=== PATIENT | female | born 1930 | race Caucasian/White ===

== ENCOUNTER 2019-04-09 18:12 | Inpatient (IN) | payer BC ==
--- NOTE | 2019-04-09 19:10 | PDOC ---
History of Present Illness - General Chief Complaint: Shortness of Breath Stated Complaint: SOB History Source: Patient, Family (Son) Exam Limitations: No Limitations - History of Present Illness Initial Comments: Pt is an 88 yo, Pashto-speaking F, with PMH of CHF, COPD, AFib (on eliquis), recent pleural effusions (s/p drainage), L lung CA (s/p LLL lobectomy), IDDM, who is presenting via EMS from [facility] with wheezing and SOB. Pt has been admitted at [place] a few times over the past few months, for pneumonia, b/l LE cellulitis, and "fluid in the lungs" which required drainage on the right side x2. Pt was on steroids 3 weeks ago, but since that time has been doing well and was ambulating at [facility]. Pt began to have dry cough yesterday, and pt had worsening wheezing and respiratory distress after breathing treatments at [facility] this evening. Pt denies any fevers/chills, headache, vision changes, syncope, chest pain, palpitations, nausea/vomiting, abdominal pain, blood in the urine or stool, urinary symptoms, diarrhea/constipation, or leg swelling. Allergies: NKDA PCP: Dr. Ambar Calvo Cards: Dr. Sher ([place]) Social: Pt denies any cigarette, alcohol, or drug use. Pt denies any recent travel or sick contacts. Surgical: LLL lobectomy, hysterectomy, cholecystectomy Family: no relevant history. 04/09/19 20:11 04/09/19 20:36 PT IS DNR/DNI, DISCUSSED WITH SON AND CONFIRMED WITH PAPERWORK TODAY. Son is HCP. 04/09/19 20:39 Past History - Travel Traveled outside of the country in the last 30 days: No Close contact w/someone who was outside of country & ill: No - Past Medical History Allergies/Adverse Reactions: Allergies Allergy/AdvReac Type Severity Reaction Status Date / Time No Known Drug Allergies Allergy Verified 04/09/19 18:24 Home Medications: Ambulatory Orders Aspirin Coated [Ecotrin -] 81 mg PO WEEKLY 01/17/14 Calcium Carbonate [Calcium] 600 mg PO BID 01/17/14 Glimepiride 2 mg PO HS 01/17/14 Irbesartan 300 mg PO HS 01/17/14 Metoprolol Succinate [Toprol XL -] 50 mg PO DAILY 01/17/14 Simvastatin [Zocor -] 20 mg PO DAILY 01/17/14 metFORMIN HCL [Metformin ER Osmotic] 500 mg PO DAILY 01/17/14 Anemia: No Asthma: No Cancer: Yes (LEFT LUNG) Cardiac Disorders: No CVA: No COPD: No CHF: No Dementia: No Diabetes: Yes GI Disorders: No Disorders: Yes (INCONTINENCE) HTN: Yes Hypercholesterolemia: Yes Liver Disease: No Seizures: No Thyroid Disease: No - Surgical History Abdominal Surgery: No Appendectomy: Yes Cardiac Surgery: No Cholecystectomy: No Lung Surgery: Yes (L LOBECTOMY) Neurologic Surgery: No - Immunization History Immunization Up to Date: Yes - Psycho Social/Smoking Cessation Hx Smoking History: Never smoked Have you smoked in the past 12 months: No Information on smoking cessation initiated: No Hx Alcohol Use: No Drug/Substance Use Hx: No Substance Use Type: None Hx Substance Use Treatment: No Respiratory Specific PMHX - Complaint Specific PMHX Hx Airway Support: No Hx Intubation: No Hx Asthma: Yes (COPD) Hx Smoking Exposure: No Hx Vaping: No Hx Allergic Rhinitis: No Hx Exposure to Respiratory Irritants: No Hx Bronchitis: No Hx Pneumonia: Yes Hx Pulmonary Embolus: No Hx TB (Tuberculosis): No Review of Systems - Review of Systems Able to Perform ROS?: Yes Is the patient limited Bulgarian proficient: No Constitutional: Yes: Weight Stable. No: Chills, Diaphoresis, Fever, Loss of Appetite, Malaise, Weakness HEENTM: No: Recent change in vision, Nose Congestion, Throat Pain, Throat Swelling, Difficulty Swallowing Respiratory: Yes: Cough, Shortness of Breath, SOB with Exertion, SOB at Rest, Wheezing. No: Orthopnea, Productive cough, Hemoptysis Cardiac (ROS): Yes: Edema. No: Chest Pain, Irregular Heart Rate, Lightheadedness, Palpitations, Syncope, Chest Tightness ABD/GI: No: Constipated, Diarrhea, Nausea, Poor Appetite, Poor Fluid Intake, Rectal Bleeding, Vomiting, Abdominal cramping : No: Burning, Dysuria, Frequency, Flank Pain, Hematuria, Pain, Urgency Musculoskeletal: No: Joint Pain, Joint Swelling, Muscle Pain, Muscle Weakness Integumentary: No: Rash Neurological: No: Headache, Numbness, Weakness, Unsteady Gait, Dizziness Psychiatric: No: Sleep Pattern Change, Change in Appetite Endocrine: No: Increased Urine, Change in Weight Hematologic/Lymphatic: No: Anemia, Blood Clots, Easy Bleeding, Easy Bruising All Other Systems: Reviewed and Negative *Physical Exam - Vital Signs Last Vital Signs Temp Pulse Resp BP Pulse Ox 98.8 F 101 H 22 H 188/70 H 100 04/09/19 18:48 04/09/19 18:48 04/09/19 18:48 04/09/19 18:24 04/09/19 18:48 - Physical Exam Tachycardic, BP 130s/80s on my exam, pt afebrile. Pt in respiratory distress on venti mask, obese body habitus. Pt alert, but somewhat lethargic. Responds to questions appropriately when asked in Pashto by the son. test clerk generally intact, muscular strength and sensation intact. No midline spinal tenderness, step-offs, or crepitus. Head normocephalic, atraumatic. Eyes PERRLA, EOMI. Oropharynx without erythema or exudates, no LAD b/l. No nasal congestion. Hearing intact. +systolic murmur, +JVD, significant b/l edema of all extremities, pitting to low thigh Severely diminished breath sounds, crackles b/l, +abdominal retractions. No abdominal or CVA tenderness to palpation, no rebound, no guarding. Abdomen soft, non-distended, and with normoactive bowel sounds. Skin without jaundice or rash. 04/09/19 20:29 04/09/19 20:42 ED Treatment Course - LABORATORY CBC & Chemistry Diagram: 04/09/19 19:25 04/09/19 19:25 Medical Decision Making - Medical Decision Making Pt was seen at bedside, also will be seen by attending Dr. Doe. Pt presenting with b/l edema, SOB, +JVD and wheezing from VT, after being provided multiple nebulizer treatments. Presentation more consistent with CHF exacerbation vs pleural effusions vs ACS vs infection (pneumonia) Provided 1 tablet SL NG, starting NG drip @40 mcg, Bipap for respiratory distress and edema. Will continue to reassess pt and monitor for symptomatic improvement. ECG: Accelerated junctional rhythm with PVCs, LAF (Hr 107, QRS 102, QTc 440). No TWIs or significant ST segment changes. Previous EKG from 2013, but is unreadable quality in the chart. 12/13/19 20:47 Pt improved significantly after BIPAP and NG, tapering NG drip down, O2 100% CBC with elevated WBC -- covering for HAP considering recent hospital stay and fluid removal/instrumentation CMP with elevated K and BUN, pt does not report any recent rectal bleeding, pleural effusions likely more from CHF or recurrent malignancy, possible pneumonia; pt was on spironolactone and K supplementation, no new peaked T's Providing 40 mg IV push lasix and [place] catheter for fluid removal Paged hospitalist team for inpatient admission for respiratory assistance, management of effusions. PT IS DNR/DNI 04/09/19 20:50 Pt admitted to hospitalist team (Dr. Carter) 04/09/19 21:21 Discharge - Discharge Information Problems reviewed: Yes Clinical Impression/Diagnosis: Pleural effusion, Hyperkalemia, Respiratory distress Condition: Stable - Admission Yes - Follow up/Referral Referrals: Miguelito Edwards MD [Primary Care Provider] - - Patient Discharge Instructions - Post Discharge Activity
[2019-04-09] MEDS ORDERED: NITROGLYCERIN 25MG/D5W 250ML 25 MG/250 ML ML IVPB SCH (19:30)
[2019-04-09] MEDS ORDERED: NITROGLYCERIN 25MG/D5W 250ML 25 MG/250 ML ML IVPB ONE (19:30)
[2019-04-09 19:44] LABS: BASO % 0.1 % (0-2.0); EOS % 0.4 % (0-4.5); HEMATOCRIT 35.1 % (32.4-45.2); HEMOGLOBIN 10.8 GM/dL (10.7-15.3); LYMPH % 5.3 % (8-40); MCH 30.5 pg (25.7-33.7); MCHC 30.6 g/dl (32.0-36.0); MEAN CELL VOLUME 99.5 fl (80-96); MEAN PLT VOLUME 9.3 fl (7.5-11.1); MONO % 7.2 % (3.8-10.2); PLATELET COUNT 173 K/MM3 (134-434); RBC 3.53 M/mm3 (3.60-5.2); RDW 21.3 % (11.6-15.6); WHITE BLOOD COUNT 14.1 K/mm3 (4.0-10.0)
--- NOTE | 2019-04-09 19:45 | PDOC ---
Attending Attestation - Resident Resident Name: Robyn Azevedo - ED Attending Attestation I have performed the following: I have examined & evaluated the patient, The case was reviewed & discussed with the resident, I agree w/resident's findings & plan - HPI HPI: 04/09/19 21:59 Pt is at [facility],and she has sudden onset SOB today; bilat leg pitting edema; she has known afib and CHF and she was recently placed on bumex and spironolactone , as per her son. - Physicial Exam PE: 04/09/19 21:59 Afebrile 2+ pitting edema of her legs bilaterally; cellulitis is improved; pt recently was treated with abx afor cellulitis of the legs. lungs decreased breaths at the bases heart irregularly irreg. She has bigeminy on her EKG. - Medical Decision Making 04/09/19 21:57 UA normal Flu negative Pt has pleural effusions bilaterally on CXR She is improved with BiPAP Pt was initially given SL NTG and started on a nitro drip which has been since tapered and removed. 04/09/19 21:58 K+ elevated; and creatinine is normal, so patient was treated with lasix 40mg IVP 04/10/19 00:57 Pt admitted to [facility] CHF; pleural effusion
[2019-04-09 19:56] LABS: INR 1.55 (0.83-1.09); PROTHROMBIN TIME (PATIENT) 18.4 SEC (9.7-13.0)
[2019-04-09] MEDS ORDERED: BUMETANIDE INJECTION 1 MG/4 ML VIAL IVPUSH ONE (20:06)
[2019-04-09 20:07] LABS: ARTERIAL BLD GAS O2 SATURATION 99.1 % (95-98); ARTERIAL BLOOD GAS BASE EXCESS 3.9 meq/l (-2-2); ARTERIAL BLOOD GAS PCO2 58.9 mmHg (35-45); ARTERIAL BLOOD GAS PO2 191 mmHg (80-100); ARTERIAL BLOOD GAS pH 7.33 (7.35-7.45); CARBOXYHEMOGLOBIN 1.2 % (0-2)
[2019-04-09] MEDS ORDERED: PIPERACILLIN/TAZOB 3.375 GM 3.375 GM in DEXTROSE 5%-WATER - 50 ML IVPB ONE (20:07)
[2019-04-09] MEDS ORDERED: VANCOMYCIN 1,000 MG in DEXTROSE 5%-WATER - 250 ML IVPB ONE (20:07)
[2019-04-09] MEDS ORDERED: AZITHROMYCIN IVPB 500 MG in DEXTROSE 5%-WATER - 250 ML IVPB ONE (20:08)
[2019-04-09 20:14] LABS: ALBUMIN 3.2 g/dl (3.4-5.0); ALK PHOS 301 U/L (45-117); BILIRUBIN,TOTAL 0.4 mg/dL (0.2-1); BLOOD UREA NITROGEN 57.4 mg/dL (7-18); CALCIUM 8.6 mg/dL (8.5-10.1); CHLORIDE 101 mmol/L (98-107); CO2 32 mmol/L (21-32); CREATININE 0.9 mg/dL (0.55-1.3); GLUCOSE,RANDOM 192 mg/dL (74-106); SGPT/ALT 35 U/L (13-61); SODIUM 138 mmol/L (136-145); TOT PROT 6.4 g/dl (6.4-8.2)
[2019-04-09 20:15] LABS: ANION GAP 5 MMOL/L (8-16); MAGNESIUM 2.9 mg/dL (1.8-2.4); POTASSIUM 5.9 mmol/L (3.5-5.1); SGOT/AST 29 U/L (15-37)
[2019-04-09] MEDS ORDERED: FUROSEMIDE 40 MG/4 ML INJECTABLE VIAL IVPUSH ONE (20:24)
[2019-04-09] MEDS ORDERED: AZITHROMYCIN IVPB 500 MG/250 ML BAG IVPB ONE (20:28)
[2019-04-09] MEDS ORDERED: FUROSEMIDE 40 MG/4 ML INJECTABLE VIAL ONE (20:29)
[2019-04-09] MEDS ORDERED: PIPERACILLIN/TAZOB 3.375 GM 3.375 GM/50 ML BAG IVPB ONE (20:29)
[2019-04-09] MEDS ORDERED: VANCOMYCIN 1 GRAM (PRE-DOCKED) 1,000 MG/250 ML BAG IVPB ONE ×2 (20:29→22:24)
[2019-04-09 20:54] LABS: ANISOCYTOSIS 2+; MACROCYTOSIS 2+
--- NOTE | 2019-04-09 21:06 | PN ---
Teaching Attending Note Name of Resident: Beny Thacker ATTENDING PHYSICIAN STATEMENT I saw and evaluated the patient. I reviewed the resident's note and discussed the case with the resident. I agree with the resident's findings and plan as documented. SUBJECTIVE: 88 yo [place]an-speaking Woman, with PMH of CHF, COPD, AFib (on eliquis), Recent pleural effusion bilateral drainage, L lung CA (s/p LLL lobectomy), IDDM, who is Who was sent in from [facility] with complaints of shortness of breath and wheezing. Noted to have extensive bilateral pleural effusions on chest x-ray, was given vancomycin and Zosyn empirically in the emergency room.After speaking with the son, Yogesh, patient was reported to have right sided thoracocentesis 5 weeks ago at [facility]. She was subsequently sent to [facility] for rehabilitation.As per son, work-up from pleural fluid was negative for any malignancy or infection at that time. OBJECTIVE: Last Vital Signs Temp Pulse Resp BP Pulse Ox 98.8 F 102 H 20 113/55 L 100 04/09/19 18:48 04/09/19 21:09 04/09/19 21:09 04/09/19 21:09 04/09/19 21:09 GENERAL: Well developed, well nourished. Awake and alert. No acute distress. HEENT: Normocephalic, atraumatic. PERRLA, EOMI. No conjunctival pallor. Sclera are non- icteric. Moist mucous membranes. Oropharynx is clear. NECK: Supple. Full ROM. No JVD. Carotid pulses 2+ and symmetric, without bruits. No thyromegaly. No lymphadenopathy. CARDIOVASCULAR: Regular rate and rhythm. No murmurs, rubs, or gallops. Distal pulses are 2+ and symmetric. PULMONARY: Visible respiratory distress, accessory respiratory muscle use, Soft. Non-tender. Non-distended. No rebound or guarding. No organomegaly. Normoactive bowel sounds. MUSCULOSKELETAL Normal range of motion at all joints. No bony deformities or tenderness. No CVA tenderness. EXTREMITIES: Bilateral pitting edema up to knees in lower extremities SKIN: Warm and dry. Normal capillary refill. No rashes. No jaundice. PSYCHIATRIC: Cooperative. Good eye contact. Appropriate mood and affect. Abnormal Lab Results 04/09/19 04/09/19 04/09/19 19:25 19:25 19:25 WBC 14.1 H RBC 3.53 L MCV 99.5 H MCHC 30.6 L RDW 21.3 H Absolute Neuts (auto) 12.2 H Neutrophils % 87.0 H Lymphocytes % 5.3 L PT with INR INR ABG pH ABG pCO2 at Pt Temp ABG pO2 at Pt Temp ABG HCO3 ABG O2 Sat (Measured) ABG Base Excess Potassium 5.9 H Anion Gap 5 L BUN 57.4 H Random Glucose 192 H Magnesium 2.9 H Alkaline Phosphatase 301 H B-Natriuretic Peptide 4738.0 H Albumin 3.2 L 04/09/19 04/09/19 19:25 19:30 WBC RBC MCV MCHC RDW Absolute Neuts (auto) Neutrophils % Lymphocytes % PT with INR 18.40 H INR 1.55 H ABG pH 7.33 L ABG pCO2 at Pt Temp 58.9 H ABG pO2 at Pt Temp 191 H ABG HCO3 30.0 H ABG O2 Sat (Measured) 99.1 H ABG Base Excess 3.9 H Potassium Anion Gap BUN Random Glucose Magnesium Alkaline Phosphatase B-Natriuretic Peptide Albumin Chest x-ray appreciated with reportlarge bilateral pleural effusions appreciated ASSESSMENT AND PLAN: 88-year-old woman with history of lung cancer status post left lower lobe lung resection with hypoxemic, hypercapnic respiratory failure Likely secondary to bilateral pleural effusions along with possibles COPD exacerbationnoted to have CO2 retention on ABG. Patient is noted to be DNR/DNI. Cannot rule out hospital-acquired pneumonia as patient has leukocytosis, respiratory distress, cough.Pleural effusions may be secondary to her CHF however should rule out parapneumonic effusion from possible pneumonia. Admit to telemetry Discuss goals of cares with family Obtain medical records from [facility] Infectious disease consult Vancomycin, cefepime, azithromycin for treatment of pneumonia Lactic acid Continue BiPAP Trend troponin We will need to repeat blood gas CT Of chest to evaluate full extent of pleural effusions bilaterally Pulmonary evaluation for possible therapeutic and diagnostic thoracocentesis bilaterally Monitor vital signs closely #Normocytic anemia Trend CBC Stool for fecal occult blood Iron studies, ferritin, TSH, vitamin B12, red blood smear #Fluid overloadmay be secondary to CHF, bilateral pedal edema, pleural effusions Furosemide 40 mg IV daily Spironolactone Transthoracic echo Fluid and salt restriction I's and O's Daily weights Lower extremity Doppler bilaterally to rule out DVT Cardiology consult #Hyperkalemia Insulin , Furosemide Repeat potassium #Diabetes mellitus with uncontrolled hyperglycemia NovoLog sliding scale Send A1c #Elevated alkaline phosphatase Right upper quadrant ultrasound to rule out cholestatic process #DVT prophylaxisheparin subcutaneously
[2019-04-09 21:41] LABS: URINE APPEARANCE CLEAR; URINE BILIRUBIN NEGATIVE (NEGATIVE); URINE COLOR YELLOW; URINE GLUCOSE (UA) NEGATIVE (NEGATIVE); URINE KETONE NEGATIVE (NEGATIVE); URINE LEUK ESTERASE NEGATIVE (NEGATIVE); URINE NITRITE NEGATIVE (NEGATIVE); URINE PROTEIN NEGATIVE (NEGATIVE); URINE UROBILINOGEN 0.2 mg/dL (0.2-1.0)
--- NOTE | 2019-04-09 22:31 | HP ---
CHIEF COMPLAINT: Shortness of breath PCP: Dr. Ambar Calvo HISTORY OF PRESENT ILLNESS: Patient is [place] speaking, and the son is bedside and serving as assembler erector 88F with PMH of COPD, CHF, AFib on Elliquis, DM II, Lung cancer s/p resection who presents with 1 day history of wheezing and shortness of breath from [facility]. Patient was at [facility] for short term rehab after a recent decline in health the past few months. During the previous 2 weeks, patient was stable while at [facility], only receiving nasal cannula oxygen at night, with no oxygen needs during the day. Yesterday staff noted that she was wheezing with a nonproductive cough, and today she required nasal cannula during the daytime. Patient received treatments while at the facility but they did not help her respiratory status. Patient was feeling more lethargic, and patient's son noted that she had increased swelling of her legs. Patient denies any chest pain, but does feel that she is having palpitations. Patient denies pleuritic pain, abdominal pain, dysuria, hematuria, nausea, vomiting, and diarrhea. ER course was notable for: (1)Chest X-Ray showed notable effusions b/l (2)Patient was given Zoysn 3.375 gram IV, Zithromax 500 mg IV, and Vancomycin 1 gram IV (3)Patient was placed on BiPAP for respiratory distress Recent Travel: none PAST MEDICAL HISTORY: CHF, COPD, Afib on Elliquis, lung cancer s/p LLL resection , DM II FAMILY MEDICAL HISTORY: Brother with dementia PAST SURGICAL HISTORY: Tanner placed in right femur in 2019. Hysterectomy, ? hand surgery. Social History: Smoking:Denies Alcohol:Denies Drugs: Denies Currently lives with son and daugther in law. Allergies No Known Drug Allergies Allergy (Verified 04/09/19 18:24) HOME MEDICATIONS: Home Medications Medication Instructions Recorded Apixaban [Eliquis] 2.5 mg PO BID 04/09/19 Atorvastatin Calcium 20 mg PO HS 04/09/19 Bumetanide 2 mg PO BID 04/09/19 Diltiazem [Cardizem -] 60 mg PO DAILY 04/09/19 Docusate Sodium [Colace] 300 mg PO DAILY 04/09/19 Insulin Glargine,Hum.rec.anlog 5 unit SQ HS 04/09/19 [Basaglar Kwikpen U-100] Ipratropium/Albuterol Sulfate 3 ml IH Q6H 04/09/19 [Iprat-Albut 0.5-3(2.5) mg/3 ml] L. Acidophilus/Pectin, Pease 1 each PO DAILY 04/09/19 [Acidophilus Capsule] Magnesium Oxide 400 mg PO BID 04/09/19 Magnesium Oxide 400 mg PO BID 04/09/19 Metoprolol Succinate 25 mg PO DAILY 04/09/19 Nut.tx.gluc.intoler,Lac-Fr,Soy 237 ml PO BID 04/09/19 [Glucerna] Polyethylene Glycol 3350 [Miralax 17 gm PO DAILY 04/09/19 (For Daily Use) -] Potassium Chloride 20 meq PO BID 04/09/19 Sitagliptin Phosphate [Januvia -] 50 mg PO DAILY 04/09/19 Spironolactone [Aldactone] 50 mg PO DAILY 04/09/19 acetaZOLAMIDE [Diamox -] 250 mg PO DAILY 04/09/19 REVIEW OF SYSTEMS CONSTITUTIONAL: Absent: fever, chills, diaphoresis, generalized weakness, malaise, loss of appetite, weight change HEENT: Absent: rhinorrhea, nasal congestion, throat pain, throat swelling, difficulty swallowing, mouth swelling, ear pain, eye pain, visual changes CARDIOVASCULAR: Absent: chest pain, syncope, palpitations, irregular heart rate, lightheadedness , peripheral edema RESPIRATORY: cough, shortness of breath, Absent: dyspnea with exertion, orthopnea, wheezing, stridor, hemoptysis GASTROINTESTINAL: Absent: abdominal pain, abdominal distension, nausea, vomiting, diarrhea, constipation, melena, hematochezia GENITOURINARY: Absent: dysuria, frequency, urgency, hesitancy, hematuria, flank pain, genital pain MUSCULOSKELETAL: Absent: myalgia, arthralgia, joint swelling, back pain, neck pain SKIN: Absent: rash, itching, pallor HEMATOLOGIC/IMMUNOLOGIC: Absent: easy bleeding, easy bruising, lymphadenopathy, frequent infections ENDOCRINE: Absent: unexplained weight gain, unexplained weight loss, heat intolerance, cold intolerance NEUROLOGIC: Absent: headache, focal weakness or paresthesias, dizziness, unsteady gait, seizure, mental status changes, bladder or bowel incontinence PSYCHIATRIC: Absent: anxiety, depression, suicidal or homicidal ideation, hallucinations. PHYSICAL EXAMINATION Vital Signs - 24 hr 12/13/19 12/13/19 12/13/19 18:15 18:24 18:48 Temperature 98.8 F 98 F 98.8 F Pulse Rate 112 H 57 L 101 H Pulse Rate [ Apical] Respiratory 26 H 16 22 H Rate Blood Pressure 118/87 188/70 H Blood Pressure [Right Arm] O2 Sat by Pulse 100 97 100 Oximetry (%) 04/09/19 04/09/19 04/09/19 19:30 19:45 19:49 Temperature Pulse Rate Pulse Rate [ 98 H 95 H Apical] Respiratory 26 H 24 H Rate Blood Pressure Blood Pressure 137/98 118/76 [Right Arm] O2 Sat by Pulse 100 100 Oximetry (%) 04/09/19 04/09/19 04/09/19 19:50 20:00 20:15 Temperature Pulse Rate 106 H Pulse Rate [ 86 103 H Apical] Respiratory 24 H 20 Rate Blood Pressure Blood Pressure 126/77 110/82 [Right Arm] O2 Sat by Pulse 100 100 100 Oximetry (%) 04/09/19 04/09/19 04/09/19 20:35 20:49 21:09 Temperature Pulse Rate Pulse Rate [ 100 H 102 H 102 H Apical] Respiratory 12 18 20 Rate Blood Pressure Blood Pressure 118/70 117/56 L 113/55 L [Right Arm] O2 Sat by Pulse 100 100 100 Oximetry (%) GENERAL: Awake, alert, and fully oriented, in no acute distress. HEAD: Normal with no signs of trauma. EYES: Pupils equal, round and reactive to light, extraocular movements intact, sclera anicteric, conjunctiva clear. EARS, NOSE, THROAT: Ears normal, nares patent, oropharynx clear without exudates. NECK: Normal range of motion, supple without lymphadenopathy, JVD present LUNGS: Breath sounds with crackles. Difficult to fully appreciate due to how loud the BiPAP machine was . HEART: Regular rate and rhythm, normal S1 and S2 without murmur, rub or gallop. ABDOMEN: Soft, nontender, not distended, normoactive bowel sounds, no guarding, no rebound, no masses. No hepatomegaly or splenomegaly. MUSCULOSKELETAL: Normal range of motion at all joints. No bony deformities or tenderness. No CVA tenderness. UPPER EXTREMITIES: 2+ pulses, warm, well-perfused. No cyanosis. No clubbing. No peripheral edema. LOWER EXTREMITIES: 2+ pulses, warm, well-perfused. No calf tenderness. 2+ pitting edema. Cellulitis present on right leg. PSYCHIATRIC: Cooperative. Good eye contact. Appropriate mood and affect. SKIN: Warm, dry, normal turgor, no rashes or lesions noted, normal capillary refill. Laboratory Results - last 24 hr 04/09/19 04/09/19 04/09/19 19:25 19:25 19:25 WBC 14.1 H RBC 3.53 L Hgb 10.8 Hct 35.1 MCV 99.5 H MCH 30.5 MCHC 30.6 L RDW 21.3 H Plt Count 173 MPV 9.3 Absolute Neuts (auto) 12.2 H Neutrophils % 87.0 H Lymphocytes % 5.3 L Monocytes % 7.2 Eosinophils % 0.4 Basophils % 0.1 Nucleated RBC % 0 Anisocytosis 2+ Microcytosis 2+ Macrocytosis 2+ PT with INR INR Anticoagulation Therapy Puncture Site ABG pH ABG pCO2 at Pt Temp ABG pO2 at Pt Temp ABG HCO3 ABG O2 Sat (Measured) ABG O2 Content ABG Base Excess Henri Test Carboxyhemoglobin Methemoglobin O2 Delivery Device Oxygen Flow Rate Vent Mode Vent Rate Mechanical Rate Pressure Support Vent Sodium 138 Potassium 5.9 H Chloride 101 Carbon Dioxide 32 Anion Gap 5 L BUN 57.4 H Creatinine 0.9 Est GFR (CKD-EPI)AfAm 65.70 Est GFR (CKD-EPI)NonAf 56.69 POC Glucometer Random Glucose 192 H Calcium 8.6 Magnesium 2.9 H Total Bilirubin 0.4 AST 29 ALT 35 Alkaline Phosphatase 301 H Creatine Kinase 55 Troponin I < 0.02 B-Natriuretic Peptide Total Protein 6.4 Albumin 3.2 L Urine Color Urine Appearance Urine pH Ur Specific [place] Urine Protein Urine Glucose (UA) Urine Ketones Urine Blood Urine Nitrite Urine Bilirubin Urine Urobilinogen Ur Leukocyte Esterase Influenza A (Rapid) Negative Influenza B (Rapid) Negative 04/09/19 04/09/19 04/09/19 19:25 19:25 19:30 WBC RBC Hgb Hct MCV MCH MCHC RDW Plt Count MPV Absolute Neuts (auto) Neutrophils % Lymphocytes % Monocytes % Eosinophils % Basophils % Nucleated RBC % Anisocytosis Microcytosis Macrocytosis PT with INR 18.40 H INR 1.55 H Anticoagulation Therapy No Result Required. Puncture Site Right radial ABG pH 7.33 L ABG pCO2 at Pt Temp 58.9 H ABG pO2 at Pt Temp 191 H ABG HCO3 30.0 H ABG O2 Sat (Measured) 99.1 H ABG O2 Content 11.3 ABG Base Excess 3.9 H Henri Test No Result Required. Carboxyhemoglobin 1.2 Methemoglobin < 1.0 O2 Delivery Device No Result Required. Oxygen Flow Rate Yes Vent Mode No Result Required. Vent Rate No Result Required. Mechanical Rate No Result Required. Pressure Support Vent No Result Required. Sodium Potassium Chloride Carbon Dioxide Anion Gap BUN Creatinine Est GFR (CKD-EPI)AfAm Est GFR (CKD-EPI)NonAf POC Glucometer Random Glucose Calcium Magnesium Total Bilirubin AST ALT Alkaline Phosphatase Creatine Kinase Troponin I B-Natriuretic Peptide 4738.0 H Total Protein Albumin Urine Color Urine Appearance Urine pH Ur Specific [place] Urine Protein Urine Glucose (UA) Urine Ketones Urine Blood Urine Nitrite Urine Bilirubin Urine Urobilinogen Ur Leukocyte Esterase Influenza A (Rapid) Influenza B (Rapid) 04/09/19 04/09/19 19:38 21:14 WBC RBC Hgb Hct MCV MCH MCHC RDW Plt Count MPV Absolute Neuts (auto) Neutrophils % Lymphocytes % Monocytes % Eosinophils % Basophils % Nucleated RBC % Anisocytosis Microcytosis Macrocytosis PT with INR INR Anticoagulation Therapy Puncture Site ABG pH ABG pCO2 at Pt Temp ABG pO2 at Pt Temp ABG HCO3 ABG O2 Sat (Measured) ABG O2 Content ABG Base Excess Henri Test Carboxyhemoglobin Methemoglobin O2 Delivery Device Oxygen Flow Rate Vent Mode Vent Rate Mechanical Rate Pressure Support Vent Sodium Potassium Chloride Carbon Dioxide Anion Gap BUN Creatinine Est GFR (CKD-EPI)AfAm Est GFR (CKD-EPI)NonAf POC Glucometer 195 Random Glucose Calcium Magnesium Total Bilirubin AST ALT Alkaline Phosphatase Creatine Kinase Troponin I B-Natriuretic Peptide Total Protein Albumin Urine Color Yellow Urine Appearance Clear Urine pH 5.0 Ur Specific [place] 1.010 Urine Protein Negative Urine Glucose (UA) Negative Urine Ketones Negative Urine Blood Negative Urine Nitrite Negative Urine Bilirubin Negative Urine Urobilinogen 0.2 Ur Leukocyte Esterase Negative Influenza A (Rapid) Influenza B (Rapid) ASSESSMENT/PLAN: 88 F with PMH of lung cancer s/p left lower lobe lung resection with hypoxemic, hyercapnic respiratory failure likely secondary to bilateral pleural effusion in the lungs 1) CHF exacerbation with pleural effusions -Admit to telemetry -Chest X-ray shows b/l effusions -CT of chest shows significant effusions on the right side. Had effusions drained 5 weeks ago, these may be recurrent. -Patient has leukocytosis, may have effusions may be due to pneumonia. Hospital Acquired pneumonia as patient had IV antibiotics at [facility] recently. -Lactic Acid of 2.1 -Daily I&O and weights. -Patient refused Chest CT with contrast to rule out PE- has Well's score of 4 -ID consulted, appreciate recs -Pulmonology consulted, appreciate recs -F/U repeat ABG -Continue BiPAP -F/U legionella -Vancomycin 1 gram daily -Cefepime 200 gram Q8H -Azithromycin 500 mg Daily 2) COPD -ABG shows that patient was retaining CO2 and respiratory acidosis. -On BiPAP 3)Normocytic Anemia -Trend CBC -Fecal occult blood -Iron Studies -B12 -TSH 4) Hyperkalemia -Sliding scale insulin -Furosemide 40 mg IV swan -Monitor CMP -Holding Spironolactone 5)Cellulitis of the right leg. Rule out DVT with Doppler extremity. 6)Diabetes mellitus with uncontrolled hyperglycemia -Insulin Sliding scale -HbA1c 7)Elevated Alk Phos -F/U RUQ U/S DVT: Patient on Elliquis 2.5 mg PO BID Dispo: Admitted to telemetry Visit type - Emergency Visit Emergency Visit: Yes ED Registration Date: 04/09/19 Care time: The patient presented to the Emergency Department on the above date and was hospitalized for further evaluation of their emergent condition. - New Patient This patient is new to me today: Yes Date on this admission: 04/10/19 - Critical Care Critical Care patient: No ATTENDING PHYSICIAN STATEMENT I saw and evaluated the patient. I reviewed the resident's note and discussed the case with the resident. I agree with the resident's findings and plan as documented. SUBJECTIVE: OBJECTIVE: ASSESSMENT AND PLAN:
[2019-04-09] MEDS ORDERED: ACETAMINOPHEN 1000 MG/100 ML VIAL (NON FORMULARY) IVPB ONE (22:34)
[2019-04-09] MEDS ORDERED: ACETAMINOPHEN INJECTION 100 ML IVPB ONE (22:45)
[2019-04-10] MEDS: methylPREDNISolone NA SUCC 40 MG/1 ML VIAL IVPUSH SCH ×3 (02:08→17:02)
[2019-04-10] MEDS ORDERED: methylPREDNISolone NA SUCC 40 MG/1 ML VIAL ONE (02:09)
[2019-04-10 05:09] LABS: ARTERIAL BLD GAS O2 SATURATION 97.7 % (95-98); ARTERIAL BLOOD GAS PCO2 57.7 mmHg (35-45); ARTERIAL BLOOD GAS PO2 117 mmHg (80-100); ARTERIAL BLOOD GAS pH 7.33 (7.35-7.45)
[2019-04-10 05:10] LABS: ALLENS TEST POSITIVE; ARTERIAL BLOOD GAS BASE EXCESS 3.4 meq/l (-2-2)
[2019-04-10 07:17] LABS: BASO % 0.1 % (0-2.0); EOS % 0.1 % (0-4.5); HEMATOCRIT 35.8 % (32.4-45.2); HEMOGLOBIN 11.2 GM/dL (10.7-15.3); LYMPH % 3.4 % (8-40); MCH 30.6 pg (25.7-33.7); MCHC 31.1 g/dl (32.0-36.0); MEAN CELL VOLUME 98.1 fl (80-96); MEAN PLT VOLUME 8.7 fl (7.5-11.1); MONO % 2.7 % (3.8-10.2); NEUT % 93.7 % (42.8-82.8); PLATELET COUNT 143 K/MM3 (134-434); RBC 3.65 M/mm3 (3.60-5.2); WHITE BLOOD COUNT 11.5 K/mm3 (4.0-10.0)
[2019-04-10 07:40] LABS: ALBUMIN 3.3 g/dl (3.4-5.0); BILIRUBIN,TOTAL 0.6 mg/dL (0.2-1); BLOOD UREA NITROGEN 57.3 mg/dL (7-18); CALCIUM 8.9 mg/dL (8.5-10.1); TOT PROT 6.2 g/dl (6.4-8.2)
[2019-04-10] MEDS: INSULIN SLIDING SCALE (NOVOLOG) 1 VIAL SQ SCH ×3 (08:06→22:42)
[2019-04-10] MEDS: FUROSEMIDE 40 MG/4 ML INJECTABLE VIAL IVPUSH SCH (09:20)
[2019-04-10] MEDS: APIXABAN 2.5 MG TABLET PO SCH ×2 (09:20→22:42)
[2019-04-10] MEDS: AZITHROMYCIN IVPB 500 MG/250 ML BAG IVPB SCH (09:21)
[2019-04-10] MEDS ORDERED: CEFEPIME 2 GM in DEXTROSE 5%-WATER - 50 ML IVPB ONE (09:30)
[2019-04-10] MEDS ORDERED: VANCOMYCIN 1 GM in D5W (PRE-DOCKED) 1,000 MG/250 ML IVPB ONE (10:00)
[2019-04-10] MEDS ORDERED: dilTIAZem HCL 60 MG TABLET (FP) PO SCH (10:00)
--- NOTE | 2019-04-10 10:17 | EKG ---
Test Reason : Blood Pressure : / mmHG Vent. Rate : 107 BPM Atrial Rate : 054 BPM P-R Int : 000 ms QRS Dur : 102 ms QT Int : 330 ms P-R-T Axes : 000 -55 117 degrees QTc Int : 440 ms ATRIAL FIBRILLATION WITH RAPID VENTRICULAR RESPONSE LEFT ANTERIOR FASCICULAR BLOCK CANNOT RULE OUT INFERIOR INFARCT (CITED ON OR BEFORE 09-APR-2019) Confirmed by KEVIN MOORE MD ([id number]) on 04/10/2019 10:17:20 AM Referred By: Confirmed By:KEVIN MOORE MD
--- NOTE | 2019-04-10 10:18 | EKG ---
Test Reason : Blood Pressure : / mmHG Vent. Rate : 110 BPM Atrial Rate : 110 BPM P-R Int : 000 ms QRS Dur : 104 ms QT Int : 326 ms P-R-T Axes : 000 -55 113 degrees QTc Int : 441 ms ATRIAL FIBRILLATION WITH RAPID VENTRICULAR RESPONSE WITH PREMATURE VENTRICULAR OR ABERRANTLY CONDUCTED COMPLEXES CANNOT RULE OUT INFERIOR INFARCT (MASKED BY FASCICULAR BLOCK?) , AGE UNDETERMINED ANTEROLATERAL INFARCT , AGE UNDETERMINED ABNORMAL ECG Confirmed by OSCAR COREY, KEVIN ([id number]) on 04/10/2019 10:18:21 AM Referred By: Confirmed By:KEVIN MOORE MD
[2019-04-10] MEDS ORDERED: PT OWN MED DRAWER 7, Y5N ONE (10:50)
--- NOTE | 2019-04-10 10:57 | PN ---
Progress Note (short form) - Note Progress Note: PULMONARY CONSULTATION DICTATED 04/10/19 IMP ACUTE HYPOXEMIC/HYPERCAPNEIC RESPIRATORY FAILURE ACUTE ON CHRONIC CHF VALVULAR HD H/O LUNG CA S/P RESECTION 2010 R PLEURAL EFFUSION DM HTN H/O COPD AFIB ON ELIQUIS ELEVATED LACTATE LEVEL ANEMIA PLAN DIURETICS O2 INHALED BRONCHODILATORS NIPPV NEEDED F/U ABGS F/U CHEST X-RAYS ECHO DAILY WTS TREND LACTATE THORACENTESIS IF NO IMPROVEMENT IN PLEURAL EFFUSIONS WITH DIURESIS MONITOR LYTES,RENAL FUNCTION,H+H ABX PER ID DR CEDEÑO Problem List - Problems (1) Acute respiratory failure with hypercapnia Code(s): J96.02 - ACUTE RESPIRATORY FAILURE WITH HYPERCAPNIA (2) Acute respiratory failure with hypoxia and hypercapnia Code(s): J96.01 - ACUTE RESPIRATORY FAILURE WITH HYPOXIA; J96.02 - ACUTE RESPIRATORY FAILURE WITH HYPERCAPNIA (3) Pleural effusion Code(s): J90 - PLEURAL EFFUSION, NOT ELSEWHERE CLASSIFIED (4) VHD (valvular heart disease) Code(s): I38 - ENDOCARDITIS, VALVE UNSPECIFIED (5) Diabetes Code(s): E11.9 - TYPE 2 DIABETES MELLITUS WITHOUT COMPLICATIONS (6) Pleural effusion Code(s): J90 - PLEURAL EFFUSION, NOT ELSEWHERE CLASSIFIED (7) Afib Code(s): I48.91 - UNSPECIFIED ATRIAL FIBRILLATION (8) H/O: lung cancer Code(s): Z85.118 - PERSONAL HISTORY OF MALIGNANT NEOPLASM OF BRONCHUS AND LUNG (9) Lactic acid acidosis Code(s): E87.2 - ACIDOSIS (10) Acute diastolic CHF (congestive heart failure) Code(s): I50.31 - ACUTE DIASTOLIC (CONGESTIVE) HEART FAILURE (11) Acute CHF (congestive heart failure) Code(s): I50.9 - HEART FAILURE, UNSPECIFIED
[2019-04-10 11:40] LABS: ANISOCYTOSIS 2+; MACROCYTOSIS 1+
--- NOTE | 2019-04-10 12:06 | CONS ---
PULMONARY CONSULTATION DATE OF CONSULTATION: 04/10/2019 REFERRING PHYSICIAN: Jigar Feng MD HISTORY: This is an 88-year-old female with past medical history of questionable COPD secondary to 2nd-hand exposure, CHF, atrial fibrillation on Eliquis, type 2 diabetes mellitus, history of lung cancer status post partial resection of left lower lobe 2011 stable, had a CAT scan 1 month ago, which reveals no change, valvular heart disease. Admitted to [facility] secondary to shortness of breath and wheezing. Patient was recently hospitalized at [facility] secondary to CHF as well as hypoglycemia. She was discharged and transferred to [facility] for short-term rehabilitation. Apparently, for 2 weeks the patient was stable at [facility]. Only received nasal cannula at nighttime. No oxygen needed during the day. On the day of admission, the patient was noted to have increasing shortness of breath, cough nonproductive as well as wheezing as well as progressive hypoxia. Over at the halfway, she received inhaled bronchodilators without any significant improvement. She also was feeling more lethargic, and the patient notes that she had increasing right extremity edema at which time she was transferred to [facility] ER. In the ER, she had a CT scan of the chest, which revealed bilateral pleural effusions, right greater than left. She was also noted to be hypoxic and hypercapnic and placed on BiPAP and transferred to medical floor for further management. She was administered broad-spectrum antibiotics as well as Lasix. Of note is also the patient underwent a thoracentesis at [facility], and apparently the results were consistent with congestive heart failure. PAST MEDICAL HISTORY: Again includes atrial fibrillation on Eliquis, questionable for COPD, CHF, diabetes type 2, lung cancer status post resection, anemia. SOCIAL HISTORY: Born in [place]. Moved to the [place] years ago. No occupational exposures. Positive 2nd-hand smoke exposure. REVIEW OF SYSTEMS: Positive shortness of breath, positive cough nonproductive, positive orthopnea. No chest pain, no palpitations. Positive for lower extremity edema. MEDICATIONS: Include Solu-Medrol 40 every 8, Zithromax, cefepime, vancomycin, Eliquis, DuoNeb, Cardizem, Lipitor, Norvasc, Lasix. PHYSICAL EXAMINATION: General: Patient is an elderly female awake, alert in no acute distress. Vital Signs: She is afebrile. Blood pressure 134/64, respiratory rate is 22, O2 saturation is 100% on 2 L nasal cannula. HEENT: Normocephalic, atraumatic. Neck: Supple. Heart: Irregularly irregular S1, S2. Chest: Bibasilar crackles and diminished breath sounds at the right base. Abdomen: Soft. Bowel sounds are positive. Extremities: Positive for lower extremity edema. Ultrasound of the abdomen revealed limited exam, mild fatty infiltration of the liver. Note a complex mass-like density in the upper mid abdomen measuring 5.3 [address], [id number] right pleural effusion. Small left pleural effusion. Bibasilar consolidation and atelectasis. LABORATORIES: Chemistries; BUN 57, creatinine 1.0, lactate 2.3. BNP 4738. WBC 11.5, hemoglobin 11.2, hematocrit 35.8 with a platelet count of 143,000. There are polys, 3 lymphocytes, and 2 monocytes. Blood gas; pH 7.33, PCO2 of 57, PO2 of 117, bicarbonate of 30, saturation 97 on unknown quantity of oxygen. IMPRESSION: 1. History of acute hypoxemic, hypercapnic respiratory failure secondary to acute on chronic heart failure. 2. Valvular heart disease. 3. Bilateral pleural effusions right greater than left likely secondary to congestive heart failure. 4. History of lung cancer status post resection 2010. 5. Type 2 diabetes mellitus. 6. Hypertension. 7. History of chronic obstructive pulmonary disease. 8. Atrial fibrillation on Eliquis. 9. Elevated lactate level. 10. Anemia. 11. Rule out possible underlying infectious process. PLAN: Antibiotics as per ID. Continue diuretics. Supplemental O2. Inhaled bronchodilators. NIPPV as needed. Follow up ABGs. Follow up chest x-rays. Daily weight. Obtain echocardiogram. Trend lactate. Thoracentesis if no improvement in pleural effusion with diuresis. Monitor electrolytes, renal function, hemoglobin, hematocrit. Antibiotics as per Infectious Disease. BRIAN CEDEÑO M.D. [id number]
[2019-04-10] MEDS: ALBUTEROL SO4 2.5/IPRATROPIUM 0.5 INH SOL 3 ML VIAL.NEB. NEB PRN ×2 (12:34→21:20)
--- NOTE | 2019-04-10 14:40 | PN ---
Progress Note (short form) - Note Progress Note: family at bedside She has multiple admission sto [facility]-- in [place] for STR Awake and seated on chair Baseline awake, oriented, walks with walker Feels less sob today Vital Signs - 24 hr 04/09/19 04/09/19 04/09/19 18:15 18:24 18:48 Temperature 98.8 F 98 F 98.8 F Pulse Rate 112 H 57 L 101 H Pulse Rate [ Apical] Respiratory 26 H 16 22 H Rate Blood Pressure 118/87 188/70 H Blood Pressure [Right Arm] O2 Sat by Pulse 100 97 100 Oximetry (%) 04/09/19 04/09/19 04/09/19 19:30 19:45 19:49 Temperature Pulse Rate Pulse Rate [ 98 H 95 H Apical] Respiratory 26 H 24 H Rate Blood Pressure Blood Pressure 137/98 118/76 [Right Arm] O2 Sat by Pulse 100 100 Oximetry (%) 04/09/19 04/09/19 04/09/19 19:50 20:00 20:15 Temperature Pulse Rate 106 H Pulse Rate [ 86 103 H Apical] Respiratory 24 H 20 Rate Blood Pressure Blood Pressure 126/77 110/82 [Right Arm] O2 Sat by Pulse 100 100 100 Oximetry (%) 04/09/19 04/09/19 04/09/19 20:35 20:49 21:09 Temperature Pulse Rate Pulse Rate [ 100 H 102 H 102 H Apical] Respiratory 12 18 20 Rate Blood Pressure Blood Pressure 118/70 117/56 L 113/55 L [Right Arm] O2 Sat by Pulse 100 100 100 Oximetry (%) 04/10/19 04/10/19 04/10/19 00:00 00:34 01:57 Temperature 97.5 F L Pulse Rate Pulse Rate [ 83 Apical] Respiratory 20 Rate Blood Pressure Blood Pressure 116/58 L [Right Arm] O2 Sat by Pulse 95 99 100 Oximetry (%) 04/10/19 04/10/19 04/10/19 03:30 05:00 09:00 Temperature 97.5 F L 97.5 F L 98 F Pulse Rate 80 90 92 H Pulse Rate [ Apical] Respiratory 21 H 21 H 22 H Rate Blood Pressure 110/74 119/71 134/64 Blood Pressure [Right Arm] O2 Sat by Pulse 100 Oximetry (%) Current Medications Generic Name Dose Route Start Last Admin Trade Name Freq PRN Reason Stop Dose Admin Albuterol/Ipratropium 1 amp 04/09/19 22:53 Duoneb - NEB Q6H PRN SHORTNESS OF BREATH Apixaban 2.5 mg 04/10/19 10:00 04/10/19 09:20 Eliquis - PO 2.5 mg BID [facility] Administration Atorvastatin Calcium 20 mg 04/10/19 22:00 Lipitor - PO HS OMID Diltiazem HCl 60 mg 04/10/19 10:00 04/10/19 09:21 Cardizem - PO 60 mg DAILY [facility] Administration Furosemide 40 mg 04/10/19 10:00 04/10/19 09:20 Lasix Injection - IVPUSH 40 mg DAILY [facility] Administration Azithromycin 500 mg in 250 mls @ 250 mls/hr 04/10/19 10:00 04/10/19 09:21 Zithromax 500mg Ivpb (Pre-Docked) IVPB 250 mls/hr DAILY [facility] Administration Cefepime HCl 2 gm in 50 mls @ 100 mls/hr 04/10/19 21:30 Maxipime 2gm Ivpb (Premix) IVPB Q8H-IV [facility] Protocol Insulin Aspart 1 vial 04/10/19 07:00 04/10/19 11:31 Novolog Vial Sliding Scale - SQ 8 units ACHS [facility] Administration Protocol Methylprednisolone Sodium Succinate 40 mg 04/10/19 02:00 04/10/19 09:20 Solu-Medrol - IVPUSH 40 mg Q8H-IV [facility] Administration Vancomycin HCl 1,000 mg 04/10/19 21:30 Vancomycin (Pre-Docked) IVPB DAILY [facility] Protocol Laboratory Results - last 24 hr 04/09/19 04/09/19 04/09/19 19:25 19:25 19:25 WBC 14.1 H RBC 3.53 L Hgb 10.8 Hct 35.1 MCV 99.5 H MCH 30.5 MCHC 30.6 L RDW 21.3 H Plt Count 173 MPV 9.3 Absolute Neuts (auto) 12.2 H Total Counted Neutrophils % 87.0 H Neutrophils % (Manual) Band Neutrophils % Lymphocytes % 5.3 L Lymphocytes % (Manual) Monocytes % 7.2 Monocytes % (Manual) Eosinophils % 0.4 Eosinophils % (Manual) Basophils % 0.1 Nucleated RBC % 0 Hypochromia Anisocytosis 2+ Microcytosis 2+ Macrocytosis 2+ PT with INR INR Anticoagulation Therapy Puncture Site ABG pH ABG pCO2 at Pt Temp ABG pO2 at Pt Temp ABG HCO3 ABG O2 Sat (Measured) ABG O2 Content ABG Base Excess Henri Test Carboxyhemoglobin Methemoglobin O2 Delivery Device Oxygen Flow Rate Vent Mode Vent Rate Mechanical Rate Pressure Support Vent Sodium 138 Potassium 5.9 H Chloride 101 Carbon Dioxide 32 Anion Gap 5 L BUN 57.4 H Creatinine 0.9 Est GFR (CKD-EPI)AfAm 65.70 Est GFR (CKD-EPI)NonAf 56.69 POC Glucometer Random Glucose 192 H Lactic Acid Calcium 8.6 Magnesium 2.9 H Iron TIBC Iron Saturation Unsaturated IBC Ferritin Total Bilirubin 0.4 AST 29 ALT 35 Alkaline Phosphatase 301 H Creatine Kinase 55 Troponin I < 0.02 B-Natriuretic Peptide Total Protein 6.4 Albumin 3.2 L Urine Color Urine Appearance Urine pH Ur Specific Moro Urine Protein Urine Glucose (UA) Urine Ketones Urine Blood Urine Nitrite Urine Bilirubin Urine Urobilinogen Ur Leukocyte Esterase Influenza A (Rapid) Negative Influenza B (Rapid) Negative 04/09/19 04/09/19 04/09/19 19:25 19:25 19:30 WBC RBC Hgb Hct MCV MCH MCHC RDW Plt Count MPV Absolute Neuts (auto) Total Counted Neutrophils % Neutrophils % (Manual) Band Neutrophils % Lymphocytes % Lymphocytes % (Manual) Monocytes % Monocytes % (Manual) Eosinophils % Eosinophils % (Manual) Basophils % Nucleated RBC % Hypochromia Anisocytosis Microcytosis Macrocytosis PT with INR 18.40 H INR 1.55 H Anticoagulation Therapy No Result Required. Puncture Site Right radial ABG pH 7.33 L ABG pCO2 at Pt Temp 58.9 H ABG pO2 at Pt Temp 191 H ABG HCO3 30.0 H ABG O2 Sat (Measured) 99.1 H ABG O2 Content 11.3 ABG Base Excess 3.9 H Henri Test No Result Required. Carboxyhemoglobin 1.2 Methemoglobin < 1.0 O2 Delivery Device No Result Required. Oxygen Flow Rate Yes Vent Mode No Result Required. Vent Rate No Result Required. Mechanical Rate No Result Required. Pressure Support Vent No Result Required. Sodium Potassium Chloride Carbon Dioxide Anion Gap BUN Creatinine Est GFR (CKD-EPI)AfAm Est GFR (CKD-EPI)NonAf POC Glucometer Random Glucose Lactic Acid Calcium Magnesium Iron TIBC Iron Saturation Unsaturated IBC Ferritin Total Bilirubin AST ALT Alkaline Phosphatase Creatine Kinase Troponin I B-Natriuretic Peptide 4738.0 H Total Protein Albumin Urine Color Urine Appearance Urine pH Ur Specific Moro Urine Protein Urine Glucose (UA) Urine Ketones Urine Blood Urine Nitrite Urine Bilirubin Urine Urobilinogen Ur Leukocyte Esterase Influenza A (Rapid) Influenza B (Rapid) 04/09/19 04/09/19 04/10/19 19:38 21:14 01:53 WBC RBC Hgb Hct MCV MCH MCHC RDW Plt Count MPV Absolute Neuts (auto) Total Counted Neutrophils % Neutrophils % (Manual) Band Neutrophils % Lymphocytes % Lymphocytes % (Manual) Monocytes % Monocytes % (Manual) Eosinophils % Eosinophils % (Manual) Basophils % Nucleated RBC % Hypochromia Anisocytosis Microcytosis Macrocytosis PT with INR INR Anticoagulation Therapy Puncture Site ABG pH ABG pCO2 at Pt Temp ABG pO2 at Pt Temp ABG HCO3 ABG O2 Sat (Measured) ABG O2 Content ABG Base Excess Henri Test Carboxyhemoglobin Methemoglobin O2 Delivery Device Oxygen Flow Rate Vent Mode Vent Rate Mechanical Rate Pressure Support Vent Sodium Potassium Chloride Carbon Dioxide Anion Gap BUN Creatinine Est GFR (CKD-EPI)AfAm Est GFR (CKD-EPI)NonAf POC Glucometer 195 Random Glucose Lactic Acid 2.3 H* Calcium Magnesium Iron TIBC Iron Saturation Unsaturated IBC Ferritin Total Bilirubin AST ALT Alkaline Phosphatase Creatine Kinase Troponin I B-Natriuretic Peptide Total Protein Albumin Urine Color Yellow Urine Appearance Clear Urine pH 5.0 Ur Specific Moro 1.010 Urine Protein Negative Urine Glucose (UA) Negative Urine Ketones Negative Urine Blood Negative Urine Nitrite Negative Urine Bilirubin Negative Urine Urobilinogen 0.2 Ur Leukocyte Esterase Negative Influenza A (Rapid) Influenza B (Rapid) 04/10/19 04/10/19 04/10/19 05:00 05:50 05:50 WBC 11.5 H RBC 3.65 Hgb 11.2 Hct 35.8 MCV 98.1 H MCH 30.6 MCHC 31.1 L RDW 21.0 H Plt Count 143 MPV 8.7 Absolute Neuts (auto) 10.8 H Total Counted 100 Neutrophils % 93.7 H Neutrophils % (Manual) 88.0 H Band Neutrophils % 3.0 Lymphocytes % 3.4 L D Lymphocytes % (Manual) 5.0 L Monocytes % 2.7 L Monocytes % (Manual) 3 L Eosinophils % 0.1 Eosinophils % (Manual) 1.0 Basophils % 0.1 Nucleated RBC % 0 Hypochromia 1+ Anisocytosis 2+ Microcytosis Macrocytosis 1+ PT with INR INR Anticoagulation Therapy No Result Required. Puncture Site Right radial ABG pH 7.33 L ABG pCO2 at Pt Temp 57.7 H ABG pO2 at Pt Temp 117 H ABG HCO3 30.1 H ABG O2 Sat (Measured) 97.7 ABG O2 Content 18.0 ABG Base Excess 3.4 H Henri Test Positive Carboxyhemoglobin Methemoglobin O2 Delivery Device No Result Required. Oxygen Flow Rate Yes Vent Mode No Result Required. Vent Rate No Result Required. Mechanical Rate No Result Required. Pressure Support Vent No Result Required. Sodium 137 Potassium 5.0 Chloride 98 Carbon Dioxide 33 H Anion Gap 6 L BUN 57.3 H Creatinine 1.0 Est GFR (CKD-EPI)AfAm 57.84 Est GFR (CKD-EPI)NonAf 49.91 POC Glucometer Random Glucose 203 H Lactic Acid Calcium 8.9 Magnesium 3.0 H Iron 27 L TIBC 363 Iron Saturation 7 L Unsaturated IBC 336 H Ferritin 114.7 Total Bilirubin 0.6 AST 22 ALT 33 Alkaline Phosphatase 289 H Creatine Kinase Troponin I B-Natriuretic Peptide Total Protein 6.2 L Albumin 3.3 L Urine Color Urine Appearance Urine pH Ur Specific Moro Urine Protein Urine Glucose (UA) Urine Ketones Urine Blood Urine Nitrite Urine Bilirubin Urine Urobilinogen Ur Leukocyte Esterase Influenza A (Rapid) Influenza B (Rapid) 04/10/19 04/10/19 06:06 11:26 WBC RBC Hgb Hct MCV MCH MCHC RDW Plt Count MPV Absolute Neuts (auto) Total Counted Neutrophils % Neutrophils % (Manual) Band Neutrophils % Lymphocytes % Lymphocytes % (Manual) Monocytes % Monocytes % (Manual) Eosinophils % Eosinophils % (Manual) Basophils % Nucleated RBC % Hypochromia Anisocytosis Microcytosis Macrocytosis PT with INR INR Anticoagulation Therapy Puncture Site ABG pH ABG pCO2 at Pt Temp ABG pO2 at Pt Temp ABG HCO3 ABG O2 Sat (Measured) ABG O2 Content ABG Base Excess Henri Test Carboxyhemoglobin Methemoglobin O2 Delivery Device Oxygen Flow Rate Vent Mode Vent Rate Mechanical Rate Pressure Support Vent Sodium Potassium Chloride Carbon Dioxide Anion Gap BUN Creatinine Est GFR (CKD-EPI)AfAm Est GFR (CKD-EPI)NonAf POC Glucometer 199 339 Random Glucose Lactic Acid Calcium Magnesium Iron TIBC Iron Saturation Unsaturated IBC Ferritin Total Bilirubin AST ALT Alkaline Phosphatase Creatine Kinase Troponin I B-Natriuretic Peptide Total Protein Albumin Urine Color Urine Appearance Urine pH Ur Specific Moro Urine Protein Urine Glucose (UA) Urine Ketones Urine Blood Urine Nitrite Urine Bilirubin Urine Urobilinogen Ur Leukocyte Esterase Influenza A (Rapid) Influenza B (Rapid) S1 S2 Irregular Lungs ronchi and crackles B/L Abd - soft, obese, NT edema++ erythema on right leg-- not warm or tender A/P CHF decompensation Afib COPD H/.O lung Ca Liver mass-->new finding per family Pneumonia ?cellulitis-- likley venous insuf -- iv antibiotics -- venous doppler ordered -- on Eliquis -- Cardiology eval -- Pulm eval noted -- IV lasix __ ct abd/.pelvis ordered -- GI eval for liver mass -- check AFP -- nebs, solumedrol Problem List - Problems (1) Liver mass Code(s): R16.0 - HEPATOMEGALY, NOT ELSEWHERE CLASSIFIED (2) Acute CHF (congestive heart failure) Code(s): I50.9 - HEART FAILURE, UNSPECIFIED (3) Acute diastolic CHF (congestive heart failure) Code(s): I50.31 - ACUTE DIASTOLIC (CONGESTIVE) HEART FAILURE (4) Acute on chronic diastolic CHF (congestive heart failure) Code(s): I50.33 - ACUTE ON CHRONIC DIASTOLIC (CONGESTIVE) HEART FAILURE (5) Acute respiratory failure with hypercapnia Code(s): J96.02 - ACUTE RESPIRATORY FAILURE WITH HYPERCAPNIA (6) Acute respiratory failure with hypoxia and hypercapnia Code(s): J96.01 - ACUTE RESPIRATORY FAILURE WITH HYPOXIA; J96.02 - ACUTE RESPIRATORY FAILURE WITH HYPERCAPNIA (7) Afib Code(s): I48.91 - UNSPECIFIED ATRIAL FIBRILLATION (8) Diabetes Code(s): E11.9 - TYPE 2 DIABETES MELLITUS WITHOUT COMPLICATIONS (9) H/O: lung cancer Code(s): Z85.118 - PERSONAL HISTORY OF MALIGNANT NEOPLASM OF BRONCHUS AND LUNG (10) Lactic acid acidosis Code(s): E87.2 - ACIDOSIS (11) Pleural effusion Code(s): J90 - PLEURAL EFFUSION, NOT ELSEWHERE CLASSIFIED
--- NOTE | 2019-04-10 16:01 | CON.CARD ---
Consult Consult Specialty:: cardiology Reason for Consultation:: AF; PVCs - History of Present Illness Chief Complaint: Pt A&Ox3; c/o dyspnea. History of Present Illness: Pt is an 88 yo woman (b. [place]), at [facility] [place], with PMHx AF, diastolic CHF, anemia, s/p lung CA, who had sudden onset SOB today; bilat leg pitting edema; she has had worsening renal dysfunction for at least the past 6 months,was on furosemide and metolazone and was recently placed on bumex and spironolactone , as per her son. - History Source History Provided By: Patient, Family Member, Medical Record Limitations to Obtaining History: No Limitations - Past Medical History Cardio/Vascular: Yes: AFIB, HTN, Hyperlipdemia Reproductive: Yes: Postmenopausal ...: No - Alcohol/Substance Use Hx Alcohol Use: No - Smoking History Smoking history: Never smoked Have you smoked in the past 12 months: No - Social History Place of : Other ([place]) Home Medications - Allergies Allergies/Adverse Reactions: Allergies Allergy/AdvReac Type Severity Reaction Status Date / Time No Known Drug Allergies Allergy Verified 04/09/19 18:24 - Home Medications Home Medications: Ambulatory Orders Apixaban [Eliquis] 2.5 mg PO BID 04/09/19 Atorvastatin Calcium 20 mg PO HS 04/09/19 Bumetanide 2 mg PO BID 04/09/19 Diltiazem [Cardizem -] 60 mg PO DAILY 04/09/19 Docusate Sodium [Colace] 300 mg PO DAILY 04/09/19 Insulin Glargine,Hum.rec.anlog [Basaglar Kwikpen U-100] 5 unit SQ HS 04/09/19 Ipratropium/Albuterol Sulfate [Iprat-Albut 0.5-3(2.5) mg/3 ml] 3 ml IH Q6H 04/09 L. Acidophilus/Pectin, [place] [Acidophilus Capsule] 1 each PO DAILY 04/09/19 Magnesium Oxide 400 mg PO BID 04/09/19 Magnesium Oxide 400 mg PO BID 04/09/19 Metoprolol Succinate 25 mg PO DAILY 04/09/19 Nut.tx.gluc.intoler,Lac-Fr,Soy [Glucerna] 237 ml PO BID 04/09/19 Polyethylene Glycol 3350 [Miralax (For Daily Use) -] 17 gm PO DAILY 04/09/19 Potassium Chloride 20 meq PO BID 04/09/19 Sitagliptin Phosphate [Januvia -] 50 mg PO DAILY 04/09/19 Spironolactone [Aldactone] 50 mg PO DAILY 04/09/19 acetaZOLAMIDE [Diamox -] 250 mg PO DAILY 04/09/19 Family Medical History Family History: Denies Review of Systems - Review of Systems Constitutional: reports: Weakness Eyes: reports: No Symptoms HENT: reports: No Symptoms Neck: reports: No Symptoms Cardiovascular: reports: Shortness of Breath Respiratory: reports: SOB Gastrointestinal: reports: No Symptoms Genitourinary: reports: No Symptoms Breasts: reports: No Symptoms Reported Musculoskeletal: reports: Muscle Weakness Integumentary: reports: No Symptoms Neurological: reports: Weakness Endocrine: reports: No Symptoms Hematology/Lymphatic: reports: No Symptoms Psychiatric: reports: Anxiety - Risk Factors Known Risk Factors: Yes: Age, Hypercholesterolemia, Hypertension, Physical Inactivity, Other (CHF; AF) Vital Signs: Vital Signs Temperature 97.3 F L 04/10/19 14:39 Pulse Rate 78 04/10/19 14:39 Respiratory Rate 22 H 04/10/19 14:39 Blood Pressure 112/52 L 04/10/19 14:39 O2 Sat by Pulse Oximetry (%) 98 04/10/19 09:00 Abnormal Lab Results 04/11/19 04/11/19 05:30 05:30 WBC 10.2 H RDW 20.7 H Absolute Neuts (auto) 9.7 H Neutrophils % 94.9 H Neutrophils % (Manual) 94.0 H Lymphocytes % 2.4 L D Lymphocytes % (Manual) 2.0 L D Monocytes % 2.7 L Sodium 134 L Chloride 94 L Carbon Dioxide 33 H Anion Gap 6 L BUN 64.8 H Random Glucose 203 H Magnesium 3.0 H Alkaline Phosphatase 260 H Albumin 3.3 L Constitutional: Yes: Anxious Eyes: Yes: WNL HENT: Yes: WNL Neck: Yes: WNL Respiratory: Yes: SOB Gastrointestinal: Yes: Soft Renal/: No: Anuria Cardiovascular: Yes: Pulse Irregular JVD: Yes Carotid Bruit: No PMI: Non-Displaced Heart Sounds: Yes: S1 (varies in intensity), S2 Murmur: Yes: Systolic Murmur, Grade 2 Musculoskeletal: Yes: Muscle Weakness Extremities: Yes: Cool Edema: No Peripheral Pulses WNL: Yes Integumentary: Yes: WNL Neurological: Yes: Alert, Oriented, Weakness Psychiatric: Yes: Alert, Oriented - Other Data Labs, Other Data: CBC, BMP 04/10/19 05:50 04/10/19 05:50 INR, PTT INR 1.55 (0.83-1.09) H 04/09/19 19:25 Troponin, BNP 04/09/19 04/09/19 19:25 19:25 Troponin I < 0.02 B-Natriuretic Peptide 4738.0 H Troponin, BNP 04/09/19 04/09/19 19:25 19:25 Troponin I < 0.02 B-Natriuretic Peptide 4738.0 H Abnormal Lab Results 04/11/19 04/11/19 05:30 05:30 WBC 10.2 H RDW 20.7 H Absolute Neuts (auto) 9.7 H Neutrophils % 94.9 H Neutrophils % (Manual) 94.0 H Lymphocytes % 2.4 L D Lymphocytes % (Manual) 2.0 L D Monocytes % 2.7 L Sodium 134 L Chloride 94 L Carbon Dioxide 33 H Anion Gap 6 L BUN 64.8 H Random Glucose 203 H Magnesium 3.0 H Alkaline Phosphatase 260 H Albumin 3.3 L Imaging - Results Chest X-ray: Image Reviewed EKG: Image Reviewed Problem List - Problems (1) Acute respiratory failure with hypoxia and hypercapnia Assessment/Plan: Pt remains in respiratory distress Large plueral effusion. F/u ECHO for LVEF, valve status. O2, steroids, bronchodilators per pumonologist. Code(s): J96.01 - ACUTE RESPIRATORY FAILURE WITH HYPOXIA; J96.02 - ACUTE RESPIRATORY FAILURE WITH HYPERCAPNIA (2) Afib Assessment/Plan: On metoprolol ER 25 mg PO daily (home list); will restart in am and stop diltiazem until LVEF known. ER notes son sayteresa has had recently been placed on Bumex and spironolactone. On furosemide IV. F/u BUn/Cr, electrolytes, daily weight, Is and Os. Code(s): I48.91 - UNSPECIFIED ATRIAL FIBRILLATION (3) Diabetes Code(s): E11.9 - TYPE 2 DIABETES MELLITUS WITHOUT COMPLICATIONS (4) H/O: lung cancer Assessment/Plan: f/u with oncology Code(s): Z85.118 - PERSONAL HISTORY OF MALIGNANT NEOPLASM OF BRONCHUS AND LUNG (5) Liver mass Assessment/Plan: r/o mets form lung CA Code(s): R16.0 - HEPATOMEGALY, NOT ELSEWHERE CLASSIFIED (6) Pleural effusion Code(s): J90 - PLEURAL EFFUSION, NOT ELSEWHERE CLASSIFIED (7) Respiratory distress Code(s): R06.03 - ACUTE RESPIRATORY DISTRESS (8) CHF (congestive heart failure) Assessment/Plan: +JVD CXR: large pleural effusion Marked bilateral LE pitting edema to knees. Plan: On furosemide; f/u BUn/Cr, electrlyes, daily wt, Is and Os. F/u ECHO for LVEF; pt was recently started on Aldactone and Bumex (?due to acute systolic CHF). Discussed pt with her son, who says she has been having leg sweling and dyspnea for the past year. She was hospitalized recently at [place], and improved with a combination of IV furosemide and metolazone; she was sent home at one point on Bumex and spironolactone. She was on both diltiazem CD 120 mg daily and metorprolol ER 50 mg daily for AF HR control. She had a stress test within the past year, and was given "permission" by her doctors to fly to [place] a few months ago. She has been told that her heart valves "leak", but a conference between [facility] and [facility] teams resulted in decision that she was not a candidate for surgical repair or replacement. Code(s): I50.9 - HEART FAILURE, UNSPECIFIED (9) Leukocytosis Code(s): D72.829 - ELEVATED WHITE BLOOD CELL COUNT, UNSPECIFIED
[2019-04-10] MEDS ORDERED: CEFEPIME HCL 1 GM VIAL (RESTRICTED TO ID) ONE (21:06)
[2019-04-10] MEDS ORDERED: DEXTROSE 5%-WATER 100 ML IVPB ONE (21:07)
[2019-04-10] MEDS ORDERED: CEFEPIME HCL/D5W 2 GM/50 ML BAG IVPB SCH (21:30)
[2019-04-10] MEDS ORDERED: VANCOMYCIN 1 GM in D5W (PRE-DOCKED) 1,000 MG/250 ML IVPB SCH (21:30)
[2019-04-10] MEDS: ATORVASTATIN CA 20 MG TABLET (FP) PO SCH (22:42)
[2019-04-10] MEDS: CEFEPIME 1 GM in DEXTROSE 5%-WATER 100 ML IVPB SCH (22:42)
[2019-04-11] MEDS: methylPREDNISolone NA SUCC 40 MG/1 ML VIAL IVPUSH SCH ×3 (01:25→22:50)
[2019-04-11] MEDS: INSULIN SLIDING SCALE (NOVOLOG) 1 VIAL SQ SCH ×5 (05:16→22:49)
[2019-04-11 06:41] LABS: HEMATOCRIT 35.6 % (32.4-45.2); HEMOGLOBIN 11.4 GM/dL (10.7-15.3); LYMPH % 2.4 % (8-40); MCH 30.7 pg (25.7-33.7); MEAN CELL VOLUME 95.8 fl (80-96); MEAN PLT VOLUME 8.8 fl (7.5-11.1); MONO % 2.7 % (3.8-10.2); NEUT % 94.9 % (42.8-82.8); PLATELET COUNT 161 K/MM3 (134-434); RBC 3.72 M/mm3 (3.60-5.2); RDW 20.7 % (11.6-15.6); WHITE BLOOD COUNT 10.2 K/mm3 (4.0-10.0)
[2019-04-11 07:04] LABS: ALBUMIN 3.3 g/dl (3.4-5.0); BILIRUBIN,TOTAL 0.6 mg/dL (0.2-1); BLOOD UREA NITROGEN 64.8 mg/dL (7-18); CALCIUM 8.8 mg/dL (8.5-10.1); POTASSIUM 4.8 mmol/L (3.5-5.1); TOT PROT 6.4 g/dl (6.4-8.2)
[2019-04-11] MEDS ORDERED: DEXTROSE 5%-WATER 100 ML IVPB ONE (08:38)
[2019-04-11] MEDS ORDERED: CEFEPIME HCL 1 GM VIAL (RESTRICTED TO ID) ONE (08:38)
--- NOTE | 2019-04-11 08:50 | CON.GI ---
Consult Consult Specialty:: GI Referred by:: Dr Jemima Keller Reason for Consultation:: Liver mass - History of Present Illness Chief Complaint: 88 y.o. F admitted from [place] with worsening CHF. Found to have abdominal mass on sonogram, not part of liver. Pt denies any abdominal pain. - History Source History Provided By: Patient, Medical Record Limitations to Obtaining History: Clinical Condition - Past Medical History Cardio/Vascular: Yes: CHF Pulmonary: Yes: Other (lung cancer) ...: No Heme/Onc: Yes: Cancer (lung cancer) - Alcohol/Substance Use Hx Alcohol Use: No - Smoking History Smoking history: Never smoked Have you smoked in the past 12 months: No Home Medications - Allergies Allergies/Adverse Reactions: Allergies Allergy/AdvReac Type Severity Reaction Status Date / Time No Known Drug Allergies Allergy Verified 04/09/19 18:24 - Home Medications Home Medications: Ambulatory Orders Apixaban [Eliquis] 2.5 mg PO BID 04/09/19 Atorvastatin Calcium 20 mg PO HS 04/09/19 Bumetanide 2 mg PO BID 04/09/19 Diltiazem [Cardizem -] 60 mg PO DAILY 04/09/19 Docusate Sodium [Colace] 300 mg PO DAILY 04/09/19 Insulin Glargine,Hum.rec.anlog [Basaglar Kwikpen U-100] 5 unit SQ HS 04/09/19 Ipratropium/Albuterol Sulfate [Iprat-Albut 0.5-3(2.5) mg/3 ml] 3 ml IH Q6H 04/09 L. Acidophilus/Pectin, [place] [Acidophilus Capsule] 1 each PO DAILY 04/09/19 Magnesium Oxide 400 mg PO BID 04/09/19 Magnesium Oxide 400 mg PO BID 04/09/19 Metoprolol Succinate 25 mg PO DAILY 04/09/19 Nut.tx.gluc.intoler,Lac-Fr,Soy [Glucerna] 237 ml PO BID 04/09/19 Polyethylene Glycol 3350 [Miralax (For Daily Use) -] 17 gm PO DAILY 04/09/19 Potassium Chloride 20 meq PO BID 04/09/19 Sitagliptin Phosphate [Januvia -] 50 mg PO DAILY 04/09/19 Spironolactone [Aldactone] 50 mg PO DAILY 04/09/19 acetaZOLAMIDE [Diamox -] 250 mg PO DAILY 04/09/19 Physical Exam-GI Vital Signs: Vital Signs Temperature 97.0 F L 04/11/19 05:00 Pulse Rate 102 H 04/11/19 05:00 Respiratory Rate 22 H 04/11/19 05:00 Blood Pressure 109/68 04/11/19 05:00 O2 Sat by Pulse Oximetry (%) 98 04/11/19 04:00 Gastrointestinal Inspection: Yes: Other (No mass or tenderness palpable.) Labs: CBC, BMP 04/11/19 05:30 04/11/19 05:30 INR, PTT INR 1.55 (0.83-1.09) H 04/09/19 19:25 Imaging - Results Cat Scan: Image Reviewed Ultrasound: Report Reviewed, Image Reviewed (CT scan, to my eye, shows a well demarcated mass in the mid abdomen, slightly to the left of midline. No liver mass.) Problem List - Problems (1) Abdominal mass, left upper quadrant Code(s): R19.02 - LEFT UPPER QUADRANT ABDOMINAL SWELLING, MASS AND LUMP Assessment/Plan LUQ mass. Unfortunately there is no oral contrast in the upper abdomen and I cannot tell if this mass is coming off the stomach or the small bowel or messentery. Will await radiologist's interpretation before deciding on workup. In patient's current condition an aggressive workup is not feasible.
[2019-04-11] MEDS: metoPROLOL SUCCINATE 25 MG TAB.SR.24H (FP) PO SCH (09:04)
[2019-04-11] MEDS: APIXABAN 2.5 MG TABLET PO SCH (09:04)
[2019-04-11] MEDS: CEFEPIME 1 GM in DEXTROSE 5%-WATER 100 ML IVPB SCH (09:06)
[2019-04-11 09:16] LABS: ANISOCYTOSIS 2+; MACROCYTOSIS 1+; PLATELET ESTIMATE DECREASED
[2019-04-11] MEDS: ALBUTEROL SO4 2.5/IPRATROPIUM 0.5 INH SOL 3 ML VIAL.NEB. NEB PRN ×3 (09:25→21:30)
[2019-04-11] MEDS: FUROSEMIDE 40 MG/4 ML INJECTABLE VIAL IVPUSH SCH (10:15)
[2019-04-11] MEDS: AZITHROMYCIN IVPB 500 MG/250 ML BAG IVPB SCH (10:15)
--- NOTE | 2019-04-11 10:29 | PN ---
Progress Note, Physician History of Present Illness: pulmonary drowsy,weak,+ congestion - Current Medication List Current Medications: Active Medications Albuterol/Ipratropium (Duoneb -) 1 amp NEB Q6H PRN PRN Reason: SHORTNESS OF BREATH Last Admin: 04/10/19 21:20 Dose: 1 amp Apixaban (Eliquis -) 2.5 mg PO BID [facility] Last Admin: 04/11/19 09:04 Dose: 2.5 mg Atorvastatin Calcium (Lipitor -) 20 mg PO HS [facility] Last Admin: 04/10/19 22:42 Dose: 20 mg Furosemide (Lasix Injection -) 40 mg IVPUSH DAILY [facility] Last Admin: 04/11/19 10:15 Dose: 40 mg Azithromycin (Zithromax 500mg Ivpb (Pre-Docked)) 500 mg in 250 mls @ 250 mls/ hr IVPB DAILY [facility] Last Admin: 04/11/19 10:15 Dose: 250 mls/hr Cefepime HCl 1 gm/ Dextrose 100 mls @ 200 mls/hr IVPB BID [facility] Last Admin: 04/11/19 09:06 Dose: 200 mls/hr Insulin Aspart (Novolog Vial Sliding Scale -) 1 vial SQ ACHS [facility]; Protocol Last Admin: 04/11/19 06:08 Dose: 2 units Methylprednisolone Sodium Succinate (Solu-Medrol -) 40 mg IVPUSH Q8H-IV [facility] Last Admin: 04/11/19 10:15 Dose: 40 mg Metoprolol Succinate (Toprol Xl -) 25 mg PO DAILY [facility] Last Admin: 04/11/19 09:04 Dose: 25 mg Vancomycin HCl (Vancomycin (Pre-Docked)) 1,000 mg IVPB DAILY [facility]; Protocol - Objective Vital Signs: Vital Signs Temperature 97.0 F L 04/11/19 05:00 Pulse Rate 102 H 04/11/19 05:00 Respiratory Rate 22 H 04/11/19 05:00 Blood Pressure 109/68 04/11/19 05:00 O2 Sat by Pulse Oximetry (%) 98 04/11/19 04:00 Constitutional: Yes: Well Nourished, Calm, Other (drowsy) Eyes: Yes: WNL HENT: Yes: WNL Neck: Yes: WNL Cardiovascular: Yes: Pulse Irregular, S1, S2 Respiratory: Yes: Rales, Rhonchi (bilateral rales/rhonchi) Gastrointestinal: Yes: Normal Bowel Sounds, Soft Extremities: Yes: WNL Edema: Yes Labs: CBC, BMP 04/11/19 05:30 04/11/19 05:30 INR, PTT INR 1.55 (0.83-1.09) H 04/09/19 19:25 Problem List - Problems (1) Acute respiratory failure with hypercapnia Code(s): J96.02 - ACUTE RESPIRATORY FAILURE WITH HYPERCAPNIA (2) Acute respiratory failure with hypoxia and hypercapnia Code(s): J96.01 - ACUTE RESPIRATORY FAILURE WITH HYPOXIA; J96.02 - ACUTE RESPIRATORY FAILURE WITH HYPERCAPNIA (3) Pleural effusion Code(s): J90 - PLEURAL EFFUSION, NOT ELSEWHERE CLASSIFIED (4) VHD (valvular heart disease) Code(s): I38 - ENDOCARDITIS, VALVE UNSPECIFIED (5) Diabetes Code(s): E11.9 - TYPE 2 DIABETES MELLITUS WITHOUT COMPLICATIONS (6) Pleural effusion Code(s): J90 - PLEURAL EFFUSION, NOT ELSEWHERE CLASSIFIED (7) Afib Code(s): I48.91 - UNSPECIFIED ATRIAL FIBRILLATION (8) H/O: lung cancer Code(s): Z85.118 - PERSONAL HISTORY OF MALIGNANT NEOPLASM OF BRONCHUS AND LUNG (9) Lactic acid acidosis Code(s): E87.2 - ACIDOSIS (10) Acute diastolic CHF (congestive heart failure) Code(s): I50.31 - ACUTE DIASTOLIC (CONGESTIVE) HEART FAILURE (11) Acute CHF (congestive heart failure) Code(s): I50.9 - HEART FAILURE, UNSPECIFIED Assessment/Plan IMP ACUTE HYPOXEMIC/HYPERCAPNEIC RESPIRATORY FAILURE ACUTE ON CHRONIC CHF VALVULAR HD H/O LUNG CA S/P RESECTION 2011 R PLEURAL EFFUSION DM HTN H/O COPD AFIB ON ELIQUIS ELEVATED LACTATE LEVEL ANEMIA PLAN DIURETICS O2 INHALED BRONCHODILATORS NIPPV NEEDED F/U ABGS F/U CHEST X-RAYS ECHO DAILY WTS TREND LACTATE THORACENTESIS IF NO IMPROVEMENT IN PLEURAL EFFUSIONS WITH DIURESIS MONITOR LYTES,RENAL FUNCTION,H+H ABX PER ID TAPER STEROIDS DR CEDEÑO Problem List - Problems (1) Acute respiratory failure with hypercapnia Code(s): J96.02 - ACUTE RESPIRATORY FAILURE WITH HYPERCAPNIA (2) Acute respiratory failure with hypoxia and hypercapnia Code(s): J96.01 - ACUTE RESPIRATORY FAILURE WITH HYPOXIA; J96.02 - ACUTE RESPIRATORY FAILURE WITH HYPERCAPNIA (3) Pleural effusion Code(s): J90 - PLEURAL EFFUSION, NOT ELSEWHERE CLASSIFIED (4) VHD (valvular heart disease) Code(s): I38 - ENDOCARDITIS, VALVE UNSPECIFIED (5) Diabetes Code(s): E11.9 - TYPE 2 DIABETES MELLITUS WITHOUT COMPLICATIONS (6) Pleural effusion Code(s): J90 - PLEURAL EFFUSION, NOT ELSEWHERE CLASSIFIED (7) Afib Code(s): I48.91 - UNSPECIFIED ATRIAL FIBRILLATION (8) H/O: lung cancer Code(s): Z85.118 - PERSONAL HISTORY OF MALIGNANT NEOPLASM OF BRONCHUS AND LUNG (9) Lactic acid acidosis Code(s): E87.2 - ACIDOSIS (10) Acute diastolic CHF (congestive heart failure) Code(s): I50.31 - ACUTE DIASTOLIC (CONGESTIVE) HEART FAILURE (11) Acute CHF (congestive heart failure) Code(s): I50.9 - HEART FAILURE, UNSPECIFIED
--- NOTE | 2019-04-11 11:20 | PN ---
Progress Note (short form) - Note Progress Note: ID consult dictated imp/reccd 88 yo female from [facility] admitted for SOB wbc [address] with bilateral effusions, consolidations cannot r/o infiltrate received vancomycin, cefepime/zithromax in ED asked to see in f/u suspect this is all chf cannot r/o underlying pneumonia treat rocephin/zithromax send urinary antigens f/u cultures chf- diuresis abdominal mass- w/u in progress Problem List - Problems (1) Acute CHF (congestive heart failure) Code(s): I50.9 - HEART FAILURE, UNSPECIFIED (2) Pneumonia Code(s): J18.9 - PNEUMONIA, UNSPECIFIED ORGANISM (3) Abdominal mass, left upper quadrant Code(s): R19.02 - LEFT UPPER QUADRANT ABDOMINAL SWELLING, MASS AND LUMP
[2019-04-11] MEDS ORDERED: methylPREDNISolone NA SUCC 40 MG/1 ML VIAL IVPUSH SCH (11:30)
[2019-04-11] MEDS ORDERED: INSULIN (NOVOLOG) ASPART 100 UNITS/ML 10ML VIAL ONE (11:33)
--- NOTE | 2019-04-11 15:39 | PN ---
Progress Note, Physician Chief Complaint: Pt A&Ox3; remains dyspneic. History of Present Illness: Pt is an 88 yo woman (radha Rivas), at rehab [facility], with PMHx AF, diastolic CHF, anemia, s/p lung CA, who had sudden onset SOB today; bilat leg pitting edema; she has known and she was recently placed on bumex and spironolactone , as per her son. - Current Medication List Current Medications: Active Medications Albuterol/Ipratropium (Duoneb -) 1 amp NEB Q6H PRN PRN Reason: SHORTNESS OF BREATH Last Admin: 04/11/19 09:25 Dose: 1 amp Atorvastatin Calcium (Lipitor -) 20 mg PO HS [facility] Last Admin: 04/10/19 22:42 Dose: 20 mg Furosemide (Lasix Injection -) 40 mg IVPUSH DAILY [facility] Last Admin: 04/11/19 10:15 Dose: 40 mg Azithromycin (Zithromax 500mg Ivpb (Pre-Docked)) 500 mg in 250 mls @ 250 mls/ hr IVPB DAILY [facility] Last Admin: 04/11/19 10:15 Dose: 250 mls/hr Ceftriaxone Sodium 1 gm/ (Dextrose) 50 mls @ 200 mls/hr IVPB DAILY [facility]; Protocol Insulin Aspart (Novolog Vial Sliding Scale -) 1 vial SQ ACHS [facility]; Protocol Last Admin: 04/11/19 11:34 Dose: 6 units Methylprednisolone Sodium Succinate (Solu-Medrol -) 40 mg IVPUSH BID [facility] Metoprolol Succinate (Toprol Xl -) 25 mg PO DAILY [facility] Last Admin: 04/11/19 09:04 Dose: 25 mg - Objective Vital Signs: Vital Signs Temperature 98.0 F 04/11/19 14:00 Pulse Rate 103 H 04/11/19 14:00 Respiratory Rate 24 H 04/11/19 09:00 Blood Pressure 125/53 L 04/11/19 14:00 O2 Sat by Pulse Oximetry (%) 100 04/11/19 09:00 Constitutional: Yes: Anxious Eyes: Yes: WNL HENT: Yes: WNL Neck: Yes: Supple Cardiovascular: Yes: S1 (varies in intensity), S2 Respiratory: Yes: Cough, Diminished, On Venti-Mask, Rales, SOB Gastrointestinal: Yes: Soft ...Rectal Exam: Yes: Deferred Genitourinary: No: Anuria Breast(s): Yes: WNL Musculoskeletal: Yes: Muscle Weakness Extremities: Yes: Cool Edema: Yes Edema: LLE: 2+, RLE: 2+ Peripheral Pulses WNL: No Peripheral Pulses: Left Doralis Pedis: 1+, Right Dorsalis Pedis: 1+ Integumentary: Yes: Erythema Neurological: Yes: Alert, Oriented, Weakness Psychiatric: Yes: Alert, Oriented, Other (anxiety) Labs: CBC, BMP 04/11/19 05:30 04/11/19 05:30 INR, PTT INR 1.55 (0.83-1.09) H 04/09/19 19:25 Abnormal Lab Results 04/11/19 04/11/19 05:30 05:30 WBC 10.2 H RDW 20.7 H Absolute Neuts (auto) 9.7 H Neutrophils % 94.9 H Neutrophils % (Manual) 94.0 H Lymphocytes % 2.4 L D Lymphocytes % (Manual) 2.0 L D Monocytes % 2.7 L Sodium 134 L Chloride 94 L Carbon Dioxide 33 H Anion Gap 6 L BUN 64.8 H Random Glucose 203 H Magnesium 3.0 H Alkaline Phosphatase 260 H Albumin 3.3 L - ....Imaging Chest X-ray: Image Reviewed Other: Image Reviewed (telemetry: AF , periods of RVR) Problem List - Problems (1) Acute respiratory failure with hypoxia and hypercapnia Assessment/Plan: Pt remains in respiratory distress, with persisent (and large right) pleural effusions. Hold apixaban; start IV heparin. For renal input into diuresis; on IV furosemde, and has been on additional agents over the past year. May require thoracentesis. Code(s): J96.01 - ACUTE RESPIRATORY FAILURE WITH HYPOXIA; J96.02 - ACUTE RESPIRATORY FAILURE WITH HYPERCAPNIA (2) Afib Assessment/Plan: On metoprolol ER 25 mg PO daily. Apixaban held, and IV heparin started in anticipation of possible thoracentesis. ER notes son saying has had recently been placed on Bumex and spironolactone. On furosemide IV; f/u with roller picker. F/u BUn/Cr, electrolytes, daily weight, Is and Os. Code(s): I48.91 - UNSPECIFIED ATRIAL FIBRILLATION (3) Diabetes Code(s): E11.9 - TYPE 2 DIABETES MELLITUS WITHOUT COMPLICATIONS (4) H/O: lung cancer Code(s): Z85.118 - PERSONAL HISTORY OF MALIGNANT NEOPLASM OF BRONCHUS AND LUNG (5) Liver mass Assessment/Plan: r/o mets form lung CA Code(s): R16.0 - HEPATOMEGALY, NOT ELSEWHERE CLASSIFIED (6) Pleural effusion Code(s): J90 - PLEURAL EFFUSION, NOT ELSEWHERE CLASSIFIED (7) Respiratory distress Code(s): R06.03 - ACUTE RESPIRATORY DISTRESS (8) CHF (congestive heart failure) Assessment/Plan: +JVD CXR: large pleural effusion Marked bilateral LE pitting edema to knees. Plan: On furosemide; f/u BUn/Cr, electrlyes, daily wt, Is and Os. F/u ECHO for LVEF; pt was recently started on Aldactone and Bumex (?due to acute systolic CHF). Discussed pt with her son, who says she has been having leg sweling and dyspnea for the past year. She was hospitalized recently at [facility], and improved with a combination of IV furosemide and metolazone; she was sent home at one point on Bumex and spironolactone. She was on both diltiazem CD 120 mg daily and metorprolol ER 50 mg daily for AF HR control. She had a stress test within the past year, and was given "permission" by her doctors to fly to [place] a few months ago. She has been told that her heart valves "leak", but a conference between [facility] and [facility] teams resulted in decision that she was not a candidate for surgical repair or replacement. Code(s): I50.9 - HEART FAILURE, UNSPECIFIED (9) Leukocytosis Code(s): D72.829 - ELEVATED WHITE BLOOD CELL COUNT, UNSPECIFIED
--- NOTE | 2019-04-11 16:33 | PN ---
Progress Note (short form) - Note Progress Note: lying in bed needing more O2 INR, PTT INR 1.55 (0.83-1.09) H 04/09/19 19:25 Vital Signs - 24 hr 04/10/19 04/10/19 04/10/19 17:02 21:00 21:24 Temperature 97.3 F L Pulse Rate 88 103 H Respiratory 20 20 Rate Blood Pressure 117/73 119/55 L O2 Sat by Pulse 100 98 Oximetry (%) 04/11/19 04/11/19 04/11/19 01:00 04:00 05:00 Temperature 98 F 97.0 F L Pulse Rate 76 102 H Respiratory 20 22 H Rate Blood Pressure 131/65 109/68 O2 Sat by Pulse 98 Oximetry (%) 04/11/19 04/11/19 09:00 14:00 Temperature 98 F 98.0 F Pulse Rate 109 H 103 H Respiratory 22 H Rate Blood Pressure 125/66 125/53 L O2 Sat by Pulse 100 Oximetry (%) Current Medications Generic Name Dose Route Start Last Admin Trade Name Freq PRN Reason Stop Dose Admin Albuterol/Ipratropium 1 amp 04/09/19 22:53 04/11/19 15:00 Duoneb - NEB 1 amp Q6H PRN Administration SHORTNESS OF BREATH Atorvastatin Calcium 20 mg 04/10/19 22:00 04/10/19 22:42 Lipitor - PO 20 mg HS [facility] Administration Furosemide 40 mg 04/10/19 10:00 04/11/19 10:15 Lasix Injection - IVPUSH 40 mg DAILY [facility] Administration Azithromycin 500 mg in 250 mls @ 250 mls/hr 04/10/19 10:00 04/11/19 10:15 Zithromax 500mg Ivpb (Pre-Docked) IVPB 250 mls/hr DAILY [facility] Administration Ceftriaxone Sodium 1 gm/ 50 mls @ 200 mls/hr 04/12/19 10:00 Dextrose IVPB DAILY [facility] Protocol Insulin Aspart 1 vial 04/10/19 07:00 04/11/19 11:34 Novolog Vial Sliding Scale - SQ 6 units ACHS [facility] Administration Protocol Methylprednisolone Sodium Succinate 40 mg 04/11/19 11:36 Solu-Medrol - IVPUSH BID [facility] Metoprolol Succinate 25 mg 04/11/19 10:00 04/11/19 09:04 Toprol Xl - PO 25 mg DAILY [facility] Administration Laboratory Results - last 24 hr 04/10/19 04/10/19 04/11/19 20:12 22:39 05:30 WBC 10.2 H RBC 3.72 Hgb 11.4 Hct 35.6 MCV 95.8 MCH 30.7 MCHC 32.0 RDW 20.7 H Plt Count 161 MPV 8.8 Absolute Neuts (auto) 9.7 H Neutrophils % 94.9 H Neutrophils % (Manual) 94.0 H Band Neutrophils % 0.0 Lymphocytes % 2.4 L D Lymphocytes % (Manual) 2.0 L D Monocytes % 2.7 L Monocytes % (Manual) 4 Eosinophils % 0.0 D Eosinophils % (Manual) 0.0 D Basophils % 0.0 Basophils % (Manual) 0.0 Myelocytes % (Man) 0 Promyelocytes % (Man) 0 Blast Cells % (Manual) 0 Nucleated RBC % 0 Metamyelocytes 0 Platelet Estimate Decreased Anisocytosis 2+ Macrocytosis 1+ Sodium Potassium Chloride Carbon Dioxide Anion Gap BUN Creatinine Est GFR (CKD-EPI)AfAm Est GFR (CKD-EPI)NonAf POC Glucometer 280 Random Glucose Calcium Magnesium Total Bilirubin AST ALT Alkaline Phosphatase Total Protein Albumin Triglycerides 49 Cholesterol 94 Total LDL Cholesterol 31 HDL Cholesterol 59 TSH 0.49 04/11/19 04/11/19 04/11/19 05:30 06:03 11:24 WBC RBC Hgb Hct MCV MCH MCHC RDW Plt Count MPV Absolute Neuts (auto) Neutrophils % Neutrophils % (Manual) Band Neutrophils % Lymphocytes % Lymphocytes % (Manual) Monocytes % Monocytes % (Manual) Eosinophils % Eosinophils % (Manual) Basophils % Basophils % (Manual) Myelocytes % (Man) Promyelocytes % (Man) Blast Cells % (Manual) Nucleated RBC % Metamyelocytes Platelet Estimate Anisocytosis Macrocytosis Sodium 134 L Potassium 4.8 Chloride 94 L Carbon Dioxide 33 H Anion Gap 6 L BUN 64.8 H Creatinine 1.0 Est GFR (CKD-EPI)AfAm 57.84 Est GFR (CKD-EPI)NonAf 49.91 POC Glucometer 209 274 Random Glucose 203 H Calcium 8.8 Magnesium 3.0 H Total Bilirubin 0.6 AST 21 ALT 33 Alkaline Phosphatase 260 H Total Protein 6.4 Albumin 3.3 L Triglycerides Cholesterol Total LDL Cholesterol HDL Cholesterol TSH JVD+ S1 S2 Irregular Lungs ronchi and crackles B/L Abd - soft, obese, NT edema++ erythema on right leg-- not warm or tender A/P CHF decompensation Afib COPD H/.O lung Ca Liver mass-->new finding per family Pneumonia ?cellulitis-- likely venous insuf -- iv antibiotics -- venous doppler negative for DVT -- on Eliquis -- Cardiology eval- spoke with Cardiology-- will need renal input with regards to diuretics- she had multiple admissions to [place] for this -- had been given Bumex, xaroxilyn before -- she may need thoracentesis if not getting better-- need to hold off Eliquis- place on heparin drip -- Pulm eval noted- repeat CXR -- IV lasix __ ct abd/.pelvis-- spoke with GI-- unsure if mass if from liver or bowel- awaiting official read -- nebs, solumedrol Problem List - Problems (1) Liver mass Code(s): R16.0 - HEPATOMEGALY, NOT ELSEWHERE CLASSIFIED (2) Acute CHF (congestive heart failure) Code(s): I50.9 - HEART FAILURE, UNSPECIFIED (3) Acute diastolic CHF (congestive heart failure) Code(s): I50.31 - ACUTE DIASTOLIC (CONGESTIVE) HEART FAILURE (4) Acute on chronic diastolic CHF (congestive heart failure) Code(s): I50.33 - ACUTE ON CHRONIC DIASTOLIC (CONGESTIVE) HEART FAILURE (5) Acute respiratory failure with hypercapnia Code(s): J96.02 - ACUTE RESPIRATORY FAILURE WITH HYPERCAPNIA (6) Acute respiratory failure with hypoxia and hypercapnia Code(s): J96.01 - ACUTE RESPIRATORY FAILURE WITH HYPOXIA; J96.02 - ACUTE RESPIRATORY FAILURE WITH HYPERCAPNIA (7) Afib Code(s): I48.91 - UNSPECIFIED ATRIAL FIBRILLATION (8) Diabetes Code(s): E11.9 - TYPE 2 DIABETES MELLITUS WITHOUT COMPLICATIONS (9) H/O: lung cancer Code(s): Z85.118 - PERSONAL HISTORY OF MALIGNANT NEOPLASM OF BRONCHUS AND LUNG (10) Lactic acid acidosis Code(s): E87.2 - ACIDOSIS (11) Pleural effusion Code(s): J90 - PLEURAL EFFUSION, NOT ELSEWHERE CLASSIFIED
[2019-04-11] MEDS ORDERED: FUROSEMIDE 40 MG/4 ML INJECTABLE VIAL ONE (17:10)
[2019-04-11] MEDS ORDERED: FUROSEMIDE 100 MG/10 ML INJECTABLE VIAL IVPB ONE (17:16)
[2019-04-11] MEDS ORDERED: METOLAZONE 2.5 MG TABLET (FP) PO ONE (17:16)
--- NOTE | 2019-04-11 17:16 | CONSULT ---
Consult Consult Specialty:: Nephrology Reason for Consultation:: volume overload - History of Present Illness Chief Complaint: shortness of breath History of Present Illness: Pt is an 88 year old female with pmhx of copd, chf, a-fib, dm, and lung cancer who presents with shortness of breath. She has had increased lower ext edema and effusions that have not responded to various po diuretics. She complains of shortness of breath. She denies chest pain. She has a [place] and is making urine. She appears fatigued and was not able to provide all history. Chart was reviewed and case was discussed with cardiology. - History Source History Provided By: Medical Record - Past Medical History Cardio/Vascular: Yes: CHF Pulmonary: Yes: Other (lung cancer) Renal/: Yes: Renal Inusuff ...: No - Alcohol/Substance Use Hx Alcohol Use: No - Smoking History Smoking history: Never smoked Have you smoked in the past 12 months: No Home Medications - Allergies Allergies/Adverse Reactions: Allergies Allergy/AdvReac Type Severity Reaction Status Date / Time No Known Drug Allergies Allergy Verified 04/09/19 18:24 - Home Medications Home Medications: Ambulatory Orders Apixaban [Eliquis] 2.5 mg PO BID 04/09/19 Atorvastatin Calcium 20 mg PO HS 04/09/19 Bumetanide 2 mg PO BID 04/09/19 Diltiazem [Cardizem -] 60 mg PO DAILY 04/09/19 Docusate Sodium [Colace] 300 mg PO DAILY 04/09/19 Insulin Glargine,Hum.rec.anlog [Basaglar Kwikpen U-100] 5 unit SQ HS 04/09/19 Ipratropium/Albuterol Sulfate [Iprat-Albut 0.5-3(2.5) mg/3 ml] 3 ml IH Q6H 04/09 L. Acidophilus/Pectin, [place] [Acidophilus Capsule] 1 each PO DAILY 04/09/19 Magnesium Oxide 400 mg PO BID 04/09/19 Magnesium Oxide 400 mg PO BID 04/09/19 Metoprolol Succinate 25 mg PO DAILY 04/09/19 Nut.tx.gluc.intoler,Lac-Fr,Soy [Glucerna] 237 ml PO BID 04/09/19 Polyethylene Glycol 3350 [Miralax (For Daily Use) -] 17 gm PO DAILY 04/09/19 Potassium Chloride 20 meq PO BID 04/09/19 Sitagliptin Phosphate [Januvia -] 50 mg PO DAILY 04/09/19 Spironolactone [Aldactone] 50 mg PO DAILY 04/09/19 acetaZOLAMIDE [Diamox -] 250 mg PO DAILY 04/09/19 Family Medical History Family History: Denies Review of Systems - Review of Systems Constitutional: reports: Malaise Eyes: reports: No Symptoms HENT: reports: No Symptoms Neck: reports: No Symptoms Cardiovascular: reports: Edema Respiratory: reports: Cough, SOB, SOB on Exertion Genitourinary: reports: No Symptoms Musculoskeletal: reports: Muscle Weakness Neurological: reports: No Symptoms Endocrine: reports: No Symptoms Hematology/Lymphatic: reports: No Symptoms Psychiatric: reports: No Symptoms Physical Exam Vital Signs: Vital Signs Temperature 98.0 F 04/11/19 14:00 Pulse Rate 103 H 04/11/19 14:00 Respiratory Rate 24 H 04/11/19 09:00 Blood Pressure 125/53 L 04/11/19 14:00 O2 Sat by Pulse Oximetry (%) 100 04/11/19 09:00 Constitutional: Yes: Calm Eyes: Yes: Conjunctiva Clear HENT: Yes: Atraumatic Neck: Yes: Supple Cardiovascular: Yes: S1, S2 Respiratory: Yes: On Nasal O2, Rhonchi Gastrointestinal: Yes: Soft Renal/: Yes: [place] Present Musculoskeletal: Yes: Muscle Weakness Edema: Yes Edema: LUE: Trace, RUE: Trace, LLE: 3+, RLE: 3+ Neurological: Yes: Oriented Labs: CBC, BMP 04/11/19 05:30 04/11/19 05:30 Laboratory Tests 04/09/19 04/09/19 04/10/19 19:25 21:14 05:50 Sodium BUN Creatinine 0.9 1.0 Urine Protein Negative Urine Blood Negative 04/11/19 05:30 Sodium 134 L BUN 64.8 H Creatinine 1.0 Urine Protein Urine Blood Imaging - Results Chest X-ray: Report Reviewed Problem List - Problems (1) Azotemia Code(s): R79.89 - OTHER SPECIFIED ABNORMAL FINDINGS OF BLOOD CHEMISTRY (2) Afib Code(s): I48.91 - UNSPECIFIED ATRIAL FIBRILLATION (3) CHF (congestive heart failure) Code(s): I50.9 - HEART FAILURE, UNSPECIFIED (4) Pleural effusion Code(s): J90 - PLEURAL EFFUSION, NOT ELSEWHERE CLASSIFIED Assessment/Plan Current Medications Generic Name Dose Route Start Last Admin Trade Name Freq PRN Reason Stop Dose Admin Albuterol/Ipratropium 1 amp 04/09/19 22:53 04/11/19 15:00 Duoneb - NEB 1 amp Q6H PRN Administration SHORTNESS OF BREATH Atorvastatin Calcium 20 mg 04/10/19 22:00 04/10/19 22:42 Lipitor - PO 20 mg HS [facility] Administration Furosemide 40 mg 04/10/19 10:00 04/11/19 10:15 Lasix Injection - IVPUSH 40 mg DAILY [facility] Administration Azithromycin 500 mg in 250 mls @ 250 mls/hr 04/10/19 10:00 04/11/19 10:15 Zithromax 500mg Ivpb (Pre-Docked) IVPB 250 mls/hr DAILY [facility] Administration Ceftriaxone Sodium 1 gm/ 50 mls @ 200 mls/hr 04/12/19 10:00 Dextrose IVPB DAILY [facility] Protocol Insulin Aspart 1 vial 04/10/19 07:00 04/11/19 11:34 Novolog Vial Sliding Scale - SQ 6 units ACHS [facility] Administration Protocol Insulin Detemir 8 units 04/11/19 22:00 Levemir Vial SQ HS [facility] Methylprednisolone Sodium Succinate 40 mg 04/11/19 11:36 Solu-Medrol - IVPUSH BID [facility] Metoprolol Succinate 25 mg 04/11/19 10:00 04/11/19 09:04 Toprol Xl - PO 25 mg DAILY [facility] Administration Impression 1. azotemia 2. fluid overload 3. chf 4. hx lung cancer 5. DM 6. a-fib 7. anemia Plan - will give 80 of lasix and a dose of metolazone - monitor urine output - steroids can contribute to elevated bun - ua neg for protein - follow echo - repeat am cxr - keep net negative
[2019-04-11] MEDS ORDERED: HEPARIN NA (PORCINE) 5,000 UNITS/ML 1ML VIAL IVPUSH PRN ×2 (18:26)
--- NOTE | 2019-04-11 21:15 | CONS ---
DATE OF CONSULTATION: DATE OF DICTATION: 04/11/2019 History was obtained mainly from the chart as the patient is a very poor historian. She was sent to the emergency room last night from [facility]. She apparently has been at [facility] several times over the last few months. She has had fluid in her lungs. She has had a pleural effusion drained twice on the right side. She has yesterday developed worsening dry cough with wheezing and respiratory distress and brought to the ER. There was no fevers or chills. There is no headache or visual changes. She was otherwise well. She has a history of CHF, COPD, atrial fibrillation, and she has a history of left lung cancer, status post left lower lobe lobectomy. Per the cardiology consult, she apparently has had a stress test in the past year and has been told that her heart valves leak and there was a decision made that she was not a candidate for surgical repair or replacement. Echo has been ordered and pending. She is awake and alert but she is a very poor historian at this time. She has no chest pain. She has no abdominal pain. Her past medical history is notable for a history of CHF, COPD, atrial fibrillation, lung cancer, type 2 diabetes. Surgical history is for left lower lobe infection. Family history is notable for a brother with dementia. SURGICAL HISTORY: She has had a right femur fracture in 2019 and a hysterectomy along with a left lower lobe lung resection. SOCIAL HISTORY: No history of cigarette, alcohol, or substance use. She is currently residing at [facility]. She has no known drug allergies. Her medications as an outpatient include apixaban, atorvastatin, Bumex, diltiazem, Colace, insulin, magnesium oxide, metoprolol, Glucerna, MiraLax, potassium, Januvia, Aldactone, and Diamox. REVIEW OF SYSTEMS: Currently she has no pain. She is awake but she is very weak. PHYSICAL EXAMINATION: Vital Signs: She has had no fever since admission. Current temperature is 97. Pulse 102. Blood pressure 109/68. Respiratory rate 22. She is saturating 98% on 2 L and she has a wet cough. General: She is a frail elderly woman in no acute distress. HEENT: Normocephalic. Her eyes are anicteric. She has dry oral mucosa. Lungs: Her lungs have bilateral rhonchi with diminished breath sounds at the bases. Heart: Irregularly irregular. Abdomen: Soft, nontender. Extremities: 2+ pitting edema. White count on admission was 14, today is 10.2, hemoglobin 11.4, platelets 161. BUN 64, creatinine 1, alkaline phosphatase 260, and urinalysis is negative. Influenza screen was negative. Blood cultures are negative after 24 hours and urine culture is negative. Results of imaging show that she has on chest CT moderate to large right effusion, small left pleural effusion with bibasilar consolidation and atelectasis. Cannot rule out underlying infiltrate. She has segmental atelectasis versus scarring, with surgical sutures in the left upper lobe, and there is a question of an intraabdominal mass. CAT scan of the abdomen and pelvis has been done and results are pending. She has had an ultrasound of the abdomen as well that shows a complex mass-like density in the mid abdomen that is measuring 5.3 x 5 cm. Chest x-ray repeated this morning shows unchanged effusion on the right and left hilar infiltrate. In summary, this is an 88-year-old woman admitted with shortness of breath, underlying heart disease, as well as lung disease, history of lung cancer with lobectomy. I suspect, given the amount of edema she has, lack of fever, this is more likely to be heart failure, cannot rule out underlying pneumonia with the elevated white count. Treat her with Rocephin and Zithromax at this time. I would send urinary antigens and follow up her cultures. She is being diuresed by heart failure. Of note, she now has an abdominal mass, for which workup is in progress and CAT scan is pending. Further recommendations to follow. She has been started on steroids as well, which are being tapered. Management per Cardiology. Further recommendations to follow. DYANA SOOD M.D. HENNA/[id number] AWILDA
[2019-04-11] MEDS ORDERED: HEPARIN SOD,PORK IN 0.45% NACL 25,000 UNIT/500 ML INFUS.BAG IVPB SCH (22:00)
[2019-04-11] MEDS: ATORVASTATIN CA 20 MG TABLET (FP) PO SCH (22:49)
[2019-04-11] MEDS: INSULIN (LEVEMIR) 100 UNITS/ML UNITS SQ SCH (22:49)
[2019-04-12] MEDS: INSULIN SLIDING SCALE (NOVOLOG) 1 VIAL SQ SCH ×6 (06:38→22:50)
[2019-04-12 06:53] LABS: BASO % 0.1 % (0-2.0); HEMATOCRIT 33.5 % (32.4-45.2); LYMPH % 2.3 % (8-40); MCHC 32.8 g/dl (32.0-36.0); MEAN CELL VOLUME 94.5 fl (80-96); MEAN PLT VOLUME 8.6 fl (7.5-11.1); MONO % 4.8 % (3.8-10.2); NEUT % 92.8 % (42.8-82.8); PLATELET COUNT 166 K/MM3 (134-434); RBC 3.54 M/mm3 (3.60-5.2); RDW 20.1 % (11.6-15.6); WHITE BLOOD COUNT 13.8 K/mm3 (4.0-10.0)
[2019-04-12 07:31] LABS: ALBUMIN 3.2 g/dl (3.4-5.0); BILIRUBIN,TOTAL 0.5 mg/dL (0.2-1); BLOOD UREA NITROGEN 74.8 mg/dL (7-18); CALCIUM 9.1 mg/dL (8.5-10.1); CREATININE 1.1 mg/dL (0.55-1.3); POTASSIUM 4.8 mmol/L (3.5-5.1); TOT PROT 6.5 g/dl (6.4-8.2)
[2019-04-12] MEDS: ALBUTEROL SO4 2.5/IPRATROPIUM 0.5 INH SOL 3 ML VIAL.NEB. NEB PRN ×3 (08:08→20:21)
[2019-04-12] MEDS ORDERED: cefTRIAXone SODIUM 1 GM VIAL ONE (08:45)
[2019-04-12] MEDS ORDERED: DEXTROSE 5%-WATER - 50 ML IVPB ONE (08:46)
[2019-04-12] MEDS: AZITHROMYCIN IVPB 500 MG/250 ML BAG IVPB SCH (09:43)
[2019-04-12] MEDS: methylPREDNISolone NA SUCC 40 MG/1 ML VIAL IVPUSH SCH ×2 (09:43→22:47)
[2019-04-12] MEDS: CEFTRIAXONE 1 GM in DEXTROSE 5%-WATER - 50 ML IVPB SCH (09:43)
[2019-04-12] MEDS: metoPROLOL SUCCINATE 25 MG TAB.SR.24H (FP) PO SCH (09:44)
[2019-04-12] MEDS: FUROSEMIDE 40 MG/4 ML INJECTABLE VIAL IVPUSH SCH (09:44)
--- NOTE | 2019-04-12 11:26 | PN ---
Progress Note (short form) - Note Progress Note: Pt seen/ examined. chart reviewed drowsy/ arousable confused son at bedside-- discussed in detail Son requests not aggressive treatment-- Dont want thoracocentesis wants heparin switched to Eliquis Wants abx d/w Rn also-- will change Also says she has good breakfast and wants to change to minced diet-- d/w Rn also Vital Signs Temp 97.0 F L 04/12/19 10:00 Pulse 100 H 04/12/19 10:00 Resp 22 H 04/12/19 10:00 BP 115/87 04/12/19 10:00 Pulse Ox 98 04/12/19 10:00 Intake & Output 04/11/19 04/11/19 04/12/19 11:59 23:59 11:59 Intake Total 400 620 250 Output Total 500 Balance -100 620 250 Weight 156 lb 12.8 oz Intake: IVPB 350 150 Oral 50 620 100 Output: Urine 500 Roth 500 Other: Voiding Method Indwelling Catheter Indwelling Catheter Indwelling Catheter Bowel Movement Yes: large soft Yes # Bowel Movements 1 Weight Measurement Method Built in [facility] Active Medications Albuterol/Ipratropium (Duoneb -) 1 amp NEB Q6H PRN PRN Reason: SHORTNESS OF BREATH Last Admin: 04/12/19 08:08 Dose: 1 amp Apixaban (Eliquis -) 2.5 mg PO BID [facility] Atorvastatin Calcium (Lipitor -) 20 mg PO HS [facility] Last Admin: 04/11/19 22:49 Dose: 20 mg Furosemide (Lasix Injection -) 40 mg IVPUSH DAILY [facility] Last Admin: 04/12/19 09:44 Dose: 40 mg Azithromycin (Zithromax 500mg Ivpb (Pre-Docked)) 500 mg in 250 mls @ 250 mls/ hr IVPB DAILY [facility] Last Admin: 04/12/19 09:43 Dose: 250 mls/hr Ceftriaxone Sodium 1 gm/ (Dextrose) 50 mls @ 200 mls/hr IVPB DAILY [facility]; Protocol Last Admin: 04/12/19 09:43 Dose: 200 mls/hr Insulin Aspart (Novolog Vial Sliding Scale -) 1 vial SQ ACHS [facility]; Protocol Last Admin: 04/12/19 09:09 Dose: 4 units Insulin Detemir (Levemir Vial) 8 units SQ HS [facility] Last Admin: 04/11/19 22:49 Dose: 8 units Methylprednisolone Sodium Succinate (Solu-Medrol -) 40 mg IVPUSH BID [facility] Last Admin: 04/12/19 09:43 Dose: 40 mg Metoprolol Succinate (Toprol Xl -) 25 mg PO DAILY [facility] Last Admin: 04/12/19 09:44 Dose: 25 mg CBC, BMP 04/12/19 05:50 04/12/19 05:50 Abnormal Lab Results 04/12/19 04/12/19 04/12/19 05:50 05:50 05:50 WBC 13.8 H RBC 3.54 L RDW 20.1 H Absolute Neuts (auto) 12.8 H Neutrophils % 92.8 H Lymphocytes % 2.3 L PTT (Actin FS) 105.6 H Sodium 135 L Chloride 96 L BUN 74.8 H Random Glucose 131 H Alkaline Phosphatase 287 H Albumin 3.2 L cxr -- noted Physical Exam. S1 S2 Irregular Lungs -Diminished at bases Abd - soft, edema++ erythema on right leg-- not warm or tender Drowsy/ arousable non focal A/P CHF decompensation Afib COPD H/.O lung Ca Liver mass-->new finding per family Pneumonia Pleural Effusion Plan -- iv antibiotics -- venous doppler negative for DVT -- on Eliquis-- switch back -- -- IV lasix - condition gaurded - will follow - check ammonia level -pt is dnr/di Problem List - Problems (1) Liver mass Code(s): R16.0 - HEPATOMEGALY, NOT ELSEWHERE CLASSIFIED (2) Acute CHF (congestive heart failure) Code(s): I50.9 - HEART FAILURE, UNSPECIFIED (3) Acute diastolic CHF (congestive heart failure) Code(s): I50.31 - ACUTE DIASTOLIC (CONGESTIVE) HEART FAILURE (4) Acute on chronic diastolic CHF (congestive heart failure) Code(s): I50.33 - ACUTE ON CHRONIC DIASTOLIC (CONGESTIVE) HEART FAILURE (5) Acute respiratory failure with hypercapnia Code(s): J96.02 - ACUTE RESPIRATORY FAILURE WITH HYPERCAPNIA (6) Acute respiratory failure with hypoxia and hypercapnia Code(s): J96.01 - ACUTE RESPIRATORY FAILURE WITH HYPOXIA; J96.02 - ACUTE RESPIRATORY FAILURE WITH HYPERCAPNIA (7) Afib Code(s): I48.91 - UNSPECIFIED ATRIAL FIBRILLATION (8) Diabetes Code(s): E11.9 - TYPE 2 DIABETES MELLITUS WITHOUT COMPLICATIONS (9) H/O: lung cancer Code(s): Z85.118 - PERSONAL HISTORY OF MALIGNANT NEOPLASM OF BRONCHUS AND LUNG (10) Lactic acid acidosis Code(s): E87.2 - ACIDOSIS (11) Pleural effusion Code(s): J90 - PLEURAL EFFUSION, NOT ELSEWHERE CLASSIFIED
[2019-04-12 11:40] LABS: ANISOCYTOSIS 1+; MACROCYTOSIS 1+; PLATELET ESTIMATE ADEQUATE
--- NOTE | 2019-04-12 12:17 | PN ---
Progress Note, Physician Chief Complaint: Events noted Poorly responsive History of Present Illness: Patient was seen and examined. Chart was reviewed Spoke with family (son and daughter in law) by bedside regarding current clinical status. Family understands poor prognosis and does not want any heroic measures. Refuses thoracentesis that was recommended previously. They are reluctant about blood draws also. Given additional diuretics by Renal service and appear to have had some response. - Current Medication List Current Medications: Active Medications Albuterol/Ipratropium (Duoneb -) 1 amp NEB Q6H PRN PRN Reason: SHORTNESS OF BREATH Last Admin: 04/12/19 11:23 Dose: 1 amp Apixaban (Eliquis -) 2.5 mg PO BID [facility] Atorvastatin Calcium (Lipitor -) 20 mg PO HS [facility] Last Admin: 04/11/19 22:49 Dose: 20 mg Furosemide (Lasix Injection -) 40 mg IVPUSH DAILY [facility] Last Admin: 04/12/19 09:44 Dose: 40 mg Azithromycin (Zithromax 500mg Ivpb (Pre-Docked)) 500 mg in 250 mls @ 250 mls/ hr IVPB DAILY [facility] Last Admin: 04/12/19 09:43 Dose: 250 mls/hr Ceftriaxone Sodium 1 gm/ (Dextrose) 50 mls @ 200 mls/hr IVPB DAILY [facility]; Protocol Last Admin: 04/12/19 09:43 Dose: 200 mls/hr Insulin Aspart (Novolog Vial Sliding Scale -) 1 vial SQ ACHS [facility]; Protocol Last Admin: 04/12/19 11:35 Dose: 2 units Insulin Detemir (Levemir Vial) 8 units SQ HS [facility] Last Admin: 04/11/19 22:49 Dose: 8 units Methylprednisolone Sodium Succinate (Solu-Medrol -) 40 mg IVPUSH BID [facility] Last Admin: 04/12/19 09:43 Dose: 40 mg Metoprolol Succinate (Toprol Xl -) 25 mg PO DAILY [facility] Last Admin: 04/12/19 09:44 Dose: 25 mg - Objective Vital Signs: Vital Signs Temperature 97.0 F L 04/12/19 10:00 Pulse Rate 100 H 04/12/19 10:00 Respiratory Rate 22 H 04/12/19 10:00 Blood Pressure 115/87 04/12/19 10:00 O2 Sat by Pulse Oximetry (%) 99 04/12/19 11:22 Neck: Yes: Supple Cardiovascular: Yes: Regular Rate and Rhythm, S1, S2 Respiratory: Yes: Diminished Gastrointestinal: Yes: Soft. No: Tenderness Edema: Yes Edema: LLE: 1+, RLE: 1+ Labs: CBC, BMP 04/12/19 05:50 04/12/19 05:50 Problem List - Problems (1) Abdominal mass, left upper quadrant Code(s): R19.02 - LEFT UPPER QUADRANT ABDOMINAL SWELLING, MASS AND LUMP (2) Acute CHF (congestive heart failure) Code(s): I50.9 - HEART FAILURE, UNSPECIFIED (3) Acute diastolic CHF (congestive heart failure) Code(s): I50.31 - ACUTE DIASTOLIC (CONGESTIVE) HEART FAILURE (4) Acute respiratory failure with hypercapnia Code(s): J96.02 - ACUTE RESPIRATORY FAILURE WITH HYPERCAPNIA (5) Afib Code(s): I48.91 - UNSPECIFIED ATRIAL FIBRILLATION (6) Azotemia Code(s): R79.89 - OTHER SPECIFIED ABNORMAL FINDINGS OF BLOOD CHEMISTRY (7) CHF (congestive heart failure) Code(s): I50.9 - HEART FAILURE, UNSPECIFIED (8) Diabetes Code(s): E11.9 - TYPE 2 DIABETES MELLITUS WITHOUT COMPLICATIONS (9) H/O: lung cancer Code(s): Z85.118 - PERSONAL HISTORY OF MALIGNANT NEOPLASM OF BRONCHUS AND LUNG (10) Pleural effusion Code(s): J90 - PLEURAL EFFUSION, NOT ELSEWHERE CLASSIFIED (11) Respiratory distress Code(s): R06.03 - ACUTE RESPIRATORY DISTRESS Assessment/Plan 1. Acute respiratory failure with hypoxia and hypercapnia 2. AF 3. Diabetes Mellitus 4. Lung CA now with abdominal mass ? metastasis 5. Large pleural effusion PLAN: 1. Continue Eliquis 2.5 mg BID for now 2. Continue Metoprolol ER 25 mg QD as tolerated 3. Continue Atorvastatin 20 mg QHS as for now 4. IV diuretics +/- Metolazone as needed and monitor I/Os, renal function and electrolytes 5. Antibiotics 6. Continue supportive care Patient is DNR/DNI. Family refuses thoracentesis and wishes conservative measures and palliative care Prognosis: poor Prashanth Quick Md
[2019-04-12] MEDS ORDERED: FUROSEMIDE 40 MG/4 ML INJECTABLE VIAL IVPUSH ONE (12:24)
[2019-04-12] MEDS ORDERED: METOLAZONE 5 MG TABLET PO ONE (12:24)
--- NOTE | 2019-04-12 12:24 | PN ---
Progress Note, Physician History of Present Illness: Pt seen and examined at bedside. she feels that her breathing is a little better. - Current Medication List Current Medications: Active Medications Albuterol/Ipratropium (Duoneb -) 1 amp NEB Q6H PRN PRN Reason: SHORTNESS OF BREATH Last Admin: 04/12/19 11:23 Dose: 1 amp Apixaban (Eliquis -) 2.5 mg PO BID [facility] Atorvastatin Calcium (Lipitor -) 20 mg PO HS [facility] Last Admin: 04/11/19 22:49 Dose: 20 mg Furosemide (Lasix Injection -) 40 mg IVPUSH DAILY [facility] Last Admin: 04/12/19 09:44 Dose: 40 mg Azithromycin (Zithromax 500mg Ivpb (Pre-Docked)) 500 mg in 250 mls @ 250 mls/ hr IVPB DAILY [facility] Last Admin: 04/12/19 09:43 Dose: 250 mls/hr Ceftriaxone Sodium 1 gm/ (Dextrose) 50 mls @ 200 mls/hr IVPB DAILY [facility]; Protocol Last Admin: 04/12/19 09:43 Dose: 200 mls/hr Insulin Aspart (Novolog Vial Sliding Scale -) 1 vial SQ ACHS [facility]; Protocol Last Admin: 04/12/19 11:35 Dose: 2 units Insulin Detemir (Levemir Vial) 8 units SQ HS [facility] Last Admin: 04/11/19 22:49 Dose: 8 units Methylprednisolone Sodium Succinate (Solu-Medrol -) 40 mg IVPUSH BID [facility] Last Admin: 04/12/19 09:43 Dose: 40 mg Metoprolol Succinate (Toprol Xl -) 25 mg PO DAILY [facility] Last Admin: 04/12/19 09:44 Dose: 25 mg - Objective Vital Signs: Vital Signs Temperature 97.0 F L 04/12/19 10:00 Pulse Rate 100 H 04/12/19 10:00 Respiratory Rate 22 H 04/12/19 10:00 Blood Pressure 115/87 04/12/19 10:00 O2 Sat by Pulse Oximetry (%) 99 04/12/19 11:22 Constitutional: Yes: Calm Eyes: Yes: Conjunctiva Clear HENT: Yes: Atraumatic Neck: Yes: Supple Cardiovascular: Yes: S1, S2 Respiratory: Yes: On Nasal O2, Rhonchi Gastrointestinal: Yes: Soft Genitourinary: Yes: WNL Musculoskeletal: Yes: WNL Edema: Yes Neurological: Yes: Confusion Psychiatric: Yes: Oriented Labs: CBC, BMP 04/12/19 05:50 04/12/19 05:50 INR, PTT INR 1.55 (0.83-1.09) H 04/09/19 19:25 Problem List - Problems (1) Azotemia Code(s): R79.89 - OTHER SPECIFIED ABNORMAL FINDINGS OF BLOOD CHEMISTRY (2) Afib Code(s): I48.91 - UNSPECIFIED ATRIAL FIBRILLATION (3) CHF (congestive heart failure) Code(s): I50.9 - HEART FAILURE, UNSPECIFIED (4) Pleural effusion Code(s): J90 - PLEURAL EFFUSION, NOT ELSEWHERE CLASSIFIED Assessment/Plan Current Medications Generic Name Dose Route Start Last Admin Trade Name Freq PRN Reason Stop Dose Admin Albuterol/Ipratropium 1 amp 04/09/19 22:53 04/12/19 11:23 Duoneb - NEB 1 amp Q6H PRN Administration SHORTNESS OF BREATH Apixaban 2.5 mg 04/12/19 22:00 Eliquis - PO BID [facility] Atorvastatin Calcium 20 mg 04/10/19 22:00 04/11/19 22:49 Lipitor - PO 20 mg HS [facility] Administration Furosemide 40 mg 04/10/19 10:00 04/12/19 09:44 Lasix Injection - IVPUSH 40 mg DAILY [facility] Administration Azithromycin 500 mg in 250 mls @ 250 mls/hr 04/10/19 10:00 04/12/19 09:43 Zithromax 500mg Ivpb (Pre-Docked) IVPB 250 mls/hr DAILY [facility] Administration Ceftriaxone Sodium 1 gm/ 50 mls @ 200 mls/hr 04/12/19 10:00 04/12/19 09:43 Dextrose IVPB 200 mls/hr DAILY [facility] Administration Protocol Insulin Aspart 1 vial 04/10/19 07:00 04/12/19 11:35 Novolog Vial Sliding Scale - SQ 2 units ACHS [facility] Administration Protocol Insulin Detemir 8 units 04/11/19 22:00 04/11/19 22:49 Levemir Vial SQ 8 units HS [facility] Administration Methylprednisolone Sodium Succinate 40 mg 04/11/19 11:36 04/12/19 09:43 Solu-Medrol - IVPUSH 40 mg BID [facility] Administration Metoprolol Succinate 25 mg 04/11/19 10:00 04/12/19 09:44 Toprol Xl - PO 25 mg DAILY [facility] Administration Impression 1. azotemia 2. fluid overload 3. chf 4. hx lung cancer 5. DM 6. a-fib 7. anemia Plan - volume status is improving - will give another dose of lasix and metolazone - steroids can contribute to elevated bun - ua neg for protein - follow echo - cardio follow up - keep net negative
--- NOTE | 2019-04-12 12:33 | PN ---
Progress Note (short form) - Note Progress Note: GI follow up CT report looks like gastric mass Discussed in detail with son and [id number] at the bedside Even if mass is malignant, they would not pursue surgery or chemotherapy given her irreversible other medical conditions They are requesting a palliative care consult for pt last days-weeks Please call us back if we can be of service
--- NOTE | 2019-04-12 12:47 | PN ---
Progress Note (short form) - Note Progress Note: doing poorly now diagnosis of abdominal mass son and daughter in law at bedside Vital Signs Period Temp Pulse Resp BP Sys/Mason Pulse Ox Last 24 Hr 97.0 F-98.0 F 97-114 20-22 115-138/53-87 98-100 cor-rrr lungs decreased bs at bases abd soft, nt ext +edema CBC, BMP 04/12/19 05:50 04/12/19 05:50 Microbiology 04/11/19 15:45 Urine For Antigen Detection Legionella Antigen - Final 04/11/19 15:45 Urine For Antigen Detection Streptococcus pneumoniae Antigen (M - Final 04/10/19 05:50 Blood - Peripheral Venous Blood Culture - Preliminary NO GROWTH OBTAINED AFTER 48 HOURS, INCUBATION TO CONTINUE FOR 3 DAYS. 04/10/19 05:50 Blood - Peripheral Venous Blood Culture - Preliminary NO GROWTH OBTAINED AFTER 48 HOURS, INCUBATION TO CONTINUE FOR 3 DAYS. 04/09/19 21:14 Urine - Urine Clean Catch Urine Culture - Final NO GROWTH OBTAINED Current Medications Albuterol/Ipratropium (Duoneb -) 1 amp NEB Q6H PRN PRN Reason: SHORTNESS OF BREATH Last Admin: 04/12/19 11:23 Dose: 1 amp Apixaban (Eliquis -) 2.5 mg PO BID [facility] Atorvastatin Calcium (Lipitor -) 20 mg PO HS [facility] Last Admin: 04/11/19 22:49 Dose: 20 mg Furosemide (Lasix Injection -) 80 mg IVPUSH DAILY [facility] Azithromycin (Zithromax 500mg Ivpb (Pre-Docked)) 500 mg in 250 mls @ 250 mls/ hr IVPB DAILY [facility] Last Admin: 04/12/19 09:43 Dose: 250 mls/hr Ceftriaxone Sodium 1 gm/ (Dextrose) 50 mls @ 200 mls/hr IVPB DAILY [facility]; Protocol Last Admin: 04/12/19 09:43 Dose: 200 mls/hr Insulin Aspart (Novolog Vial Sliding Scale -) 1 vial SQ ACHS [facility]; Protocol Last Admin: 04/12/19 11:35 Dose: 2 units Insulin Detemir (Levemir Vial) 8 units SQ HS [facility] Last Admin: 04/11/19 22:49 Dose: 8 units Methylprednisolone Sodium Succinate (Solu-Medrol -) 40 mg IVPUSH BID [facility] Last Admin: 04/12/19 09:43 Dose: 40 mg Metoprolol Succinate (Toprol Xl -) 25 mg PO DAILY [facility] Last Admin: 04/12/19 09:44 Dose: 25 mg a/p son is declining labs, requesting palliative care- wishes to continue antibioitics at this time suspect this is all chf cannot r/o underlying pneumonia d/c zithromax, legionella antigen is negative continue rocephin for now chf- diuresis abdominal mass-no further w/u planned d/w dr durham
--- NOTE | 2019-04-12 14:14 | PN ---
Progress Note (short form) - Note Progress Note: PULMONARY Lethargic, no fevers recorded. Vital Signs Period Temp Pulse Resp BP Sys/Mason Pulse Ox Last 24 Hr 97.0 F-97.8 F 97-114 20-22 115-138/70-87 98-100 Gen: NAD at rest Heart: RRR Lung: decreased breath sounds at the bases Abd: soft, nontender Ext: + edema CBC, BMP 04/12/19 05:50 04/12/19 05:50 Active Medications Albuterol/Ipratropium (Duoneb -) 1 amp NEB Q6H PRN PRN Reason: SHORTNESS OF BREATH Last Admin: 04/12/19 11:23 Dose: 1 amp Apixaban (Eliquis -) 2.5 mg PO BID [facility] Atorvastatin Calcium (Lipitor -) 20 mg PO HS [facility] Last Admin: 04/11/19 22:49 Dose: 20 mg Furosemide (Lasix Injection -) 80 mg IVPUSH DAILY [facility] Ceftriaxone Sodium 1 gm/ (Dextrose) 50 mls @ 200 mls/hr IVPB DAILY [facility]; Protocol Last Admin: 04/12/19 09:43 Dose: 200 mls/hr Insulin Aspart (Novolog Vial Sliding Scale -) 1 vial SQ ACHS [facility]; Protocol Last Admin: 04/12/19 11:35 Dose: 2 units Insulin Detemir (Levemir Vial) 8 units SQ HS [facility] Last Admin: 04/11/19 22:49 Dose: 8 units Methylprednisolone Sodium Succinate (Solu-Medrol -) 40 mg IVPUSH BID [facility] Last Admin: 04/12/19 09:43 Dose: 40 mg Metoprolol Succinate (Toprol Xl -) 25 mg PO DAILY [facility] Last Admin: 04/12/19 09:44 Dose: 25 mg A/P Acute Hypoxic and Hypercapneic Respiratory Failure Acute on Chronic CHF Right Pleural Effusion h/o Lung Ca COPD Atrial Fibrillation HTN DM Anemia - continue lasix - monitor urine output, creatinine - O2 to keep SpO2 >90% - aspiration precautions - family considering palliative measures
[2019-04-12] MEDS ORDERED: PT OWN MED DRAWER 7, Y5N ONE (15:00)
[2019-04-12] MEDS: ATORVASTATIN CA 20 MG TABLET (FP) PO SCH (22:47)
[2019-04-12] MEDS: APIXABAN 2.5 MG TABLET PO SCH (22:47)
[2019-04-12] MEDS: INSULIN (LEVEMIR) 100 UNITS/ML UNITS SQ SCH (22:49)
[2019-04-13 04:06] LABS: CARCINOEMBRYONIC ANTIGEN 14.4 ng/mL (0.0-4.7)
[2019-04-13 06:50] LABS: HEMATOCRIT 35.2 % (32.4-45.2); HEMOGLOBIN 11.3 GM/dL (10.7-15.3); MCH 31.1 pg (25.7-33.7); MCHC 32.2 g/dl (32.0-36.0); MEAN CELL VOLUME 96.6 fl (80-96); MEAN PLT VOLUME 8.8 fl (7.5-11.1); PLATELET COUNT 147 K/MM3 (134-434); RBC 3.65 M/mm3 (3.60-5.2); RDW 20.1 % (11.6-15.6); WHITE BLOOD COUNT 13.5 K/mm3 (4.0-10.0)
[2019-04-13] MEDS: INSULIN SLIDING SCALE (NOVOLOG) 1 VIAL SQ SCH ×4 (07:04→23:03)
--- NOTE | 2019-04-13 07:26 | PN ---
Progress Note (short form) - Note Progress Note: Chief Complaint: Events noted, notes reviewed, Patient appears to be in mild to moderate respiratory distress, nonverbal, DNR/DNI/hospice care initiated History of Present Illness: Seen and examined on telemetry. Events noted, notes reviewed, Patient appears to be in mild to moderate respiratory distress, nonverbal, DNR/DNI/hospice care initiated - Current Medication List Current Medications Albuterol/Ipratropium (Duoneb -) 1 amp NEB Q6H PRN PRN Reason: SHORTNESS OF BREATH Last Admin: 04/12/19 20:21 Dose: 1 amp Apixaban (Eliquis -) 2.5 mg PO BID [facility] Last Admin: 04/12/19 22:47 Dose: 2.5 mg Atorvastatin Calcium (Lipitor -) 20 mg PO HS [facility] Last Admin: 04/12/19 22:47 Dose: 20 mg Furosemide (Lasix Injection -) 80 mg IVPUSH DAILY [facility] Ceftriaxone Sodium 1 gm/ (Dextrose) 50 mls @ 200 mls/hr IVPB DAILY [facility]; Protocol Last Admin: 04/12/19 09:43 Dose: 200 mls/hr Insulin Aspart (Novolog Vial Sliding Scale -) 1 vial SQ ACHS [facility]; Protocol Last Admin: 04/13/19 07:04 Dose: 2 units Insulin Detemir (Levemir Vial) 8 units SQ HS [facility] Last Admin: 04/12/19 22:49 Dose: 8 units Methylprednisolone Sodium Succinate (Solu-Medrol -) 40 mg IVPUSH BID [facility] Last Admin: 04/12/19 22:47 Dose: 40 mg Metoprolol Succinate (Toprol Xl -) 25 mg PO DAILY [facility] Last Admin: 04/12/19 09:44 Dose: 25 mg Review of Systems Unable to obtain - Objective Vital Signs: Last Vital Signs Temp Pulse Resp BP Pulse Ox 97.0 F L 88 20 131/83 100 04/13/19 06:00 04/13/19 06:00 04/13/19 06:00 04/13/19 06:00 04/12/19 22:00 Intake & Output 04/10/19 04/11/19 04/12/19 04/13/19 23:59 23:59 23:59 23:59 Intake Total 210 1020 590 Output Total 684 833 6892 Balance -190 520 -610 Weight 154 lb 8 oz 156 lb 12.8 oz Neck: Supple Negative JVD No Bruit Respiratory: Scattered Rhonchi Bilaterally Cardiovascular: S1 S2 Irregularly Irregular Gastrointestinal: Soft Benign Normal Bowel Sounds Ext: Edema Labs: CBC, BMP 04/13/19 06:25 Hepatic Panel Total Bilirubin 0.5 mg/dL (0.2-1) 04/12/19 05:50 AST 34 U/L (15-37) 04/12/19 05:50 ALT 46 U/L (13-61) 04/12/19 05:50 Alkaline Phosphatase 287 U/L (45-117) H 04/12/19 05:50 Albumin 3.2 g/dl (3.4-5.0) L 04/12/19 05:50 INR, PTT INR 1.55 (0.83-1.09) H 04/09/19 19:25 ABG Results ABG pH 7.33 (7.35-7.45) L 04/10/19 05:00 ABG pCO2 at Pt Temp 57.7 mmHg (35-45) H 04/10/19 05:00 ABG pO2 at Pt Temp 117 mmHg (80-100) H 04/10/19 05:00 ABG HCO3 30.1 mmol/L (22-27) H 04/10/19 05:00 ABG O2 Sat (Measured) 97.7 % (95-98) 04/10/19 05:00 ABG O2 Content 18.0 % vol 04/10/19 05:00 ABG Base Excess 3.4 meq/l (-2-2) H 04/10/19 05:00 Assessment/Plan ASSESSMENT: 1. Acute respiratory failure with hypoxia and hypercapnia 2. Coronary artery disease angina pectoris 3. Diastolic left ventricular dysfunction with chronic class I-II [employer] classification left ventricular failure 4. Persistent atrial fibrillation currently on anticoagulation therapy, [id number] score of 5 5. Hypertension 6. Diabetes Mellitus 7. Lung CA with probable metastatic disease 8. Large pleural effusion, malignant effusion versus related to the above-noted congestive heart failure PLAN: 1. Continue anticoagulation with DOAC's/Eliquis 2. Continue Toprol-XL, hemodynamics permitting 3. Continue Lipitor 4. Continue Lasix intravenously with close monitoring of renal function 5. Overall poor prognosis considering the above-noted co-morbidities, patient initiated on hospice care Nile Ott M.D.
[2019-04-13 07:31] LABS: ALBUMIN 3.1 g/dl (3.4-5.0); BILIRUBIN,TOTAL 0.6 mg/dL (0.2-1); BLOOD UREA NITROGEN 84.4 mg/dL (7-18); CALCIUM 8.6 mg/dL (8.5-10.1); CREATININE 1.1 mg/dL (0.55-1.3); POTASSIUM 4.5 mmol/L (3.5-5.1); TOT PROT 6.4 g/dl (6.4-8.2)
[2019-04-13] MEDS ORDERED: DEXTROSE 5%-WATER - 50 ML IVPB ONE (08:59)
[2019-04-13] MEDS ORDERED: cefTRIAXone SODIUM 1 GM VIAL ONE (08:59)
[2019-04-13] MEDS: methylPREDNISolone NA SUCC 40 MG/1 ML VIAL IVPUSH SCH ×2 (10:10→22:53)
[2019-04-13] MEDS: CEFTRIAXONE 1 GM in DEXTROSE 5%-WATER - 50 ML IVPB SCH ×2 (10:10→10:11)
[2019-04-13] MEDS: APIXABAN 2.5 MG TABLET PO SCH ×2 (10:11→22:43)
[2019-04-13] MEDS: FUROSEMIDE 40 MG/4 ML INJECTABLE VIAL IVPUSH SCH (10:11)
[2019-04-13] MEDS: metoPROLOL SUCCINATE 25 MG TAB.SR.24H (FP) PO SCH (10:12)
--- NOTE | 2019-04-13 12:50 | PN ---
Progress Note (short form) - Note Progress Note: PULMONARY Waxing/waning mental status. Vital Signs Period Temp Pulse Resp BP Sys/Mason Pulse Ox Last 24 Hr 97.0 F-97.4 F 79-126 20-21 102-153/60-91 99-100 Gen: NAD at rest Heart: RRR Lung: scattered rhonchi Abd: soft, nontender Ext: + edema CBC, BMP 04/13/19 06:25 04/13/19 06:25 Active Medications Albuterol/Ipratropium (Duoneb -) 1 amp NEB Q6H PRN PRN Reason: SHORTNESS OF BREATH Last Admin: 04/12/19 20:21 Dose: 1 amp Apixaban (Eliquis -) 2.5 mg PO BID [facility] Last Admin: 04/13/19 10:11 Dose: 2.5 mg Atorvastatin Calcium (Lipitor -) 20 mg PO HS [facility] Last Admin: 04/12/19 22:47 Dose: 20 mg Furosemide (Lasix Injection -) 80 mg IVPUSH DAILY [facility] Last Admin: 04/13/19 10:11 Dose: 80 mg Ceftriaxone Sodium 1 gm/ (Dextrose) 50 mls @ 200 mls/hr IVPB DAILY [facility]; Protocol Last Admin: 04/13/19 10:11 Dose: 200 mls/hr Insulin Aspart (Novolog Vial Sliding Scale -) 1 vial SQ ACHS [facility]; Protocol Last Admin: 04/13/19 11:28 Dose: 2 units Insulin Detemir (Levemir Vial) 8 units SQ HS [facility] Last Admin: 04/12/19 22:49 Dose: 8 units Methylprednisolone Sodium Succinate (Solu-Medrol -) 40 mg IVPUSH BID [facility] Last Admin: 04/13/19 10:10 Dose: 40 mg Metoprolol Succinate (Toprol Xl -) 25 mg PO DAILY [facility] Last Admin: 04/13/19 10:12 Dose: 25 mg Morphine Sulfate (Morphine Sulfate) 0.5 mg IVPUSH Q4H PRN PRN Reason: PAIN LEVEL 6-10 A/P Acute Hypoxic and Hypercapneic Respiratory Failure Acute on Chronic CHF Right Pleural Effusion h/o Lung Ca COPD Atrial Fibrillation HTN DM Anemia - continue lasix - monitor urine output, creatinine - O2 to keep SpO2 >90% - aspiration precautions - for hospice placement
--- NOTE | 2019-04-13 13:06 | PN ---
Progress Note (short form) - Note Progress Note: labored breathing son at bedside not responsive Vital Signs - 24 hr 04/12/19 04/12/19 04/12/19 15:56 18:00 21:00 Temperature 97.3 F L 97.4 F L Pulse Rate 79 126 H Respiratory 20 20 20 Rate Blood Pressure 102/60 115/77 O2 Sat by Pulse 100 Oximetry (%) 04/12/19 04/13/19 04/13/19 22:00 06:00 08:35 Temperature 97.0 F L 97.0 F L 97.0 F L Pulse Rate 102 H 88 105 H Respiratory 20 20 21 H Rate Blood Pressure 153/77 131/83 O2 Sat by Pulse 99 Oximetry (%) 04/13/19 04/13/19 04/13/19 08:38 09:00 10:00 Temperature Pulse Rate Respiratory 21 H 21 H Rate Blood Pressure 120/91 120/91 O2 Sat by Pulse 100 100 Oximetry (%) Current Medications Generic Name Dose Route Start Last Admin Trade Name Freq PRN Reason Stop Dose Admin Albuterol/Ipratropium 1 amp 04/09/19 22:53 04/12/19 20:21 Duoneb - NEB 1 amp Q6H PRN Administration SHORTNESS OF BREATH Apixaban 2.5 mg 04/12/19 22:00 04/13/19 10:11 Eliquis - PO 2.5 mg BID [facility] Administration Atorvastatin Calcium 20 mg 04/10/19 22:00 04/12/19 22:47 Lipitor - PO 20 mg HS [facility] Administration Furosemide 80 mg 04/12/19 12:25 04/13/19 10:11 Lasix Injection - IVPUSH 80 mg DAILY [facility] Administration Ceftriaxone Sodium 1 gm/ 50 mls @ 200 mls/hr 04/12/19 10:00 04/13/19 10:11 Dextrose IVPB 200 mls/hr DAILY [facility] Administration Protocol Insulin Aspart 1 vial 04/10/19 07:00 04/13/19 11:28 Novolog Vial Sliding Scale - SQ 2 units ACHS [facility] Administration Protocol Insulin Detemir 8 units 04/11/19 22:00 04/12/19 22:49 Levemir Vial SQ 8 units HS [facility] Administration Methylprednisolone Sodium Succinate 40 mg 04/11/19 11:36 04/13/19 10:10 Solu-Medrol - IVPUSH 40 mg BID [facility] Administration Metoprolol Succinate 25 mg 04/11/19 10:00 04/13/19 10:12 Toprol Xl - PO 25 mg DAILY [facility] Administration Morphine Sulfate 0.5 mg 04/13/19 11:42 Morphine Sulfate IVPUSH Q4H PRN PAIN LEVEL 6-10 Laboratory Results - last 24 hr 04/10/19 04/12/19 04/12/19 17:10 16:56 22:49 WBC RBC Hgb Hct MCV MCH MCHC RDW Plt Count MPV PTT (Actin FS) Sodium Potassium Chloride Carbon Dioxide Anion Gap BUN Creatinine Est GFR (CKD-EPI)AfAm Est GFR (CKD-EPI)NonAf POC Glucometer 213 210 Random Glucose Calcium Total Bilirubin AST ALT Alkaline Phosphatase Total Protein Albumin Tumor Marker AFP 1.2 Carcinoembryonic Ag 14.4 H 04/13/19 04/13/19 04/13/19 05:59 06:25 06:25 WBC 13.5 H RBC 3.65 Hgb 11.3 Hct 35.2 MCV 96.6 H MCH 31.1 MCHC 32.2 RDW 20.1 H Plt Count 147 MPV 8.8 PTT (Actin FS) 31.0 Sodium Potassium Chloride Carbon Dioxide Anion Gap BUN Creatinine Est GFR (CKD-EPI)AfAm Est GFR (CKD-EPI)NonAf POC Glucometer 169 Random Glucose Calcium Total Bilirubin AST ALT Alkaline Phosphatase Total Protein Albumin Tumor Marker AFP Carcinoembryonic Ag 04/13/19 04/13/19 06:25 11:26 WBC RBC Hgb Hct MCV MCH MCHC RDW Plt Count MPV PTT (Actin FS) Sodium 136 Potassium 4.5 Chloride 95 L Carbon Dioxide 30 Anion Gap 10 BUN 84.4 H Creatinine 1.1 Est GFR (CKD-EPI)AfAm 51.55 Est GFR (CKD-EPI)NonAf 44.48 POC Glucometer 191 Random Glucose 155 H Calcium 8.6 Total Bilirubin 0.6 AST 38 H ALT 53 Alkaline Phosphatase 296 H Total Protein 6.4 Albumin 3.1 L Tumor Marker AFP Carcinoembryonic Ag JVD+ S1 S2 Irregular Lungs ronchi and crackles B/L Abd - soft, obese, NT edema++ A/P CHF decompensation Afib COPD H/.O lung Ca Liver mass-->new finding per family Pneumonia ?cellulitis-- likely venous insuf -- on hospice -- son agreed for iv lasix and antibiotics only -- no aggressive work up for gastric tumor -- Morphine prn -- continue with meds -- agreed for labs Problem List - Problems (1) Liver mass Code(s): R16.0 - HEPATOMEGALY, NOT ELSEWHERE CLASSIFIED (2) Acute CHF (congestive heart failure) Code(s): I50.9 - HEART FAILURE, UNSPECIFIED (3) Acute diastolic CHF (congestive heart failure) Code(s): I50.31 - ACUTE DIASTOLIC (CONGESTIVE) HEART FAILURE (4) Acute respiratory failure with hypercapnia Code(s): J96.02 - ACUTE RESPIRATORY FAILURE WITH HYPERCAPNIA (5) Acute respiratory failure with hypoxia and hypercapnia Code(s): J96.01 - ACUTE RESPIRATORY FAILURE WITH HYPOXIA; J96.02 - ACUTE RESPIRATORY FAILURE WITH HYPERCAPNIA (6) Afib Code(s): I48.91 - UNSPECIFIED ATRIAL FIBRILLATION (7) Diabetes Code(s): E11.9 - TYPE 2 DIABETES MELLITUS WITHOUT COMPLICATIONS (8) H/O: lung cancer Code(s): Z85.118 - PERSONAL HISTORY OF MALIGNANT NEOPLASM OF BRONCHUS AND LUNG (9) Lactic acid acidosis Code(s): E87.2 - ACIDOSIS (10) Pleural effusion Code(s): J90 - PLEURAL EFFUSION, NOT ELSEWHERE CLASSIFIED
[2019-04-13] MEDS ORDERED: METOLAZONE 5 MG TABLET PO ONE (14:10)
--- NOTE | 2019-04-13 14:10 | PN ---
Progress Note, Physician History of Present Illness: Pt seen and examined at bedside. She is lethargic. - Current Medication List Current Medications: Active Medications Albuterol/Ipratropium (Duoneb -) 1 amp NEB Q6H PRN PRN Reason: SHORTNESS OF BREATH Last Admin: 04/12/19 20:21 Dose: 1 amp Apixaban (Eliquis -) 2.5 mg PO BID [facility] Last Admin: 04/13/19 10:11 Dose: 2.5 mg Atorvastatin Calcium (Lipitor -) 20 mg PO HS [facility] Last Admin: 04/12/19 22:47 Dose: 20 mg Furosemide (Lasix Injection -) 80 mg IVPUSH DAILY [facility] Last Admin: 04/13/19 10:11 Dose: 80 mg Ceftriaxone Sodium 1 gm/ (Dextrose) 50 mls @ 200 mls/hr IVPB DAILY [facility]; Protocol Last Admin: 04/13/19 10:11 Dose: 200 mls/hr Insulin Aspart (Novolog Vial Sliding Scale -) 1 vial SQ ACHS [facility]; Protocol Last Admin: 04/13/19 11:28 Dose: 2 units Insulin Detemir (Levemir Vial) 8 units SQ HS [facility] Last Admin: 04/12/19 22:49 Dose: 8 units Methylprednisolone Sodium Succinate (Solu-Medrol -) 40 mg IVPUSH BID [facility] Last Admin: 04/13/19 10:10 Dose: 40 mg Metoprolol Succinate (Toprol Xl -) 25 mg PO DAILY [facility] Last Admin: 04/13/19 10:12 Dose: 25 mg Morphine Sulfate (Morphine Sulfate) 0.5 mg IVPUSH Q4H PRN PRN Reason: PAIN LEVEL 6-10 - Objective Vital Signs: Vital Signs Temperature 97.0 F L 04/13/19 13:38 Pulse Rate 97 H 04/13/19 13:38 Respiratory Rate 21 H 04/13/19 13:38 Blood Pressure 126/58 L 04/13/19 13:38 O2 Sat by Pulse Oximetry (%) 100 04/13/19 10:00 Constitutional: Yes: Calm Eyes: Yes: Conjunctiva Clear HENT: Yes: Atraumatic Cardiovascular: Yes: S1, S2 Respiratory: Yes: On Nasal O2 Gastrointestinal: Yes: Normal Bowel Sounds, Soft Genitourinary: Yes: Roth Present Edema: Yes Edema: LLE: 2+, RLE: 2+ Neurological: Yes: Confusion, Lethargy Labs: CBC, BMP 04/13/19 06:25 04/13/19 06:25 INR, PTT INR 1.55 (0.83-1.09) H 04/09/19 19:25 - ....Imaging Chest X-ray: Report Reviewed Problem List - Problems (1) Azotemia Code(s): R79.89 - OTHER SPECIFIED ABNORMAL FINDINGS OF BLOOD CHEMISTRY (2) Afib Code(s): I48.91 - UNSPECIFIED ATRIAL FIBRILLATION (3) CHF (congestive heart failure) Code(s): I50.9 - HEART FAILURE, UNSPECIFIED (4) Pleural effusion Code(s): J90 - PLEURAL EFFUSION, NOT ELSEWHERE CLASSIFIED Assessment/Plan Current Medications Generic Name Dose Route Start Last Admin Trade Name Freq PRN Reason Stop Dose Admin Albuterol/Ipratropium 1 amp 04/09/19 22:53 04/12/19 20:21 Duoneb - NEB 1 amp Q6H PRN Administration SHORTNESS OF BREATH Apixaban 2.5 mg 04/12/19 22:00 04/13/19 10:11 Eliquis - PO 2.5 mg BID [facility] Administration Atorvastatin Calcium 20 mg 04/10/19 22:00 04/12/19 22:47 Lipitor - PO 20 mg HS [facility] Administration Furosemide 80 mg 04/12/19 12:25 04/13/19 10:11 Lasix Injection - IVPUSH 80 mg DAILY [facility] Administration Ceftriaxone Sodium 1 gm/ 50 mls @ 200 mls/hr 04/12/19 10:00 04/13/19 10:11 Dextrose IVPB 200 mls/hr DAILY [facility] Administration Protocol Insulin Aspart 1 vial 04/10/19 07:00 04/13/19 11:28 Novolog Vial Sliding Scale - SQ 2 units ACHS [facility] Administration Protocol Insulin Detemir 8 units 04/11/19 22:00 04/12/19 22:49 Levemir Vial SQ 8 units HS [facility] Administration Methylprednisolone Sodium Succinate 40 mg 04/11/19 11:36 04/13/19 10:10 Solu-Medrol - IVPUSH 40 mg BID [facility] Administration Metoprolol Succinate 25 mg 04/11/19 10:00 04/13/19 10:12 Toprol Xl - PO 25 mg DAILY [facility] Administration Morphine Sulfate 0.5 mg 04/13/19 11:42 Morphine Sulfate IVPUSH Q4H PRN PAIN LEVEL 6-10 Laboratory Tests 04/13/19 06:25 Magnesium Pending Impression 1. azotemia 2. fluid overload 3. chf 4. hx lung cancer 5. DM 6. a-fib 7. anemia Plan - will give an additional lasix dose - follow mag level - discussed with cardio - will give metolazone - steroids can contribute to elevated bun - ua neg for protein - follow echo - keep net negative
[2019-04-13] MEDS: FUROSEMIDE 40 MG/4 ML INJECTABLE VIAL IVPUSH ONE (16:04)
[2019-04-13] MEDS ORDERED: INSULIN (NOVOLOG) ASPART 100 UNITS/ML 10ML VIAL ONE (16:47)
[2019-04-13] MEDS: ATORVASTATIN CA 20 MG TABLET (FP) PO SCH (22:43)
[2019-04-13] MEDS: MORPHINE SULFATE 2 MG/ML VIAL IVPUSH PRN (22:53)
[2019-04-13] MEDS: INSULIN (LEVEMIR) 100 UNITS/ML UNITS SQ SCH (23:02)
[2019-04-13] MEDS: ALBUTEROL SO4 2.5/IPRATROPIUM 0.5 INH SOL 3 ML VIAL.NEB. NEB PRN (23:06)
[2019-04-14] MEDS: INSULIN SLIDING SCALE (NOVOLOG) 1 VIAL SQ SCH ×4 (06:28→21:41)
[2019-04-14 06:32] LABS: HEMATOCRIT 35.6 % (32.4-45.2); HEMOGLOBIN 11.4 GM/dL (10.7-15.3); MCH 30.4 pg (25.7-33.7); MCHC 31.9 g/dl (32.0-36.0); MEAN CELL VOLUME 95.1 fl (80-96); MEAN PLT VOLUME 8.8 fl (7.5-11.1); PLATELET COUNT 123 K/MM3 (134-434); RBC 3.74 M/mm3 (3.60-5.2); RDW 19.6 % (11.6-15.6); WHITE BLOOD COUNT 11.2 K/mm3 (4.0-10.0)
[2019-04-14] MEDS ORDERED: DEXTROSE 5%-WATER - 50 ML IVPB ONE (10:28)
[2019-04-14] MEDS ORDERED: cefTRIAXone SODIUM 1 GM VIAL ONE (10:28)
[2019-04-14] MEDS: APIXABAN 2.5 MG TABLET PO SCH ×2 (10:40→21:39)
[2019-04-14] MEDS: FUROSEMIDE 40 MG/4 ML INJECTABLE VIAL IVPUSH SCH (10:40)
[2019-04-14] MEDS: methylPREDNISolone NA SUCC 40 MG/1 ML VIAL IVPUSH SCH ×2 (10:40→21:42)
[2019-04-14] MEDS: CEFTRIAXONE 1 GM in DEXTROSE 5%-WATER - 50 ML IVPB SCH (10:40)
[2019-04-14] MEDS: metoPROLOL SUCCINATE 25 MG TAB.SR.24H (FP) PO SCH (10:40)
--- NOTE | 2019-04-14 10:50 | PN ---
Progress Note (short form) - Note Progress Note: comfortable alert Vital Signs Period Temp Pulse Resp BP Sys/Mason Pulse Ox Last 24 Hr 96.9 F-98.1 F 97-112 20-24 103-146/48-97 96-97 cor-rrr lungs decreased bs at bases abd soft,nt ext +edema CBC, BMP 04/14/19 06:10 04/13/19 06:25 a/p palliative care options being evaluated day #5 ceftriaxone suspect this is all chf cannot r/o underlying pneumonia can switch to po ceftin to finish 7 days chf- diuresis abdominal mass-no further w/u planned please call back if needed
--- NOTE | 2019-04-14 10:56 | PN ---
Progress Note, Physician History of Present Illness: Sensorium and dyspnea improved, LE edema persists. - Current Medication List Current Medications: Active Medications Albuterol/Ipratropium (Duoneb -) 1 amp NEB Q6H PRN PRN Reason: SHORTNESS OF BREATH Last Admin: 04/13/19 23:06 Dose: 1 amp Apixaban (Eliquis -) 2.5 mg PO BID [facility] Last Admin: 04/14/19 10:40 Dose: 2.5 mg Atorvastatin Calcium (Lipitor -) 20 mg PO HS [facility] Last Admin: 04/13/19 22:43 Dose: 20 mg Furosemide (Lasix Injection -) 80 mg IVPUSH DAILY [facility] Last Admin: 04/14/19 10:40 Dose: 80 mg Ceftriaxone Sodium 1 gm/ (Dextrose) 50 mls @ 200 mls/hr IVPB DAILY [facility]; Protocol Last Admin: 04/14/19 10:40 Dose: 200 mls/hr Insulin Aspart (Novolog Vial Sliding Scale -) 1 vial SQ ACHS [facility]; Protocol Last Admin: 04/14/19 06:28 Dose: Not Given Insulin Detemir (Levemir Vial) 8 units SQ HS [facility] Last Admin: 04/13/19 23:02 Dose: 8 units Methylprednisolone Sodium Succinate (Solu-Medrol -) 40 mg IVPUSH BID [facility] Last Admin: 04/14/19 10:40 Dose: 40 mg Metoprolol Succinate (Toprol Xl -) 25 mg PO DAILY [facility] Last Admin: 04/14/19 10:40 Dose: 25 mg Morphine Sulfate (Morphine Sulfate) 0.5 mg IVPUSH Q4H PRN PRN Reason: PAIN LEVEL 6-10 Last Admin: 04/13/19 22:53 Dose: 0.5 mg - Objective Vital Signs: Vital Signs Temperature 96.9 F L 04/14/19 02:00 Pulse Rate 112 H 04/14/19 02:00 Respiratory Rate 24 H 04/14/19 02:00 Blood Pressure 131/48 L 04/14/19 02:00 O2 Sat by Pulse Oximetry (%) 97 04/13/19 22:00 Constitutional: Yes: No Distress, Calm Neck: Yes: Supple Cardiovascular: Yes: Pulse Irregular, Murmur (2/6 SM) Respiratory: Yes: Regular, Diminished, On Nasal O2 Gastrointestinal: Yes: Normal Bowel Sounds, Soft Edema: Yes Edema: LLE: 2+, RLE: 2+ Labs: CBC, BMP 04/14/19 06:10 04/13/19 06:25 INR, PTT INR 1.55 (0.83-1.09) H 04/09/19 19:25 - ....Imaging EKG: Report Reviewed (Tele: JULIO ISBELL) Problem List - Problems (1) Abdominal mass, left upper quadrant Code(s): R19.02 - LEFT UPPER QUADRANT ABDOMINAL SWELLING, MASS AND LUMP (2) Acute diastolic CHF (congestive heart failure) Code(s): I50.31 - ACUTE DIASTOLIC (CONGESTIVE) HEART FAILURE (3) Acute respiratory failure with hypoxia and hypercapnia Code(s): J96.01 - ACUTE RESPIRATORY FAILURE WITH HYPOXIA; J96.02 - ACUTE RESPIRATORY FAILURE WITH HYPERCAPNIA (4) Afib Code(s): I48.91 - UNSPECIFIED ATRIAL FIBRILLATION Qualifiers: Atrial fibrillation type: longstanding persistent Qualified Code(s): I48.11 - Longstanding persistent atrial fibrillation (5) Azotemia Code(s): R79.89 - OTHER SPECIFIED ABNORMAL FINDINGS OF BLOOD CHEMISTRY (6) Diabetes Code(s): E11.9 - TYPE 2 DIABETES MELLITUS WITHOUT COMPLICATIONS Qualifiers: Diabetes mellitus type: type 2 (7) Pleural effusion Code(s): J90 - PLEURAL EFFUSION, NOT ELSEWHERE CLASSIFIED Assessment/Plan 02/23/2019 Echo: Normal LV size with preserved LVEF 55-60%, mild septal HK, mod dilated RV, mod LAE, severe GUILLERMO, severe MR, TR, AR similar to previous 09/2018 1. Acute Hypoxic and Hypercapneic Respiratory Failure 2. Acute on Chronic diastolic CHF with Right Pleural Effusion due to valvular cardiomyopathy 3. Coronary artery disease angina pectoris 4. Persistent atrial fibrillation currently on anticoagulation therapy, [id number] score of 5 5. Hypertension 6. Diabetes Mellitus 7. H/o Lung CA with newly diagnosed gastric mass 8. COPD 9. Anemia PLAN: 1. Continue anticoagulation with DOAC's/Eliquis 2.5 bid 2. Continue Toprol-XL 25 qd, hemodynamics permitting 3. Continue Lipitor 20 qhs 4. Continue diuresis intravenously with close monitoring of diuretic response, renal function and electrolytes 5. Family declines thoracentesis, requests inpatient hospice 6. O2 to keep SpO2 >90%, BD as needed, empiric abx course, IV steroid taper
--- NOTE | 2019-04-14 11:36 | PN ---
Progress Note, Physician History of Present Illness: Pt seen and examined at bedside. She is awake and appears more comfortable today. - Current Medication List Current Medications: Active Medications Albuterol/Ipratropium (Duoneb -) 1 amp NEB Q6H PRN PRN Reason: SHORTNESS OF BREATH Last Admin: 04/13/19 23:06 Dose: 1 amp Apixaban (Eliquis -) 2.5 mg PO BID [facility] Last Admin: 04/14/19 10:40 Dose: 2.5 mg Atorvastatin Calcium (Lipitor -) 20 mg PO HS [facility] Last Admin: 04/13/19 22:43 Dose: 20 mg Furosemide (Lasix Injection -) 80 mg IVPUSH DAILY [facility] Last Admin: 04/14/19 10:40 Dose: 80 mg Ceftriaxone Sodium 1 gm/ (Dextrose) 50 mls @ 200 mls/hr IVPB DAILY [facility]; Protocol Last Admin: 04/14/19 10:40 Dose: 200 mls/hr Insulin Aspart (Novolog Vial Sliding Scale -) 1 vial SQ ACHS [facility]; Protocol Last Admin: 04/14/19 06:28 Dose: Not Given Insulin Detemir (Levemir Vial) [address] [facility] Last Admin: 04/13/19 23:02 Dose: 8 units Methylprednisolone Sodium Succinate (Solu-Medrol -) 40 mg IVPUSH BID [facility] Last Admin: 04/14/19 10:40 Dose: 40 mg Metoprolol Succinate (Toprol Xl -) 25 mg PO DAILY [facility] Last Admin: 04/14/19 10:40 Dose: 25 mg Morphine Sulfate (Morphine Sulfate) 0.5 mg IVPUSH Q4H PRN PRN Reason: PAIN LEVEL 6-10 Last Admin: 04/13/19 22:53 Dose: 0.5 mg - Objective Vital Signs: Vital Signs Temperature 96.9 F L 04/14/19 02:00 Pulse Rate 112 H 04/14/19 02:00 Respiratory Rate 24 H 04/14/19 02:00 Blood Pressure 131/48 L 04/14/19 02:00 O2 Sat by Pulse Oximetry (%) 97 04/13/19 22:00 Constitutional: Yes: Calm Eyes: Yes: Conjunctiva Clear HENT: Yes: Atraumatic Neck: Yes: Supple Cardiovascular: Yes: S1, S2 Respiratory: Yes: On Nasal O2 Gastrointestinal: Yes: Normal Bowel Sounds, Soft Genitourinary: Yes: Roth Present Musculoskeletal: Yes: WNL Edema: Yes Integumentary: Yes: Venous Stasis Changes Neurological: Yes: Oriented Labs: CBC, BMP 04/14/19 06:10 04/13/19 06:25 INR, PTT INR 1.55 (0.83-1.09) H 04/09/19 19:25 Problem List - Problems (1) Azotemia Code(s): R79.89 - OTHER SPECIFIED ABNORMAL FINDINGS OF BLOOD CHEMISTRY (2) Afib Code(s): I48.91 - UNSPECIFIED ATRIAL FIBRILLATION Qualifiers: Atrial fibrillation type: longstanding persistent Qualified Code(s): I48.11 - Longstanding persistent atrial fibrillation (3) CHF (congestive heart failure) Code(s): I50.9 - HEART FAILURE, UNSPECIFIED (4) Pleural effusion Code(s): J90 - PLEURAL EFFUSION, NOT ELSEWHERE CLASSIFIED Assessment/Plan Current Medications Generic Name Dose Route Start Last Admin Trade Name Freq PRN Reason Stop Dose Admin Albuterol/Ipratropium 1 amp 04/09/19 22:53 04/13/19 23:06 Duoneb - NEB 1 amp Q6H PRN Administration SHORTNESS OF BREATH Apixaban 2.5 mg 04/12/19 22:00 04/14/19 10:40 Eliquis - PO 2.5 mg BID [facility] Administration Atorvastatin Calcium 20 mg 04/10/19 22:00 04/13/19 22:43 Lipitor - PO 20 mg HS [facility] Administration Furosemide 80 mg 04/12/19 12:25 04/14/19 10:40 Lasix Injection - IVPUSH 80 mg DAILY [facility] Administration Ceftriaxone Sodium 1 gm/ 50 mls @ 200 mls/hr 04/12/19 10:00 04/14/19 10:40 Dextrose IVPB 200 mls/hr DAILY [facility] Administration Protocol Insulin Aspart 1 vial 04/10/19 07:00 04/14/19 06:28 Novolog Vial Sliding Scale - SQ Not Given ACHS [facility] Protocol Insulin Detemir 8 units 04/11/19 22:00 04/13/19 23:02 Levemir Vial SQ 8 units HS [facility] Administration Methylprednisolone Sodium Succinate 40 mg 04/11/19 11:36 04/14/19 10:40 Solu-Medrol - IVPUSH 40 mg BID [facility] Administration Metoprolol Succinate 25 mg 04/11/19 10:00 04/14/19 10:40 Toprol Xl - PO 25 mg DAILY [facility] Administration Morphine Sulfate 0.5 mg 04/13/19 11:42 04/13/19 22:53 Morphine Sulfate IVPUSH 0.5 mg Q4H PRN Administration PAIN LEVEL 6-10 Impression 1. azotemia 2. fluid overload 3. chf 4. hx lung cancer 5. DM 6. a-fib 7. anemia Plan - cont lasix - check labs to evaluate lytes - volume status improving - cardio follow up - steroids can contribute to elevated bun - ua neg for protein - follow echo - keep net negative
--- NOTE | 2019-04-14 11:40 | PN ---
Progress Note (short form) - Note Progress Note: awake and alert now ! no distress responding Daughter in law at bedside Vital Signs - 24 hr 04/13/19 04/13/19 04/13/19 13:38 18:00 21:00 Temperature 97.0 F L 97.5 F L Pulse Rate 97 H 100 H Respiratory 21 H 20 Rate Blood Pressure 126/58 L 146/97 O2 Sat by Pulse 96 Oximetry (%) 04/13/19 04/14/19 22:00 02:00 Temperature 98.1 F 96.9 F L Pulse Rate 106 H 112 H Respiratory 20 24 H Rate Blood Pressure 103/63 131/48 L O2 Sat by Pulse 96 Oximetry (%) Current Medications Generic Name Dose Route Start Last Admin Trade Name Freq PRN Reason Stop Dose Admin Albuterol/Ipratropium 1 amp 04/09/19 22:53 04/13/19 23:06 Duoneb - NEB 1 amp Q6H PRN Administration SHORTNESS OF BREATH Apixaban 2.5 mg 04/12/19 22:00 04/14/19 10:40 Eliquis - PO 2.5 mg BID [facility] Administration Atorvastatin Calcium 20 mg 04/10/19 22:00 04/13/19 22:43 Lipitor - PO 20 mg HS [facility] Administration Furosemide 80 mg 04/12/19 12:25 04/14/19 10:40 Lasix Injection - IVPUSH 80 mg DAILY [facility] Administration Ceftriaxone Sodium 1 gm/ 50 mls @ 200 mls/hr 04/12/19 10:00 04/14/19 10:40 Dextrose IVPB 200 mls/hr DAILY [facility] Administration Protocol Insulin Aspart 1 vial 04/10/19 07:00 04/14/19 06:28 Novolog Vial Sliding Scale - SQ Not Given ACHS [facility] Protocol Insulin Detemir 8 units 04/11/19 22:00 04/13/19 23:02 Levemir Vial SQ 8 units HS [facility] Administration Methylprednisolone Sodium Succinate 40 mg 04/11/19 11:36 04/14/19 10:40 Solu-Medrol - IVPUSH 40 mg BID [facility] Administration Metoprolol Succinate 25 mg 04/11/19 10:00 04/14/19 10:40 Toprol Xl - PO 25 mg DAILY [facility] Administration Morphine Sulfate 0.5 mg 04/13/19 11:42 04/13/19 22:53 Morphine Sulfate IVPUSH 0.5 mg Q4H PRN Administration PAIN LEVEL 6-10 Laboratory Results - last 24 hr 04/13/19 04/13/19 04/13/19 06:25 16:43 22:52 WBC RBC Hgb Hct MCV MCH MCHC RDW Plt Count MPV PTT (Actin FS) Sodium 136 Potassium 4.5 Chloride 95 L Carbon Dioxide 30 Anion Gap 10 BUN 84.4 H Creatinine 1.1 Est GFR (CKD-EPI)AfAm 51.55 Est GFR (CKD-EPI)NonAf 44.48 POC Glucometer 227 161 Random Glucose 155 H Calcium 8.6 Magnesium 3.0 H Total Bilirubin 0.6 AST 38 H ALT 53 Alkaline Phosphatase 296 H Total Protein 6.4 Albumin 3.1 L 04/14/19 04/14/19 04/14/19 06:10 06:10 06:10 WBC 11.2 H RBC 3.74 Hgb 11.4 Hct 35.6 MCV 95.1 MCH 30.4 MCHC 31.9 L RDW 19.6 H Plt Count 123 L MPV 8.8 PTT (Actin FS) 31.8 Sodium Potassium Chloride Carbon Dioxide Anion Gap BUN Creatinine Est GFR (CKD-EPI)AfAm Est GFR (CKD-EPI)NonAf POC Glucometer 151 Random Glucose Calcium Magnesium Total Bilirubin AST ALT Alkaline Phosphatase Total Protein Albumin S1 S2 Irregular Lungs ronchi and crackles B/L Abd - soft, obese, NT edema++ A/P CHF decompensation Afib COPD H/.O lung Ca gastric mass-->new finding per family Pneumonia ?cellulitis-- likely venous insuf -- on hospice -- son agreed for iv lasix and antibiotics only -- no aggressive work up for gastric tumor -- Morphine prn -- continue with meds -- family wants inpatient hospice Problem List - Problems (1) Liver mass Code(s): R16.0 - HEPATOMEGALY, NOT ELSEWHERE CLASSIFIED (2) Acute CHF (congestive heart failure) Code(s): I50.9 - HEART FAILURE, UNSPECIFIED (3) Acute diastolic CHF (congestive heart failure) Code(s): I50.31 - ACUTE DIASTOLIC (CONGESTIVE) HEART FAILURE (4) Acute respiratory failure with hypercapnia Code(s): J96.02 - ACUTE RESPIRATORY FAILURE WITH HYPERCAPNIA (5) Acute respiratory failure with hypoxia and hypercapnia Code(s): J96.01 - ACUTE RESPIRATORY FAILURE WITH HYPOXIA; J96.02 - ACUTE RESPIRATORY FAILURE WITH HYPERCAPNIA (6) Afib Code(s): I48.91 - UNSPECIFIED ATRIAL FIBRILLATION Qualifiers: Qualified Code(s): I48.11 - Longstanding persistent atrial fibrillation (7) Diabetes Code(s): E11.9 - TYPE 2 DIABETES MELLITUS WITHOUT COMPLICATIONS (8) H/O: lung cancer Code(s): Z85.118 - PERSONAL HISTORY OF MALIGNANT NEOPLASM OF BRONCHUS AND LUNG (9) Lactic acid acidosis Code(s): E87.2 - ACIDOSIS (10) Pleural effusion Code(s): J90 - PLEURAL EFFUSION, NOT ELSEWHERE CLASSIFIED
--- NOTE | 2019-04-14 12:17 | PN ---
Progress Note, Physician History of Present Illness: pulmonary alert,comfortable,-resp distress - Current Medication List Current Medications: Active Medications Albuterol/Ipratropium (Duoneb -) 1 amp NEB Q6H PRN PRN Reason: SHORTNESS OF BREATH Last Admin: 04/13/19 23:06 Dose: 1 amp Apixaban (Eliquis -) 2.5 mg PO BID [facility] Last Admin: 04/14/19 10:40 Dose: 2.5 mg Atorvastatin Calcium (Lipitor -) 20 mg PO HS [facility] Last Admin: 04/13/19 22:43 Dose: 20 mg Furosemide (Lasix Injection -) 80 mg IVPUSH DAILY [facility] Last Admin: 04/14/19 10:40 Dose: 80 mg Ceftriaxone Sodium 1 gm/ (Dextrose) 50 mls @ 200 mls/hr IVPB DAILY [facility]; Protocol Last Admin: 04/14/19 10:40 Dose: 200 mls/hr Insulin Aspart (Novolog Vial Sliding Scale -) 1 vial SQ [facility]; Protocol Last Admin: 04/14/19 06:28 Dose: Not Given Insulin Detemir (Levemir Vial) 8 units SQ [facility] Last Admin: 04/13/19 23:02 Dose: 8 units Methylprednisolone Sodium Succinate (Solu-Medrol -) 40 mg IVPUSH BID [facility] Last Admin: 04/14/19 10:40 Dose: 40 mg Metoprolol Succinate (Toprol Xl -) 25 mg PO DAILY [facility] Last Admin: 04/14/19 10:40 Dose: 25 mg Morphine Sulfate (Morphine Sulfate) 0.5 mg IVPUSH Q4H PRN PRN Reason: PAIN LEVEL 6-10 Last Admin: 04/13/19 22:53 Dose: 0.5 mg - Objective Vital Signs: Vital Signs Temperature 96.9 F L 04/14/19 02:00 Pulse Rate 112 H 04/14/19 02:00 Respiratory Rate 24 H 04/14/19 02:00 Blood Pressure 131/48 L 04/14/19 02:00 O2 Sat by Pulse Oximetry (%) 97 04/13/19 22:00 Constitutional: Yes: Well Nourished, Calm Eyes: Yes: WNL HENT: Yes: WNL Neck: Yes: WNL Cardiovascular: Yes: Pulse Irregular, S1, S2 Respiratory: Yes: Diminished (few rhonchi) Gastrointestinal: Yes: Normal Bowel Sounds, Soft Extremities: Yes: WNL Edema: Yes Labs: CBC, BMP 04/14/19 06:10 04/13/19 06:25 INR, PTT INR 1.55 (0.83-1.09) H 04/09/19 19:25 Problem List - Problems (1) Acute respiratory failure with hypercapnia Code(s): J96.02 - ACUTE RESPIRATORY FAILURE WITH HYPERCAPNIA (2) Acute respiratory failure with hypoxia and hypercapnia Code(s): J96.01 - ACUTE RESPIRATORY FAILURE WITH HYPOXIA; J96.02 - ACUTE RESPIRATORY FAILURE WITH HYPERCAPNIA (3) Pleural effusion Code(s): J90 - PLEURAL EFFUSION, NOT ELSEWHERE CLASSIFIED (4) VHD (valvular heart disease) Code(s): I38 - ENDOCARDITIS, VALVE UNSPECIFIED (5) Diabetes Code(s): E11.9 - TYPE 2 DIABETES MELLITUS WITHOUT COMPLICATIONS Qualifiers: Diabetes mellitus type: type 2 (6) Pleural effusion Code(s): J90 - PLEURAL EFFUSION, NOT ELSEWHERE CLASSIFIED (7) Afib Code(s): I48.91 - UNSPECIFIED ATRIAL FIBRILLATION Qualifiers: Atrial fibrillation type: longstanding persistent Qualified Code(s): I48.11 - Longstanding persistent atrial fibrillation (8) H/O: lung cancer Code(s): Z85.118 - PERSONAL HISTORY OF MALIGNANT NEOPLASM OF BRONCHUS AND LUNG (9) Lactic acid acidosis Code(s): E87.2 - ACIDOSIS (10) Acute diastolic CHF (congestive heart failure) Code(s): I50.31 - ACUTE DIASTOLIC (CONGESTIVE) HEART FAILURE (11) Acute CHF (congestive heart failure) Code(s): I50.9 - HEART FAILURE, UNSPECIFIED Assessment/Plan IMP ACUTE HYPOXEMIC/HYPERCAPNEIC RESPIRATORY FAILURE ACUTE ON CHRONIC CHF VALVULAR HD H/O LUNG CA S/P RESECTION 2011 R PLEURAL EFFUSION DM HTN H/O COPD AFIB ON ELIQUIS ELEVATED LACTATE LEVEL ANEMIA PLAN DIURETICS O2 INHALED BRONCHODILATORS NIPPV NEEDED TAPER STEROIDS HOSPICE CARE DR CEDEÑO Problem List - Problems (1) Acute respiratory failure with hypercapnia Code(s): J96.02 - ACUTE RESPIRATORY FAILURE WITH HYPERCAPNIA (2) Acute respiratory failure with hypoxia and hypercapnia Code(s): J96.01 - ACUTE RESPIRATORY FAILURE WITH HYPOXIA; J96.02 - ACUTE RESPIRATORY FAILURE WITH HYPERCAPNIA (3) Pleural effusion Code(s): J90 - PLEURAL EFFUSION, NOT ELSEWHERE CLASSIFIED (4) VHD (valvular heart disease) Code(s): I38 - ENDOCARDITIS, VALVE UNSPECIFIED (5) Diabetes Code(s): E11.9 - TYPE 2 DIABETES MELLITUS WITHOUT COMPLICATIONS (6) Pleural effusion Code(s): J90 - PLEURAL EFFUSION, NOT ELSEWHERE CLASSIFIED (7) Afib Code(s): I48.91 - UNSPECIFIED ATRIAL FIBRILLATION (8) H/O: lung cancer Code(s): Z85.118 - PERSONAL HISTORY OF MALIGNANT NEOPLASM OF BRONCHUS AND LUNG (9) Lactic acid acidosis Code(s): E87.2 - ACIDOSIS (10) Acute diastolic CHF (congestive heart failure) Code(s): I50.31 - ACUTE DIASTOLIC (CONGESTIVE) HEART FAILURE (11) Acute CHF (congestive heart failure) Code(s): I50.9 - HEART FAILURE, UNSPECIFIED
--- NOTE | 2019-04-14 16:23 | ECHO ---
Name: MARTI DEVON Exam:Adult Echocardiogram Study Date: 04/14/2019 02:12 PM Age: 88 yrs Reason For Study: chf Height: 61 in Weight: 156 lb BSA: 1.7 m2 MMode/2D Measurements & Calculations RVDd: 3.5 cm Ao root diam: 2.2 cm IVSd: 0.84 cm LA dimension: 4.6 cm LVIDd: 4.1 cm ACS: 1.1 cm LVIDs: 2.9 cm LVPWd: 0.86 cm IVSs: 1.1 cm LVPWs: 1.3 cm EDV(Teich): 75.1 ml ESV(Teich): 33.0 ml LVOT diam: 1.9 cm Doppler Measurements & Calculations MV E max zuleima: 90.5 cm/sec Ao V2 max: 241.2 cm/sec Ao max P.8 mmHg Ao V2 mean: 185.4 cm/sec Ao mean P.2 mmHg Ao V2 VTI: 54.8 cm TRELL(I,D): 0.70 cm2 AI P1/2t: 470.0 msec TRELL(V,D): 0.96 cm2 AI max zuleima: 302.4 cm/sec LV V1 max P.6 mmHg AI max P.6 mmHg LV V1 mean P.3 mmHg AI dec slope: 188.5 cm/sec2 LV V1 max: 79.7 cm/sec LV V1 mean: 52.3 cm/sec LV V1 VTI: 13.1 cm MR max zuleima: 333.4 cm/sec SV(LVOT): 38.3 ml MR max P.7 mmHg TR max zuleima: 254.7 cm/sec PI end-d zuleima: 78.7 cm/sec TR max P.1 mmHg Procedure A two-dimensional transthoracic echocardiogram with color flow and Doppler was performed. The study w as technically difficult with many images being suboptimal in quality. Left Ventricle The left ventricular size, thickness and function are normal. The left ventricle is not well visualiz ed. The left ventricular ejection fraction is normal. Regional wall motion abnormalities cannot be excluded d ue to limited visualization. Right Ventricle The right ventricle is not well visualized. Atria The left atrium is moderately dilated. The right atrium is moderately dilated. Mitral Valve There is mild to moderate mitral valve thickening. The mitral valve is not well visualized. There is no mitral valve stenosis. There is moderate to severe mitral regurgitation. Tricuspid Valve There is mild tricuspid valve thickening. The tricuspid valve is not well visualized. There is no tri cuspid stenosis. There is severe tricuspid regurgitation. Right ventricular systolic pressure is elevated at 30- 40mmHg. Aortic Valve The aortic valve is not well visualized. There is moderate aortic valve thickening. There is moderate aortic sclerosis.;. Moderate valvular aortic stenosis. Moderate aortic regurgitation. Pulmonic Valve The pulmonic valve is not well visualized. Great Vessels The aortic root is normal size. Pericardium/Pleura There is no pericardial effusion. Interpretation Summary The left ventricular size, thickness and function are normal The left ventricular ejection fraction is normal. The right ventricle is not well visualized. The left atrium is moderately dilated. The right atrium is moderately dilated. Moderate aortic regurgitation. There is severe tricuspid regurgitation. Right ventricular systolic pressure is elevated at 30-40mmHg. The study was technically difficult with many images being suboptimal in quality. There is moderate to severe mitral regurgitation. The aortic valve is not well visualized. Moderate valvular aortic stenosis. There is mild to moderate mitral valve thickening. The mitral valve is not well visualized. The tricuspid valve is not well visualized. There is moderate aortic valve thickening. There is moderate aortic sclerosis.; Regional wall motion abnormalities cannot be excluded due to limited visualization. The left ventricle is not well visualized. MD Aldair Jean 04/14/2019 04:22 PM
[2019-04-14] MEDS: ATORVASTATIN CA 20 MG TABLET (FP) PO SCH (21:39)
[2019-04-14] MEDS: INSULIN (LEVEMIR) 100 UNITS/ML UNITS SQ SCH (21:40)
[2019-04-15] MEDS: MORPHINE SULFATE 2 MG/ML VIAL IVPUSH PRN (05:51)
[2019-04-15] MEDS: INSULIN SLIDING SCALE (NOVOLOG) 1 VIAL SQ SCH ×4 (06:06→23:00)
[2019-04-15 06:58] LABS: HEMATOCRIT 34.2 % (32.4-45.2); HEMOGLOBIN 11.2 GM/dL (10.7-15.3); MCH 30.9 pg (25.7-33.7); MCHC 32.8 g/dl (32.0-36.0); MEAN PLT VOLUME 8.9 fl (7.5-11.1); PLATELET COUNT 126 K/MM3 (134-434); RBC 3.64 M/mm3 (3.60-5.2); RDW 19.3 % (11.6-15.6); WHITE BLOOD COUNT 9.8 K/mm3 (4.0-10.0)
[2019-04-15 07:37] LABS: BILIRUBIN,TOTAL 0.5 mg/dL (0.2-1); BLOOD UREA NITROGEN 100.5 mg/dL (7-18); CALCIUM 8.6 mg/dL (8.5-10.1); MAGNESIUM 3.1 mg/dL (1.8-2.4); POTASSIUM 3.7 mmol/L (3.5-5.1); TOT PROT 6.1 g/dl (6.4-8.2)
[2019-04-15] MEDS ORDERED: cefTRIAXone SODIUM 1 GM VIAL ONE (09:51)
[2019-04-15] MEDS ORDERED: DEXTROSE 5%-WATER - 50 ML IVPB ONE (09:52)
[2019-04-15] MEDS: metoPROLOL SUCCINATE 25 MG TAB.SR.24H (FP) PO SCH (09:56)
[2019-04-15] MEDS: CEFTRIAXONE 1 GM in DEXTROSE 5%-WATER - 50 ML IVPB SCH (09:56)
[2019-04-15] MEDS: APIXABAN 2.5 MG TABLET PO SCH ×2 (09:56→22:31)
[2019-04-15] MEDS: methylPREDNISolone NA SUCC 40 MG/1 ML VIAL IVPUSH SCH ×2 (09:56→22:33)
[2019-04-15] MEDS: FUROSEMIDE 40 MG/4 ML INJECTABLE VIAL IVPUSH SCH (09:56)
--- NOTE | 2019-04-15 10:15 | PN ---
Progress Note, Physician History of Present Illness: Sensorium and dyspnea improved, LE edema persists. - Current Medication List Current Medications: Active Medications Apixaban (Eliquis -) 2.5 mg PO BID [facility] Last Admin: 04/15/19 09:56 Dose: 2.5 mg Atorvastatin Calcium (Lipitor -) 20 mg PO HS [facility] Last Admin: 04/14/19 21:39 Dose: 20 mg Furosemide (Lasix Injection -) 80 mg IVPUSH DAILY [facility] Last Admin: 04/15/19 09:56 Dose: 80 mg Ceftriaxone Sodium 1 gm/ (Dextrose) 50 mls @ 200 mls/hr IVPB DAILY [facility]; Protocol Last Admin: 04/15/19 09:56 Dose: 200 mls/hr Insulin Aspart (Novolog Vial Sliding Scale -) 1 vial SQ ACHS [facility]; Protocol Last Admin: 04/15/19 06:06 Dose: 5 units Insulin Detemir (Levemir Vial) 8 units SQ HS [facility] Last Admin: 04/14/19 21:40 Dose: 8 units Methylprednisolone Sodium Succinate (Solu-Medrol -) 20 mg IVPUSH BID [facility] Last Admin: 04/15/19 09:56 Dose: 20 mg Metoprolol Succinate (Toprol Xl -) 25 mg PO DAILY [facility] Last Admin: 04/15/19 09:56 Dose: 25 mg Morphine Sulfate (Morphine Sulfate) 0.5 mg IVPUSH Q4H PRN PRN Reason: PAIN LEVEL 6-10 Last Admin: 04/15/19 05:51 Dose: 0.5 mg - Objective Vital Signs: Vital Signs Temperature 98.1 F 04/15/19 06:00 Pulse Rate 67 04/15/19 06:00 Respiratory Rate 20 04/15/19 06:00 Blood Pressure 143/72 04/15/19 06:00 O2 Sat by Pulse Oximetry (%) 99 04/14/19 22:00 Constitutional: Yes: No Distress, Calm Neck: Yes: Supple Cardiovascular: Yes: Pulse Irregular, Murmur (2/6 SM) Respiratory: Yes: Regular, Diminished, On Nasal O2 Gastrointestinal: Yes: Normal Bowel Sounds, Soft Edema: Yes Edema: LLE: 1+, RLE: 1+ Labs: CBC, BMP 04/15/19 05:20 04/15/19 05:20 INR, PTT INR 1.55 (0.83-1.09) H 04/09/19 19:25 Problem List - Problems (1) Abdominal mass, left upper quadrant Code(s): R19.02 - LEFT UPPER QUADRANT ABDOMINAL SWELLING, MASS AND LUMP (2) Acute diastolic CHF (congestive heart failure) Code(s): I50.31 - ACUTE DIASTOLIC (CONGESTIVE) HEART FAILURE (3) Acute respiratory failure with hypoxia and hypercapnia Code(s): J96.01 - ACUTE RESPIRATORY FAILURE WITH HYPOXIA; J96.02 - ACUTE RESPIRATORY FAILURE WITH HYPERCAPNIA (4) Afib Code(s): I48.91 - UNSPECIFIED ATRIAL FIBRILLATION Qualifiers: Atrial fibrillation type: longstanding persistent Qualified Code(s): I48.11 - Longstanding persistent atrial fibrillation (5) Azotemia Code(s): R79.89 - OTHER SPECIFIED ABNORMAL FINDINGS OF BLOOD CHEMISTRY (6) Diabetes Code(s): E11.9 - TYPE 2 DIABETES MELLITUS WITHOUT COMPLICATIONS Qualifiers: Diabetes mellitus type: type 2 (7) Pleural effusion Code(s): J90 - PLEURAL EFFUSION, NOT ELSEWHERE CLASSIFIED Assessment/Plan 04/14/2019 Echo: Normal LV size and fxn, mod JAIME, mod-severe MR, severe TR, mod and AR 02/23/2019 Echo: Normal LV size with preserved LVEF 55-60%, mild septal HK, mod dilated RV, mod LAE, severe GUILLERMO, severe MR, TR, AR similar to previous 09/2018 1. Acute Hypoxic and Hypercapneic Respiratory Failure 2. Acute on Chronic diastolic CHF with Right Pleural Effusion due to valvular cardiomyopathy 3. Coronary artery disease angina pectoris 4. Persistent atrial fibrillation currently on anticoagulation therapy, [id number] score of 5 5. Hypertension 6. Diabetes Mellitus 7. H/o Lung CA s/p resection 2010 with newly diagnosed gastric mass 8. COPD 9. Anemia PLAN: 1. Continue anticoagulation with DOAC's/Eliquis 2.5 bid 2. Continue Toprol-XL 25 qd, hemodynamics permitting 3. Continue Lipitor 20 qhs 4. Decrease IV diuresis given worsening azotemia with close monitoring of diuretic response, renal function and electrolytes 5. Family declines thoracentesis, requests inpatient hospice 6. O2 to keep SpO2 >90%, BD as needed, empiric abx course, IV steroid taper
[2019-04-15] MEDS ORDERED: FUROSEMIDE 40 MG/4 ML INJECTABLE VIAL IVPUSH SCH (10:23)
--- NOTE | 2019-04-15 11:38 | PN ---
Progress Note (short form) - Note Progress Note: waxing and waning mental status son at bedside Vital Signs - 24 hr 04/14/19 04/14/19 04/14/19 14:00 18:00 21:00 Temperature 98.1 F Pulse Rate 91 H 96 H Respiratory 22 H Rate Blood Pressure 147/98 125/71 O2 Sat by Pulse 96 Oximetry (%) 04/14/19 04/15/19 04/15/19 22:00 02:00 06:00 Temperature 97.1 F L 97.3 F L 98.1 F Pulse Rate 108 H 95 H 67 Respiratory 20 18 20 Rate Blood Pressure 115/64 120/70 143/72 O2 Sat by Pulse 96 Oximetry (%) Current Medications Generic Name Dose Route Start Last Admin Trade Name Freq PRN Reason Stop Dose Admin Apixaban 2.5 mg 04/12/19 22:00 04/15/19 09:56 Eliquis - PO 2.5 mg BID [facility] Administration Atorvastatin Calcium 20 mg 04/10/19 22:00 04/14/19 21:39 Lipitor - PO 20 mg HS [facility] Administration Furosemide 40 mg 04/15/19 10:23 Lasix Injection - IVPUSH DAILY [facility] Ceftriaxone Sodium 1 gm/ 50 mls @ 200 mls/hr 04/12/19 10:00 04/15/19 09:56 Dextrose IVPB 200 mls/hr DAILY [facility] Administration Protocol Insulin Aspart 1 vial 04/10/19 07:00 04/15/19 06:06 Novolog Vial Sliding Scale - SQ 5 units ACHS [facility] Administration Protocol Insulin Detemir 8 units 04/11/19 22:00 04/14/19 21:40 Levemir Vial SQ 8 units HS [facility] Administration Methylprednisolone Sodium Succinate 20 mg 04/14/19 12:17 04/15/19 09:56 Solu-Medrol - IVPUSH 20 mg BID [facility] Administration Metoprolol Succinate 25 mg 04/11/19 10:00 04/15/19 09:56 Toprol Xl - PO 25 mg DAILY [facility] Administration Morphine Sulfate 0.5 mg 04/13/19 11:42 04/15/19 05:51 Morphine Sulfate IVPUSH 0.5 mg Q4H PRN Administration PAIN LEVEL 6-10 Laboratory Results - last 24 hr 04/14/19 04/14/19 04/14/19 11:56 16:44 21:36 WBC RBC Hgb Hct MCV MCH MCHC RDW Plt Count MPV PTT (Actin FS) Sodium Potassium Chloride Carbon Dioxide Anion Gap BUN Creatinine Est GFR (CKD-EPI)AfAm Est GFR (CKD-EPI)NonAf POC Glucometer 204 192 286 Random Glucose Calcium Magnesium Total Bilirubin AST ALT Alkaline Phosphatase Total Protein Albumin 04/15/19 04/15/19 04/15/19 05:20 05:20 05:20 WBC 9.8 RBC 3.64 Hgb 11.2 Hct 34.2 MCV 94.0 MCH 30.9 MCHC 32.8 RDW 19.3 H Plt Count 126 L MPV 8.9 PTT (Actin FS) 29.0 Sodium 137 Potassium 3.7 Chloride 92 L Carbon Dioxide 36 H Anion Gap 10 BUN 100.5 H Creatinine 1.0 Est GFR (CKD-EPI)AfAm 57.84 Est GFR (CKD-EPI)NonAf 49.91 POC Glucometer Random Glucose 231 H Calcium 8.6 Magnesium 3.1 H Total Bilirubin 0.5 AST 44 H ALT 73 H Alkaline Phosphatase 298 H Total Protein 6.1 L Albumin 3.0 L 04/15/19 05:47 WBC RBC Hgb Hct MCV MCH MCHC RDW Plt Count MPV PTT (Actin FS) Sodium Potassium Chloride Carbon Dioxide Anion Gap BUN Creatinine Est GFR (CKD-EPI)AfAm Est GFR (CKD-EPI)NonAf POC Glucometer 225 Random Glucose Calcium Magnesium Total Bilirubin AST ALT Alkaline Phosphatase Total Protein Albumin S1 S2 Irregular Lungs ronchi and crackles B/L Abd - soft, obese, NT edema++ A/P CHF decompensation Afib COPD H/.O lung Ca gastric mass-->new finding per family Pneumonia ?cellulitis-- likely venous insuf -- on hospice -- son agreed for iv lasix and antibiotics only -- son now wants to take her home-- home hospice -- no aggressive work up for gastric tumor -- Morphine prn -- continue with meds -- spoke with mental health social worker -- will dc iv antibiotics tomorrow-- last day --poor prognosis Problem List - Problems (1) Liver mass Code(s): R16.0 - HEPATOMEGALY, NOT ELSEWHERE CLASSIFIED (2) Acute CHF (congestive heart failure) Code(s): I50.9 - HEART FAILURE, UNSPECIFIED (3) Acute diastolic CHF (congestive heart failure) Code(s): I50.31 - ACUTE DIASTOLIC (CONGESTIVE) HEART FAILURE (4) Acute respiratory failure with hypercapnia Code(s): J96.02 - ACUTE RESPIRATORY FAILURE WITH HYPERCAPNIA (5) Acute respiratory failure with hypoxia and hypercapnia Code(s): J96.01 - ACUTE RESPIRATORY FAILURE WITH HYPOXIA; J96.02 - ACUTE RESPIRATORY FAILURE WITH HYPERCAPNIA (6) Afib Code(s): I48.91 - UNSPECIFIED ATRIAL FIBRILLATION Qualifiers: Atrial fibrillation type: longstanding persistent Qualified Code(s): I48.11 - Longstanding persistent atrial fibrillation (7) Diabetes Code(s): E11.9 - TYPE 2 DIABETES MELLITUS WITHOUT COMPLICATIONS Qualifiers: Diabetes mellitus type: type 2 (8) H/O: lung cancer Code(s): Z85.118 - PERSONAL HISTORY OF MALIGNANT NEOPLASM OF BRONCHUS AND LUNG (9) Lactic acid acidosis Code(s): E87.2 - ACIDOSIS (10) Pleural effusion Code(s): J90 - PLEURAL EFFUSION, NOT ELSEWHERE CLASSIFIED
--- NOTE | 2019-04-15 12:48 | PN ---
Progress Note (short form) - Note Progress Note: PULMONARY Arousable today but not answering questions. Vital Signs Period Temp Pulse Resp BP Sys/Mason Pulse Ox Last 24 Hr 97.1 F-98.1 F 67-108 18-22 115-147/64-98 96-99 Gen: NAD at rest Heart: RRR Lung: scattered rhonchi, wheezes Abd: soft, nontender Ext: + edema CBC, BMP 04/15/19 05:20 04/15/19 05:20 Active Medications Apixaban (Eliquis -) 2.5 mg PO BID [facility] Last Admin: 04/15/19 09:56 Dose: 2.5 mg Atorvastatin Calcium (Lipitor -) 20 mg PO HS [facility] Last Admin: 04/14/19 21:39 Dose: 20 mg Furosemide (Lasix Injection -) 40 mg IVPUSH DAILY [facility] Ceftriaxone Sodium 1 gm/ (Dextrose) 50 mls @ 200 mls/hr IVPB DAILY [facility]; Protocol Last Admin: 04/15/19 09:56 Dose: 200 mls/hr Insulin Aspart (Novolog Vial Sliding Scale -) 1 vial SQ ACHS [facility]; Protocol Last Admin: 04/15/19 06:06 Dose: 5 units Insulin Detemir (Levemir Vial) 8 units SQ HS [facility] Last Admin: 04/14/19 21:40 Dose: 8 units Methylprednisolone Sodium Succinate (Solu-Medrol -) 20 mg IVPUSH BID [facility] Last Admin: 04/15/19 09:56 Dose: 20 mg Metoprolol Succinate (Toprol Xl -) 25 mg PO DAILY [facility] Last Admin: 04/15/19 09:56 Dose: 25 mg Morphine Sulfate (Morphine Sulfate) 0.5 mg IVPUSH Q4H PRN PRN Reason: PAIN LEVEL 6-10 Last Admin: 04/15/19 05:51 Dose: 0.5 mg A/P Acute Hypoxic and Hypercapneic Respiratory Failure Acute on Chronic CHF Right Pleural Effusion h/o Lung Ca COPD Atrial Fibrillation HTN DM Anemia - continue lasix - monitor urine output, creatinine - inhaled bronchodilators - continue medrol - O2 to keep SpO2 >90% - aspiration precautions - for hospice placement
[2019-04-15] MEDS ORDERED: FUROSEMIDE 40 MG/4 ML INJECTABLE VIAL IVPUSH ONE (15:50)
--- NOTE | 2019-04-15 15:50 | PN ---
Progress Note, Physician History of Present Illness: Pt seen and examined at bedside. She appear lethargic today. - Current Medication List Current Medications: Active Medications Albuterol/Ipratropium (Duoneb -) 1 amp NEB RQID [facility] Apixaban (Eliquis -) 2.5 mg PO BID [facility] Last Admin: 04/15/19 09:56 Dose: 2.5 mg Atorvastatin Calcium (Lipitor -) 20 mg PO HS [facility] Last Admin: 04/14/19 21:39 Dose: 20 mg Furosemide (Lasix Injection -) 40 mg IVPUSH DAILY [facility] Ceftriaxone Sodium 1 gm/ (Dextrose) 50 mls @ 200 mls/hr IVPB DAILY [facility]; Protocol Last Admin: 04/15/19 09:56 Dose: 200 mls/hr Insulin Aspart (Novolog Vial Sliding Scale -) 1 vial SQ ACHS [facility]; Protocol Last Admin: 04/15/19 14:00 Dose: 4 units Insulin Detemir (Levemir Vial) 8 units SQ HS [facility] Last Admin: 04/14/19 21:40 Dose: 8 units Methylprednisolone Sodium Succinate (Solu-Medrol -) 20 mg IVPUSH BID [facility] Last Admin: 04/15/19 09:56 Dose: 20 mg Metoprolol Succinate (Toprol Xl -) 25 mg PO DAILY [facility] Last Admin: 04/15/19 09:56 Dose: 25 mg Morphine Sulfate (Morphine Sulfate) 0.5 mg IVPUSH Q4H PRN PRN Reason: PAIN LEVEL 6-10 Last Admin: 04/15/19 05:51 Dose: 0.5 mg - Objective Vital Signs: Vital Signs Temperature 97.2 F L 04/15/19 10:00 Pulse Rate 98 H 04/15/19 10:00 Respiratory Rate 18 04/15/19 10:00 Blood Pressure 136/72 04/15/19 10:00 O2 Sat by Pulse Oximetry (%) 97 04/15/19 10:00 Constitutional: Yes: Calm Eyes: Yes: Conjunctiva Clear Cardiovascular: Yes: S1, S2 Respiratory: Yes: Rhonchi Gastrointestinal: Yes: Soft Genitourinary: Yes: Incontinence Musculoskeletal: Yes: Muscle Weakness Edema: Yes Edema: LLE: 2+, RLE: 2+ Integumentary: Yes: Venous Stasis Changes Neurological: Yes: Lethargy Labs: CBC, BMP 04/15/19 05:20 04/15/19 05:20 INR, PTT INR 1.55 (0.83-1.09) H 04/09/19 19:25 Problem List - Problems (1) Azotemia Code(s): R79.89 - OTHER SPECIFIED ABNORMAL FINDINGS OF BLOOD CHEMISTRY (2) Afib Code(s): I48.91 - UNSPECIFIED ATRIAL FIBRILLATION Qualifiers: Atrial fibrillation type: longstanding persistent Qualified Code(s): I48.11 - Longstanding persistent atrial fibrillation (3) CHF (congestive heart failure) Code(s): I50.9 - HEART FAILURE, UNSPECIFIED (4) Pleural effusion Code(s): J90 - PLEURAL EFFUSION, NOT ELSEWHERE CLASSIFIED Assessment/Plan Current Medications Generic Name Dose Route Start Last Admin Trade Name Freq PRN Reason Stop Dose Admin Albuterol/Ipratropium 1 amp 04/15/19 16:00 Duoneb - NEB RQID [facility] Apixaban 2.5 mg 04/12/19 22:00 04/15/19 09:56 Eliquis - PO 2.5 mg BID [facility] Administration Atorvastatin Calcium 20 mg 04/10/19 22:00 04/14/19 21:39 Lipitor - PO 20 mg HS [facility] Administration Furosemide 40 mg 04/15/19 10:23 Lasix Injection - IVPUSH DAILY [facility] Ceftriaxone Sodium 1 gm/ 50 mls @ 200 mls/hr 04/12/19 10:00 04/15/19 09:56 Dextrose IVPB 200 mls/hr DAILY [facility] Administration Protocol Insulin Aspart 1 vial 04/10/19 07:00 04/15/19 14:00 Novolog Vial Sliding Scale - SQ 4 units ACHS [facility] Administration Protocol Insulin Detemir 8 units 04/11/19 22:00 04/14/19 21:40 Levemir Vial SQ 8 units HS [facility] Administration Methylprednisolone Sodium Succinate 20 mg 04/14/19 12:17 04/15/19 09:56 Solu-Medrol - IVPUSH 20 mg BID [facility] Administration Metoprolol Succinate 25 mg 04/11/19 10:00 04/15/19 09:56 Toprol Xl - PO 25 mg DAILY [facility] Administration Morphine Sulfate 0.5 mg 04/13/19 11:42 04/15/19 05:51 Morphine Sulfate IVPUSH 0.5 mg Q4H PRN Administration PAIN LEVEL 6-10 Impression 1. azotemia 2. fluid overload 3. chf 4. hx lung cancer 5. DM 6. a-fib 7. anemia Plan - cont lasix - monitor volume status - family discussing GOC - monitor lytes - volume status improving - cardio follow up - steroids can contribute to elevated bun - ua neg for protein - keep net negative
[2019-04-15] MEDS: ALBUTEROL SO4 2.5/IPRATROPIUM 0.5 INH SOL 3 ML VIAL.NEB. NEB SCH ×2 (16:00→20:51)
[2019-04-15] MEDS: ATORVASTATIN CA 20 MG TABLET (FP) PO SCH (22:32)
[2019-04-15] MEDS: INSULIN (LEVEMIR) 100 UNITS/ML UNITS SQ SCH (22:32)
[2019-04-16] MEDS: INSULIN SLIDING SCALE (NOVOLOG) 1 VIAL SQ SCH ×4 (06:21→21:12)
[2019-04-16 06:40] LABS: HEMATOCRIT 35.9 % (32.4-45.2); HEMOGLOBIN 11.5 GM/dL (10.7-15.3); MCH 30.3 pg (25.7-33.7); MCHC 32.1 g/dl (32.0-36.0); MEAN CELL VOLUME 94.5 fl (80-96); MEAN PLT VOLUME 8.5 fl (7.5-11.1); PLATELET COUNT 113 K/MM3 (134-434); RBC 3.79 M/mm3 (3.60-5.2); RDW 19.6 % (11.6-15.6)
[2019-04-16] MEDS: ALBUTEROL SO4 2.5/IPRATROPIUM 0.5 INH SOL 3 ML VIAL.NEB. NEB SCH ×4 (07:51→21:15)
[2019-04-16] MEDS ORDERED: cefTRIAXone SODIUM 1 GM VIAL ONE (08:59)
[2019-04-16] MEDS ORDERED: DEXTROSE 5%-WATER - 50 ML IVPB ONE (08:59)
--- NOTE | 2019-04-16 09:24 | PN ---
Progress Note, Physician History of Present Illness: More lethargic and anorexic today, LE edema persists. - Current Medication List Current Medications: Active Medications Albuterol/Ipratropium (Duoneb -) 1 amp NEB RQID [facility] Last Admin: 04/16/19 07:51 Dose: 1 amp Apixaban (Eliquis -) 2.5 mg PO BID [facility] Last Admin: 04/15/19 22:31 Dose: 2.5 mg Atorvastatin Calcium (Lipitor -) 20 mg PO HS [facility] Last Admin: 04/15/19 22:32 Dose: 20 mg Furosemide (Lasix Injection -) 40 mg IVPUSH DAILY [facility] Ceftriaxone Sodium 1 gm/ (Dextrose) 50 mls @ 200 mls/hr IVPB DAILY [facility]; Protocol Last Admin: 04/15/19 09:56 Dose: 200 mls/hr Insulin Aspart (Novolog Vial Sliding Scale -) 1 vial SQ ACHS [facility]; Protocol Last Admin: 04/16/19 06:21 Dose: Not Given Insulin Detemir (Levemir Vial) 8 units SQ HS [facility] Last Admin: 04/15/19 22:32 Dose: 8 units Methylprednisolone Sodium Succinate (Solu-Medrol -) 20 mg IVPUSH BID [facility] Last Admin: 04/15/19 22:33 Dose: 20 mg Metoprolol Succinate (Toprol Xl -) 25 mg PO DAILY [facility] Last Admin: 04/15/19 09:56 Dose: 25 mg Morphine Sulfate (Morphine Sulfate) 0.5 mg IVPUSH Q4H PRN PRN Reason: PAIN LEVEL 6-10 Last Admin: 04/15/19 05:51 Dose: 0.5 mg - Objective Vital Signs: Vital Signs Temperature 98.2 F 04/16/19 05:18 Pulse Rate 105 H 04/16/19 05:18 Respiratory Rate 18 04/16/19 05:18 Blood Pressure 138/87 04/16/19 05:18 O2 Sat by Pulse Oximetry (%) 98 04/15/19 22:00 Constitutional: Yes: No Distress, Calm Neck: Yes: Supple Cardiovascular: Yes: Pulse Irregular Respiratory: Yes: Regular, Diminished Gastrointestinal: Yes: Soft, Hypoactive Bowel Sounds Genitourinary: Yes: Roth Present Edema: Yes Edema: LLE: 1+, RLE: 1+ Labs: CBC, BMP 04/16/19 05:20 04/15/19 05:20 INR, PTT INR 1.55 (0.83-1.09) H 04/09/19 19:25 - ....Imaging EKG: Report Reviewed (Tele: Afib) Problem List - Problems (1) Abdominal mass, left upper quadrant Code(s): R19.02 - LEFT UPPER QUADRANT ABDOMINAL SWELLING, MASS AND LUMP (2) Acute diastolic CHF (congestive heart failure) Code(s): I50.31 - ACUTE DIASTOLIC (CONGESTIVE) HEART FAILURE (3) Acute respiratory failure with hypoxia and hypercapnia Code(s): J96.01 - ACUTE RESPIRATORY FAILURE WITH HYPOXIA; J96.02 - ACUTE RESPIRATORY FAILURE WITH HYPERCAPNIA (4) Afib Code(s): I48.91 - UNSPECIFIED ATRIAL FIBRILLATION Qualifiers: Atrial fibrillation type: longstanding persistent Qualified Code(s): I48.11 - Longstanding persistent atrial fibrillation (5) Azotemia Code(s): R79.89 - OTHER SPECIFIED ABNORMAL FINDINGS OF BLOOD CHEMISTRY (6) Diabetes Code(s): E11.9 - TYPE 2 DIABETES MELLITUS WITHOUT COMPLICATIONS Qualifiers: Diabetes mellitus type: type 2 (7) Pleural effusion Code(s): J90 - PLEURAL EFFUSION, NOT ELSEWHERE CLASSIFIED Assessment/Plan 04/14/2019 Echo: Normal LV size and fxn, mod JAIME, mod-severe MR, severe TR, mod and AR 02/23/2019 Echo: Normal LV size with preserved LVEF 55-60%, mild septal HK, mod dilated RV, mod LAE, severe GUILLERMO, severe MR, TR, AR similar to previous 09/2018 1. Acute Hypoxic and Hypercapneic Respiratory Failure 2. Acute on Chronic diastolic CHF with Right Pleural Effusion due to valvular cardiomyopathy 3. Coronary artery disease angina pectoris 4. Persistent atrial fibrillation currently on anticoagulation therapy, [id number] score of 5 5. Hypertension 6. Diabetes Mellitus 7. H/o Lung CA s/p resection 2010 with newly diagnosed gastric mass 8. COPD 9. Anemia PLAN: 1. Continue anticoagulation with DOAC's/Eliquis 2.5 bid 2. Continue Toprol-XL 25 qd, hemodynamics permitting 3. Continue Lipitor 20 qhs 4. IV diuresis with close monitoring of diuretic response, renal function and electrolytes 5. Family declines thoracentesis, requests inpatient hospice 6. O2 to keep SpO2 >90%, BD as needed, empiric abx course, IV steroid taper
[2019-04-16] MEDS: CEFTRIAXONE 1 GM in DEXTROSE 5%-WATER - 50 ML IVPB SCH (09:26)
[2019-04-16] MEDS: methylPREDNISolone NA SUCC 40 MG/1 ML VIAL IVPUSH SCH ×2 (09:26→21:04)
[2019-04-16] MEDS: metoPROLOL SUCCINATE 25 MG TAB.SR.24H (FP) PO SCH (09:27)
[2019-04-16] MEDS: APIXABAN 2.5 MG TABLET PO SCH ×2 (09:27→21:04)
--- NOTE | 2019-04-16 09:35 | PN ---
Progress Note (short form) - Note Progress Note: pt seen/ examined chart reviewed awake/ comfortable son at bedside' Vital Signs Temp 98.2 F 04/16/19 05:18 Pulse 105 H 04/16/19 05:18 Resp 18 04/16/19 05:18 BP 138/87 04/16/19 05:18 Pulse Ox 98 04/15/19 22:00 Intake & Output 04/15/19 04/15/19 04/16/19 11:59 23:59 11:59 Intake Total 120 230 50 Output Total 2100 350 Balance 120 -1870 -300 Intake: Oral 120 230 50 Output: Urine 2100 350 Roth 2100 350 Other: Voiding Method Indwelling Catheter Indwelling Catheter Bowel Movement No Active Medications Albuterol/Ipratropium (Duoneb -) 1 amp NEB RQID [facility] Last Admin: 04/16/19 07:51 Dose: 1 amp Apixaban (Eliquis -) 2.5 mg PO BID [facility] Last Admin: 04/16/19 09:27 Dose: 2.5 mg Atorvastatin Calcium (Lipitor -) 20 mg PO HS [facility] Last Admin: 04/15/19 22:32 Dose: 20 mg Furosemide (Lasix Injection -) 40 mg IVPUSH DAILY [facility] Last Admin: 04/16/19 09:26 Dose: 40 mg Ceftriaxone Sodium 1 gm/ (Dextrose) 50 mls @ 200 mls/hr IVPB DAILY [facility]; Protocol Last Admin: 04/16/19 09:26 Dose: 200 mls/hr Insulin Aspart (Novolog Vial Sliding Scale -) 1 vial SQ ACHS [facility]; Protocol Last Admin: 04/16/19 06:21 Dose: Not Given Insulin Detemir (Levemir Vial) 8 units SQ HS [facility] Last Admin: 04/15/19 22:32 Dose: 8 units Methylprednisolone Sodium Succinate (Solu-Medrol -) 20 mg IVPUSH BID [facility] Last Admin: 04/16/19 09:26 Dose: 20 mg Metoprolol Succinate (Toprol Xl -) 25 mg PO DAILY [facility] Last Admin: 04/16/19 09:27 Dose: 25 mg Morphine Sulfate (Morphine Sulfate) 0.5 mg IVPUSH Q4H PRN PRN Reason: PAIN LEVEL 6-10 Last Admin: 04/15/19 05:51 Dose: 0.5 mg CBC, BMP 04/16/19 05:20 04/15/19 05:20 Physical S1 S2 Irregular Lungs crackles B/L Abd - soft, obese, edema++ A/P CHF decompensation Afib COPD H/.O lung Ca gastric mass-->new finding per family Pneumonia ?cellulitis-- likely venous insuf -- on hospice -- son agreed for iv lasix and antibiotics only -- son now wants to take her home-- home hospice -- no aggressive work up for gastric tumor -- Morphine prn -- continue with meds Plan- Home hospice-Likely on Friday-- d/w field project manager also.
--- NOTE | 2019-04-16 13:10 | PN ---
Progress Note (short form) - Note Progress Note: Lethargic. Breathing is non-labored. No acute events overnight. Intake & Output 04/13/19 04/14/19 04/15/19 04/16/19 23:59 23:59 23:59 23:59 Intake Total 1055 360 350 170 Output Total 6967 511 8564 350 Balance -445 -490 -1750 -180 Last Vital Signs Temp Pulse Resp BP Pulse Ox 97.5 F L 108 H 18 116/80 100 04/16/19 10:00 04/16/19 10:00 04/16/19 10:00 04/16/19 10:00 04/16/19 10:00 Active Medications Albuterol/Ipratropium (Duoneb -) 1 amp NEB RQID [facility] Last Admin: 04/16/19 07:51 Dose: 1 amp Apixaban (Eliquis -) 2.5 mg PO BID [facility] Last Admin: 04/16/19 09:27 Dose: 2.5 mg Atorvastatin Calcium (Lipitor -) 20 mg PO HS [facility] Last Admin: 04/15/19 22:32 Dose: 20 mg Furosemide (Lasix Injection -) 40 mg IVPUSH DAILY [facility] Last Admin: 04/16/19 09:26 Dose: 40 mg Ceftriaxone Sodium 1 gm/ (Dextrose) 50 mls @ 200 mls/hr IVPB DAILY [facility]; Protocol Last Admin: 04/16/19 09:26 Dose: 200 mls/hr Insulin Aspart (Novolog Vial Sliding Scale -) 1 vial SQ ACHS [facility]; Protocol Last Admin: 04/16/19 12:04 Dose: 4 units Insulin Detemir (Levemir Vial) 8 units SQ HS [facility] Last Admin: 04/15/19 22:32 Dose: 8 units Methylprednisolone Sodium Succinate (Solu-Medrol -) 20 mg IVPUSH BID [facility] Last Admin: 04/16/19 09:26 Dose: 20 mg Metoprolol Succinate (Toprol Xl -) 25 mg PO DAILY [facility] Last Admin: 04/16/19 09:27 Dose: 25 mg Gen: Lethargic, NAD Heart: RRR Lung: scattered rhonchi, no wheezes Abd: soft, nontender Ext: + edema Laboratory Results - last 24 hr 04/15/19 04/15/19 04/16/19 16:32 21:58 05:20 WBC 11.0 H RBC 3.79 Hgb 11.5 Hct 35.9 MCV 94.5 MCH 30.3 MCHC 32.1 RDW 19.6 H Plt Count 113 L MPV 8.5 PTT (Actin FS) POC Glucometer 251 164 04/16/19 04/16/19 04/16/19 05:20 05:38 12:02 WBC RBC Hgb Hct MCV MCH MCHC RDW Plt Count MPV PTT (Actin FS) 25.9 POC Glucometer 140 230 A/P Acute Hypoxic and Hypercapneic Respiratory Failure Acute on Chronic CHF Right Pleural Effusion h/o Lung Ca COPD Atrial Fibrillation HTN DM Anemia - continue lasix - monitor urine output, creatinine - inhaled bronchodilators - continue medrol - O2 to keep SpO2 >90% - aspiration precautions - for hospice placement Dr Martinez
--- NOTE | 2019-04-16 15:47 | PN ---
Progress Note, Physician History of Present Illness: Pt seen and examined at bedside. She is more awake today. Edema is improving. - Current Medication List Current Medications: Active Medications Albuterol/Ipratropium (Duoneb -) 1 amp NEB RQID [facility] Last Admin: 04/16/19 11:50 Dose: 1 amp Apixaban (Eliquis -) 2.5 mg PO BID [facility] Last Admin: 04/16/19 09:27 Dose: 2.5 mg Atorvastatin Calcium (Lipitor -) 20 mg PO HS [facility] Last Admin: 04/15/19 22:32 Dose: 20 mg Furosemide (Lasix Injection -) 40 mg IVPUSH DAILY [facility] Last Admin: 04/16/19 09:26 Dose: 40 mg Ceftriaxone Sodium 1 gm/ (Dextrose) 50 mls @ 200 mls/hr IVPB DAILY [facility]; Protocol Last Admin: 04/16/19 09:26 Dose: 200 mls/hr Insulin Aspart (Novolog Vial Sliding Scale -) 1 vial SQ [facility]; Protocol Last Admin: 04/16/19 12:04 Dose: 4 units Insulin Detemir (Levemir Vial) 8 units SQ [facility] Last Admin: 04/15/19 22:32 Dose: 8 units Methylprednisolone Sodium Succinate (Solu-Medrol -) 20 mg IVPUSH BID [facility] Last Admin: 04/16/19 09:26 Dose: 20 mg Metoprolol Succinate (Toprol Xl -) 25 mg PO DAILY [facility] Last Admin: 04/16/19 09:27 Dose: 25 mg - Objective Vital Signs: Vital Signs Temperature 97.5 F L 04/16/19 10:00 Pulse Rate 108 H 04/16/19 10:00 Respiratory Rate 18 04/16/19 10:00 Blood Pressure 116/80 04/16/19 10:00 O2 Sat by Pulse Oximetry (%) 100 04/16/19 10:00 Constitutional: Yes: Calm Eyes: Yes: Conjunctiva Clear HENT: Yes: Atraumatic Neck: Yes: Supple Cardiovascular: Yes: S1, S2 Respiratory: Yes: On Nasal O2 Gastrointestinal: Yes: Normal Bowel Sounds, Soft Genitourinary: Yes: WNL Musculoskeletal: Yes: WNL Edema: Yes Edema: LLE: 2+, RLE: 2+ Neurological: Yes: Oriented Psychiatric: Yes: Oriented Labs: CBC, BMP 04/16/19 05:20 04/15/19 05:20 INR, PTT INR 1.55 (0.83-1.09) H 04/09/19 19:25 Problem List - Problems (1) Azotemia Code(s): R79.89 - OTHER SPECIFIED ABNORMAL FINDINGS OF BLOOD CHEMISTRY (2) Afib Code(s): I48.91 - UNSPECIFIED ATRIAL FIBRILLATION Qualifiers: Atrial fibrillation type: longstanding persistent Qualified Code(s): I48.11 - Longstanding persistent atrial fibrillation (3) CHF (congestive heart failure) Code(s): I50.9 - HEART FAILURE, UNSPECIFIED (4) Pleural effusion Code(s): J90 - PLEURAL EFFUSION, NOT ELSEWHERE CLASSIFIED Assessment/Plan Current Medications Generic Name Dose Route Start Last Admin Trade Name Freq PRN Reason Stop Dose Admin Albuterol/Ipratropium 1 amp 04/15/19 16:00 04/16/19 11:50 Duoneb - NEB 1 amp RQID [facility] Administration Apixaban 2.5 mg 04/12/19 22:00 04/16/19 09:27 Eliquis - PO 2.5 mg BID [facility] Administration Atorvastatin Calcium 20 mg 04/10/19 22:00 04/15/19 22:32 Lipitor - PO 20 mg HS [facility] Administration Furosemide 40 mg 04/15/19 10:23 04/16/19 09:26 Lasix Injection - IVPUSH 40 mg DAILY [facility] Administration Ceftriaxone Sodium 1 gm/ 50 mls @ 200 mls/hr 04/12/19 10:00 04/16/19 09:26 Dextrose IVPB 200 mls/hr DAILY [facility] Administration Protocol Insulin Aspart 1 vial 04/10/19 07:00 04/16/19 12:04 Novolog Vial Sliding Scale - SQ 4 units ACHS [facility] Administration Protocol Insulin Detemir 8 units 04/11/19 22:00 04/15/19 22:32 Levemir Vial SQ 8 units HS [facility] Administration Methylprednisolone Sodium Succinate 20 mg 04/14/19 12:17 04/16/19 09:26 Solu-Medrol - IVPUSH 20 mg BID [facility] Administration Metoprolol Succinate 25 mg 04/11/19 10:00 04/16/19 09:27 Toprol Xl - PO 25 mg DAILY [facility] Administration Impression 1. azotemia 2. fluid overload 3. chf 4. hx lung cancer 5. DM 6. a-fib 7. anemia Plan - cont lasix - no new labs, will order am labs - give extra lasix if needed - discussed with family - possible comfort care next week - steroids can contribute to elevated bun - ua neg for protein - keep net negative
[2019-04-16] MEDS: ATORVASTATIN CA 20 MG TABLET (FP) PO SCH (21:04)
[2019-04-16] MEDS: INSULIN (LEVEMIR) 100 UNITS/ML UNITS SQ SCH (21:11)
[2019-04-17] MEDS: INSULIN SLIDING SCALE (NOVOLOG) 1 VIAL SQ SCH ×4 (06:45→22:50)
[2019-04-17 07:35] LABS: HEMATOCRIT 35.8 % (32.4-45.2); HEMOGLOBIN 11.4 GM/dL (10.7-15.3); MCH 30.1 pg (25.7-33.7); MCHC 31.8 g/dl (32.0-36.0); MEAN CELL VOLUME 94.7 fl (80-96); MEAN PLT VOLUME 8.4 fl (7.5-11.1); PLATELET COUNT 146 K/MM3 (134-434); RBC 3.78 M/mm3 (3.60-5.2); RDW 19.5 % (11.6-15.6); WHITE BLOOD COUNT 14.7 K/mm3 (4.0-10.0)
[2019-04-17] MEDS: ALBUTEROL SO4 2.5/IPRATROPIUM 0.5 INH SOL 3 ML VIAL.NEB. NEB SCH ×4 (07:49→20:40)
[2019-04-17 08:02] LABS: ALBUMIN 2.8 g/dl (3.4-5.0); BILIRUBIN,TOTAL 0.5 mg/dL (0.2-1); BLOOD UREA NITROGEN 83.7 mg/dL (7-18); CREATININE 0.7 mg/dL (0.55-1.3); POTASSIUM 3.6 mmol/L (3.5-5.1); TOT PROT 5.9 g/dl (6.4-8.2)
[2019-04-17] MEDS: metoPROLOL SUCCINATE 25 MG TAB.SR.24H (FP) PO SCH (09:13)
[2019-04-17] MEDS: FUROSEMIDE 40 MG/4 ML INJECTABLE VIAL IVPUSH SCH (09:13)
[2019-04-17] MEDS: methylPREDNISolone NA SUCC 40 MG/1 ML VIAL IVPUSH SCH ×2 (09:13→22:39)
[2019-04-17] MEDS: APIXABAN 2.5 MG TABLET PO SCH ×2 (09:13→22:39)
--- NOTE | 2019-04-17 10:09 | PN ---
Progress Note, Physician History of Present Illness: More awake and interactive today, LE edema persists. - Current Medication List Current Medications: Active Medications Albuterol/Ipratropium (Duoneb -) 1 amp NEB RQID [facility] Last Admin: 04/17/19 07:49 Dose: 1 amp Apixaban (Eliquis -) 2.5 mg PO BID [facility] Last Admin: 04/17/19 09:13 Dose: 2.5 mg Atorvastatin Calcium (Lipitor -) 20 mg PO [facility] Last Admin: 04/16/19 21:04 Dose: 20 mg Furosemide (Lasix Injection -) 60 mg IVPUSH DAILY [facility] Last Admin: 04/17/19 09:13 Dose: 60 mg Insulin Aspart (Novolog Vial Sliding Scale -) 1 vial SQ [facility]; Protocol Last Admin: 04/17/19 06:45 Dose: Not Given Insulin Detemir (Levemir Vial) 8 units SQ [facility] Last Admin: 04/16/19 21:11 Dose: 8 units Methylprednisolone Sodium Succinate (Solu-Medrol -) 20 mg IVPUSH BID [facility] Last Admin: 04/17/19 09:13 Dose: 20 mg Metoprolol Succinate (Toprol Xl -) 25 mg PO DAILY [facility] Last Admin: 04/17/19 09:13 Dose: 25 mg - Objective Vital Signs: Vital Signs Temperature 98.0 F 04/17/19 09:12 Pulse Rate 124 H 04/17/19 09:40 Respiratory Rate 24 H 04/17/19 09:40 Blood Pressure 152/93 04/17/19 09:12 O2 Sat by Pulse Oximetry (%) 98 04/17/19 09:40 Constitutional: Yes: No Distress, Calm Neck: Yes: Supple Cardiovascular: Yes: Regular Rate and Rhythm, Murmur (2/6 SM) Respiratory: Yes: Regular, Diminished, On Nasal O2 Gastrointestinal: Yes: Normal Bowel Sounds, Soft Edema: Yes Edema: LLE: 1+, RLE: 1+ Labs: CBC, BMP 04/17/19 06:35 04/17/19 06:35 INR, PTT INR 1.55 (0.83-1.09) H 04/09/19 19:25 - ....Imaging EKG: Report Reviewed (Tele: Afib) Problem List - Problems (1) Abdominal mass, left upper quadrant Code(s): R19.02 - LEFT UPPER QUADRANT ABDOMINAL SWELLING, MASS AND LUMP (2) Acute diastolic CHF (congestive heart failure) Code(s): I50.31 - ACUTE DIASTOLIC (CONGESTIVE) HEART FAILURE (3) Acute respiratory failure with hypoxia and hypercapnia Code(s): J96.01 - ACUTE RESPIRATORY FAILURE WITH HYPOXIA; J96.02 - ACUTE RESPIRATORY FAILURE WITH HYPERCAPNIA (4) Afib Code(s): I48.91 - UNSPECIFIED ATRIAL FIBRILLATION Qualifiers: Atrial fibrillation type: longstanding persistent Qualified Code(s): I48.11 - Longstanding persistent atrial fibrillation (5) Azotemia Code(s): R79.89 - OTHER SPECIFIED ABNORMAL FINDINGS OF BLOOD CHEMISTRY (6) Diabetes Code(s): E11.9 - TYPE 2 DIABETES MELLITUS WITHOUT COMPLICATIONS Qualifiers: Diabetes mellitus type: type 2 (7) Pleural effusion Code(s): J90 - PLEURAL EFFUSION, NOT ELSEWHERE CLASSIFIED Assessment/Plan 04/14/2019 Echo: Normal LV size and fxn, mod JAIME, mod-severe MR, severe TR, mod and AR 02/23/2019 Echo: Normal LV size with preserved LVEF 55-60%, mild septal HK, mod dilated RV, mod LAE, severe GUILLERMO, severe MR, TR, AR similar to previous 09/2018 1. Acute Hypoxic and Hypercapneic Respiratory Failure 2. Acute on Chronic diastolic CHF with Right Pleural Effusion due to valvular cardiomyopathy 3. Coronary artery disease angina pectoris 4. Persistent atrial fibrillation currently on anticoagulation therapy, [id number] score of 5 5. Hypertension 6. Diabetes Mellitus 7. H/o Lung CA s/p resection 2010 with newly diagnosed gastric mass 8. COPD 9. Anemia PLAN: 1. Continue anticoagulation with DOAC's/Eliquis 2.5 bid 2. Continue Toprol-XL 25 qd, hemodynamics permitting 3. Continue Lipitor 20 qhs 4. IV diuresis with close monitoring of diuretic response, renal function and electrolytes 5. Family declines thoracentesis, requests inpatient hospice 6. O2 to keep SpO2 >90%, BD as needed, empiric abx course, IV steroid taper
[2019-04-17] MEDS ORDERED: MORPHINE SULFATE 2 MG/ML VIAL IVPUSH PRN (13:27)
--- NOTE | 2019-04-17 13:28 | PN ---
Progress Note (short form) - Note Progress Note: PULMONARY More alert, awake today. Breathing slightly improved. Vital Signs Period Temp Pulse Resp BP Sys/Mason Pulse Ox Last 24 Hr 97.3 F-98.0 F 101-124 18-26 127-152/60-93 96-98 Gen: NAD at rest Heart: RRR Lung: scattered rhonchi, wheezes Abd: soft, nontender Ext: + edema CBC, BMP 04/17/19 06:35 04/17/19 06:35 Active Medications Albuterol/Ipratropium (Duoneb -) 1 amp NEB RQID [facility] Last Admin: 04/17/19 12:20 Dose: 1 amp Apixaban (Eliquis -) 2.5 mg PO BID [facility] Last Admin: 04/17/19 09:13 Dose: 2.5 mg Atorvastatin Calcium (Lipitor -) 20 mg PO HS [facility] Last Admin: 04/16/19 21:04 Dose: 20 mg Furosemide (Lasix Injection -) 60 mg IVPUSH DAILY [facility] Last Admin: 04/17/19 09:13 Dose: 60 mg Insulin Aspart (Novolog Vial Sliding Scale -) 1 vial SQ [facility]; Protocol Last Admin: 04/17/19 11:09 Dose: 2 units Insulin Detemir (Levemir Vial) 8 units SQ [facility] Last Admin: 04/16/19 21:11 Dose: 8 units Methylprednisolone Sodium Succinate (Solu-Medrol -) 20 mg IVPUSH BID [facility] Last Admin: 04/17/19 09:13 Dose: 20 mg Metoprolol Succinate (Toprol Xl -) 25 mg PO DAILY [facility] Last Admin: 04/17/19 09:13 Dose: 25 mg Morphine Sulfate (Morphine Injection -) 1 mg IVPUSH Q4H PRN PRN Reason: PAIN LEVEL 6-10 A/P Acute Hypoxic and Hypercapneic Respiratory Failure Acute on Chronic Diastolic Heart Failure Right Pleural Effusion h/o Lung Ca COPD Atrial Fibrillation HTN DM Anemia - continue lasix - monitor urine output, creatinine - inhaled bronchodilators - continue medrol taper - O2 to keep SpO2 >90% - aspiration precautions - for hospice placement
--- NOTE | 2019-04-17 13:29 | PN ---
Progress Note (short form) - Note Progress Note: waxing and waning mental status family at bedside Vital Signs - 24 hr 04/16/19 04/16/19 04/16/19 14:00 18:00 20:36 Temperature 97.8 F 97.3 F L Pulse Rate 101 H 103 H Respiratory 18 18 Rate Blood Pressure 127/60 127/61 O2 Sat by Pulse 96 Oximetry (%) 04/16/19 04/16/19 04/17/19 21:38 22:38 05:35 Temperature 97.5 F L 97.6 F Pulse Rate 102 H 105 H Respiratory 18 18 18 Rate Blood Pressure 132/67 130/93 O2 Sat by Pulse 96 96 Oximetry (%) 04/17/19 04/17/19 04/17/19 09:00 09:12 09:40 Temperature 98.0 F Pulse Rate 118 H 124 H Respiratory 26 H 20 24 H Rate Blood Pressure 152/93 O2 Sat by Pulse 98 98 Oximetry (%) Current Medications Generic Name Dose Route Start Last Admin Trade Name Freq PRN Reason Stop Dose Admin Albuterol/Ipratropium 1 amp 04/15/19 16:00 04/17/19 12:20 Duoneb - NEB 1 amp RQID [facility] Administration Apixaban 2.5 mg 04/12/19 22:00 04/17/19 09:13 Eliquis - PO 2.5 mg BID [facility] Administration Atorvastatin Calcium 20 mg 04/10/19 22:00 04/16/19 21:04 Lipitor - PO 20 mg HS [facility] Administration Furosemide 60 mg 04/16/19 15:47 04/17/19 09:13 Lasix Injection - IVPUSH 60 mg DAILY [facility] Administration Insulin Aspart 1 vial 04/10/19 07:00 04/17/19 11:09 Novolog Vial Sliding Scale - SQ 2 units ACHS [facility] Administration Protocol Insulin Detemir 8 units 04/11/19 22:00 04/16/19 21:11 Levemir Vial SQ 8 units HS [facility] Administration Methylprednisolone Sodium Succinate 20 mg 04/14/19 12:17 04/17/19 09:13 Solu-Medrol - IVPUSH 20 mg BID [facility] Administration Metoprolol Succinate 25 mg 04/11/19 10:00 04/17/19 09:13 Toprol Xl - PO 25 mg DAILY [facility] Administration Morphine Sulfate 1 mg 04/17/19 13:27 Morphine Injection - IVPUSH Q4H PRN PAIN LEVEL 6-10 Laboratory Results - last 24 hr 04/16/19 04/16/19 04/17/19 17:11 21:10 06:14 WBC RBC Hgb Hct MCV MCH MCHC RDW Plt Count MPV PTT (Actin FS) Sodium Potassium Chloride Carbon Dioxide Anion Gap BUN Creatinine Est GFR (CKD-EPI)AfAm Est GFR (CKD-EPI)NonAf POC Glucometer 221 254 135 Random Glucose Calcium Magnesium Total Bilirubin AST ALT Alkaline Phosphatase Total Protein Albumin 04/17/19 04/17/19 04/17/19 06:35 06:35 06:35 WBC 14.7 H RBC 3.78 Hgb 11.4 Hct 35.8 MCV 94.7 MCH 30.1 MCHC 31.8 L RDW 19.5 H Plt Count 146 D MPV 8.4 PTT (Actin FS) 29.6 Sodium 144 Potassium 3.6 Chloride 95 L Carbon Dioxide 42 H Anion Gap 7 L BUN 83.7 H Creatinine 0.7 Est GFR (CKD-EPI)AfAm 89.03 Est GFR (CKD-EPI)NonAf 76.82 POC Glucometer Random Glucose 128 H Calcium 9.0 Magnesium 3.0 H Total Bilirubin 0.5 AST 42 H ALT 67 H Alkaline Phosphatase 268 H Total Protein 5.9 L Albumin 2.8 L 04/17/19 11:06 WBC RBC Hgb Hct MCV MCH MCHC RDW Plt Count MPV PTT (Actin FS) Sodium Potassium Chloride Carbon Dioxide Anion Gap BUN Creatinine Est GFR (CKD-EPI)AfAm Est GFR (CKD-EPI)NonAf POC Glucometer 199 Random Glucose Calcium Magnesium Total Bilirubin AST ALT Alkaline Phosphatase Total Protein Albumin S1 S2 Irregular Lungs ronchi and crackles B/L Abd - soft, obese, NT edema++ A/P CHF decompensation Afib COPD H/.O lung Ca gastric mass-->new finding per family Pneumonia ?cellulitis-- likely venous insuf -- on hospice-- will be going home for hospice -- son agreed for iv lasix -- dc antibiotics -- no aggressive work up for gastric tumor -- Morphine prn -- continue with meds -- spoke with social worker psychiatric Problem List - Problems (1) Liver mass Code(s): R16.0 - HEPATOMEGALY, NOT ELSEWHERE CLASSIFIED (2) Acute CHF (congestive heart failure) Code(s): I50.9 - HEART FAILURE, UNSPECIFIED (3) Acute diastolic CHF (congestive heart failure) Code(s): I50.31 - ACUTE DIASTOLIC (CONGESTIVE) HEART FAILURE (4) Acute respiratory failure with hypercapnia Code(s): J96.02 - ACUTE RESPIRATORY FAILURE WITH HYPERCAPNIA (5) Acute respiratory failure with hypoxia and hypercapnia Code(s): J96.01 - ACUTE RESPIRATORY FAILURE WITH HYPOXIA; J96.02 - ACUTE RESPIRATORY FAILURE WITH HYPERCAPNIA (6) Afib Code(s): I48.91 - UNSPECIFIED ATRIAL FIBRILLATION Qualifiers: Qualified Code(s): I48.11 - Longstanding persistent atrial fibrillation (7) Diabetes Code(s): E11.9 - TYPE 2 DIABETES MELLITUS WITHOUT COMPLICATIONS (8) H/O: lung cancer Code(s): Z85.118 - PERSONAL HISTORY OF MALIGNANT NEOPLASM OF BRONCHUS AND LUNG (9) Lactic acid acidosis Code(s): E87.2 - ACIDOSIS (10) Pleural effusion Code(s): J90 - PLEURAL EFFUSION, NOT ELSEWHERE CLASSIFIED
[2019-04-17 17:26] VITALS: BMI 29.5
--- NOTE | 2019-04-17 18:19 | PN ---
Progress Note (short form) - Note Progress Note: 1. azotemia 2. fluid overload 3. chf 4. hx lung cancer 5. DM 6. a-fib 7. anemia Current Medications Albuterol/Ipratropium (Duoneb -) 1 amp NEB RQID [facility] Last Admin: 04/17/19 15:50 Dose: 1 amp Apixaban (Eliquis -) 2.5 mg PO BID [facility] Last Admin: 04/17/19 09:13 Dose: 2.5 mg Atorvastatin Calcium (Lipitor -) 20 mg PO HS [facility] Last Admin: 04/16/19 21:04 Dose: 20 mg Furosemide (Lasix Injection -) 60 mg IVPUSH DAILY [facility] Last Admin: 04/17/19 09:13 Dose: 60 mg Insulin Aspart (Novolog Vial Sliding Scale -) [address] [facility]; Protocol Last Admin: 04/17/19 16:32 Dose: 4 units Insulin Detemir (Levemir Vial) 8 units SQ [facility] Last Admin: 04/16/19 21:11 Dose: 8 units Methylprednisolone Sodium Succinate (Solu-Medrol -) 20 mg IVPUSH BID [facility] Last Admin: 04/17/19 09:13 Dose: 20 mg Metoprolol Succinate (Toprol Xl -) 25 mg PO DAILY [facility] Last Admin: 04/17/19 09:13 Dose: 25 mg Morphine Sulfate (Morphine Sulfate) 1 mg IVPUSH Q4H PRN PRN Reason: PAIN LEVEL 6-10 Last Vital Signs Temp Pulse Resp BP Pulse Ox 97.9 F 114 H 24 H 151/76 98 04/17/19 14:00 04/17/19 14:00 04/17/19 09:40 04/17/19 14:00 04/17/19 09:40 Lungs clear heart reg abd soft ext edema CBC, BMP 04/17/19 06:35 04/17/19 06:35 pre-renal azotemia possible hospice transfer
[2019-04-17] MEDS: ATORVASTATIN CA 20 MG TABLET (FP) PO SCH (22:39)
[2019-04-17] MEDS: INSULIN (LEVEMIR) 100 UNITS/ML UNITS SQ SCH (22:55)
[2019-04-18] MEDS: INSULIN SLIDING SCALE (NOVOLOG) 1 VIAL SQ SCH ×4 (06:23→21:46)
[2019-04-18] MEDS: ALBUTEROL SO4 2.5/IPRATROPIUM 0.5 INH SOL 3 ML VIAL.NEB. NEB SCH ×4 (07:35→20:38)
[2019-04-18] MEDS: FUROSEMIDE 40 MG/4 ML INJECTABLE VIAL IVPUSH SCH (09:36)
[2019-04-18] MEDS: methylPREDNISolone NA SUCC 40 MG/1 ML VIAL IVPUSH SCH ×2 (09:36→21:46)
[2019-04-18] MEDS: APIXABAN 2.5 MG TABLET PO SCH ×2 (09:37→21:46)
[2019-04-18] MEDS: metoPROLOL SUCCINATE 25 MG TAB.SR.24H (FP) PO SCH (09:37)
--- NOTE | 2019-04-18 11:32 | DS ---
Physical Examination Vital Signs: Vital Signs Temperature 97.6 F 04/18/19 09:30 Pulse Rate 117 H 04/18/19 09:30 Respiratory Rate 20 04/18/19 09:30 Blood Pressure 138/77 04/18/19 09:30 O2 Sat by Pulse Oximetry (%) 100 04/18/19 07:49 Constitutional: Yes: No Distress Cardiovascular: Yes: Regular Rate and Rhythm Respiratory: Yes: Diminished, Rales Gastrointestinal: Yes: Normal Bowel Sounds. No: Tenderness Edema: Yes Labs: CBC, BMP 04/17/19 06:35 04/17/19 06:35 Discharge Summary Problems reviewed: Yes Reason For Visit: RESPIRATORY DISTRESS/PLEURAL EFFUSION/HYPERKALEMIA Current Active Problems Abdominal mass, left upper quadrant (Acute) Acute CHF (congestive heart failure) (Acute) Acute diastolic CHF (congestive heart failure) (Acute) Acute respiratory failure with hypercapnia (Acute) Acute respiratory failure with hypoxia and hypercapnia (Acute) Afib (Acute) Azotemia (Acute) CHF (congestive heart failure) (Acute) Diabetes (Acute) H/O: lung cancer (Acute) Hyperkalemia (Acute) Lactic acid acidosis (Acute) Leukocytosis (Acute) Liver mass (Acute) Pleural effusion (Acute) Pleural effusion (Acute) Pneumonia (Acute) Respiratory distress (Acute) VHD (valvular heart disease) (Acute) Hospital Course: admitted for respiratory distress- advanced CHF- diastolic dysfunction, pleural effusion, valvular cardiomyopathy,pneumonia Pt evaluated by Pulmonary and Cardiology was on iv antibiotics-- completed now on steroid taper iv lasix family decided home hospice pt prognosis poor family does not want any further aggressive measures Condition: Stable - Instructions Referrals: Jemima Keller MD [Staff Physician] - Disposition: HOME - Home Medications Comprehensive Discharge Medication List: Ambulatory Orders Apixaban [Eliquis] 2.5 mg PO BID 04/09/19 Atorvastatin Calcium 20 mg PO HS 04/09/19 Bumetanide 2 mg PO BID 04/09/19 Diltiazem [Cardizem -] 60 mg PO DAILY 04/09/19 Docusate Sodium [Colace] 300 mg PO DAILY 04/09/19 Insulin Glargine,Hum.rec.anlog [Basaglar Kwikpen U-100] 5 unit SQ HS 04/09/19 Ipratropium/Albuterol Sulfate [Iprat-Albut 0.5-3(2.5) mg/3 ml] 3 ml IH Q6H 04/09 L. Acidophilus/Pectin, [place] [Acidophilus Capsule] 1 each PO DAILY 04/09/19 Magnesium Oxide 400 mg PO BID 04/09/19 Magnesium Oxide 400 mg PO BID 04/09/19 Metoprolol Succinate 25 mg PO DAILY 04/09/19 Nut.tx.gluc.intoler,Lac-Fr,Soy [Glucerna] 237 ml PO BID 04/09/19 Polyethylene Glycol 3350 [Miralax (For Daily Use) -] 17 gm PO DAILY 04/09/19 Potassium Chloride 20 meq PO BID 04/09/19 Sitagliptin Phosphate [Januvia -] 50 mg PO DAILY 04/09/19 Spironolactone [Aldactone] 50 mg PO DAILY 04/09/19 acetaZOLAMIDE [Diamox -] 250 mg PO DAILY 04/09/19
--- NOTE | 2019-04-18 12:15 | PN ---
Progress Note (short form) - Note Progress Note: PULMONARY More alert, awake today. Breathing improving. Vital Signs Period Temp Pulse Resp BP Sys/Mason Pulse Ox Last 24 Hr 97.6 F-98.7 F 87-117 18-20 126-151/66-78 98-100 Gen: NAD at rest Heart: RRR Lung: scattered rhonchi, wheezes Abd: soft, nontender Ext: + edema CBC, BMP 04/17/19 06:35 04/17/19 06:35 Active Medications Albuterol/Ipratropium (Duoneb -) 1 amp NEB RQID [facility]ENDING [facility]ALE TO [facility] Last Admin: 04/18/19 11:40 Dose: 1 amp Apixaban (Eliquis -) 2.5 mg PO BID [facility] Last Admin: 04/18/19 09:37 Dose: 2.5 mg Atorvastatin Calcium (Lipitor -) 20 mg PO HS [facility] Last Admin: 04/17/19 22:39 Dose: 20 mg Furosemide (Lasix Injection -) 60 mg IVPUSH DAILY [facility] Last Admin: 04/18/19 09:36 Dose: 60 mg Insulin Aspart (Novolog Vial Sliding Scale -) 1 vial SQ [facility]; Protocol Last Admin: 04/18/19 11:37 Dose: Not Given Insulin Detemir (Levemir Vial) 8 units SQ [facility] Last Admin: 04/17/19 22:55 Dose: 8 units Methylprednisolone Sodium Succinate (Solu-Medrol -) 20 mg IVPUSH BID [facility] Last Admin: 04/18/19 09:36 Dose: 20 mg Metoprolol Succinate (Toprol Xl -) 25 mg PO DAILY [facility] Last Admin: 04/18/19 09:37 Dose: 25 mg Morphine Sulfate (Morphine Sulfate) 1 mg IVPUSH Q4H PRN PRN Reason: PAIN LEVEL 6-10 Last Admin: 04/18/19 09:37 Dose: 1 mg A/P Acute Hypoxic and Hypercapneic Respiratory Failure Acute on Chronic Diastolic Heart Failure Right Pleural Effusion h/o Lung Ca COPD Atrial Fibrillation HTN DM Anemia - continue lasix - monitor urine output, creatinine - inhaled bronchodilators - continue medrol taper - O2 to keep SpO2 >90% - aspiration precautions - for hospice placement
--- NOTE | 2019-04-18 13:43 | PN ---
Progress Note, Physician History of Present Illness: More awake and interactive today, dyspnea and LE edema improved. - Current Medication List Current Medications: Active Medications Albuterol/Ipratropium (Duoneb -) 1 amp NEB RQID [facility] Last Admin: 04/18/19 11:40 Dose: 1 amp Apixaban (Eliquis -) 2.5 mg PO BID [facility] Last Admin: 04/18/19 09:37 Dose: 2.5 mg Atorvastatin Calcium (Lipitor -) 20 mg PO HS [facility] Last Admin: 04/17/19 22:39 Dose: 20 mg Furosemide (Lasix Injection -) 60 mg IVPUSH DAILY [facility] Last Admin: 04/18/19 09:36 Dose: 60 mg Insulin Aspart (Novolog Vial Sliding Scale -) 1 vial SQ [facility]; Protocol Last Admin: 04/18/19 11:37 Dose: Not Given Insulin Detemir (Levemir Vial) 8 units SQ [facility] Last Admin: 04/17/19 22:55 Dose: 8 units Methylprednisolone Sodium Succinate (Solu-Medrol -) 20 mg IVPUSH BID [facility] Last Admin: 04/18/19 09:36 Dose: 20 mg Metoprolol Succinate (Toprol Xl -) 25 mg PO DAILY [facility] Last Admin: 04/18/19 09:37 Dose: 25 mg Morphine Sulfate (Morphine Sulfate) 1 mg IVPUSH Q4H PRN PRN Reason: PAIN LEVEL 6-10 Last Admin: 04/18/19 09:37 Dose: 1 mg - Objective Vital Signs: Vital Signs Temperature 97.6 F 04/18/19 09:30 Pulse Rate 117 H 04/18/19 09:30 Respiratory Rate 20 04/18/19 09:30 Blood Pressure 138/77 04/18/19 09:30 O2 Sat by Pulse Oximetry (%) 100 04/18/19 07:49 Constitutional: Yes: No Distress, Calm Neck: Yes: Supple Cardiovascular: Yes: Pulse Irregular, Murmur (2/6 SM) Respiratory: Yes: Regular, Diminished, On Nasal O2 Gastrointestinal: Yes: Soft, Hypoactive Bowel Sounds Edema: Yes Edema: LLE: Trace, RLE: Trace Labs: CBC, BMP 04/17/19 06:35 04/17/19 06:35 INR, PTT INR 1.55 (0.83-1.09) H 04/09/19 19:25 - ....Imaging EKG: Report Reviewed (Tele: Afib with PVC) Problem List - Problems (1) Abdominal mass, left upper quadrant Code(s): R19.02 - LEFT UPPER QUADRANT ABDOMINAL SWELLING, MASS AND LUMP (2) Acute diastolic CHF (congestive heart failure) Code(s): I50.31 - ACUTE DIASTOLIC (CONGESTIVE) HEART FAILURE (3) Acute respiratory failure with hypoxia and hypercapnia Code(s): J96.01 - ACUTE RESPIRATORY FAILURE WITH HYPOXIA; J96.02 - ACUTE RESPIRATORY FAILURE WITH HYPERCAPNIA (4) Afib Code(s): I48.91 - UNSPECIFIED ATRIAL FIBRILLATION Qualifiers: Atrial fibrillation type: longstanding persistent Qualified Code(s): I48.11 - Longstanding persistent atrial fibrillation (5) Azotemia Code(s): R79.89 - OTHER SPECIFIED ABNORMAL FINDINGS OF BLOOD CHEMISTRY (6) Diabetes Code(s): E11.9 - TYPE 2 DIABETES MELLITUS WITHOUT COMPLICATIONS Qualifiers: Diabetes mellitus type: type 2 (7) Pleural effusion Code(s): J90 - PLEURAL EFFUSION, NOT ELSEWHERE CLASSIFIED Assessment/Plan 04/14/2019 Echo: Normal LV size and fxn, mod JAIME, mod-severe MR, severe TR, mod and AR 02/23/2019 Echo: Normal LV size with preserved LVEF 55-60%, mild septal HK, mod dilated RV, mod LAE, severe GUILLERMO, severe MR, TR, AR similar to previous 09/2018 1. Acute Hypoxic and Hypercapneic Respiratory Failure 2. Acute on Chronic diastolic CHF with Right Pleural Effusion due to valvular cardiomyopathy 3. Coronary artery disease angina pectoris 4. Persistent atrial fibrillation currently on anticoagulation therapy, [id number] score of 5 5. Hypertension 6. Diabetes Mellitus 7. H/o Lung CA s/p resection 2010 with newly diagnosed gastric mass 8. COPD 9. Anemia PLAN: 1. Continue anticoagulation with DOAC's/Eliquis 2.5 bid 2. Continue Toprol-XL 25 qd, hemodynamics permitting 3. Continue Lipitor 20 qhs 4. IV diuresis with close monitoring of diuretic response, renal function and electrolytes 5. Family declines thoracentesis, requests inpatient hospice 6. O2 to keep SpO2 >90%, BD as needed, completed empiric abx course, IV steroid taper
--- NOTE | 2019-04-18 21:22 | PN ---
Progress Note (short form) - Note Progress Note: 1. azotemia 2. fluid overload 3. chf 4. hx lung cancer 5. DM 6. a-fib 7. anemia Current Medications Albuterol/Ipratropium (Duoneb -) 1 amp NEB RQID [facility] Last Admin: 04/18/19 15:50 Dose: 1 amp Apixaban (Eliquis -) 2.5 mg PO BID [facility] Last Admin: 04/18/19 09:37 Dose: 2.5 mg Atorvastatin Calcium (Lipitor -) 20 mg PO HS [facility] Last Admin: 04/17/19 22:39 Dose: 20 mg Furosemide (Lasix Injection -) 60 mg IVPUSH DAILY [facility] Last Admin: 04/18/19 09:36 Dose: 60 mg Insulin Aspart (Novolog Vial Sliding Scale -) [address] [facility]; Protocol Last Admin: 04/18/19 17:10 Dose: 4 units Insulin Detemir (Levemir Vial) 8 units SQ [facility] Last Admin: 04/17/19 22:55 Dose: 8 units Methylprednisolone Sodium Succinate (Solu-Medrol -) 20 mg IVPUSH BID [facility] Last Admin: 04/18/19 09:36 Dose: 20 mg Metoprolol Succinate (Toprol Xl -) 25 mg PO DAILY [facility] Last Admin: 04/18/19 09:37 Dose: 25 mg Morphine Sulfate (Morphine Sulfate) 1 mg IVPUSH Q4H PRN PRN Reason: PAIN LEVEL 6-10 Last Admin: 04/18/19 09:37 Dose: 1 mg Last Vital Signs Temp Pulse Resp BP Pulse Ox 97.3 F L 88 20 124/70 100 04/18/19 20:19 04/18/19 20:19 04/18/19 20:19 04/18/19 20:19 04/18/19 07:49 Lungs clear heart reg abd soft ext edema CBC, BMP 04/17/19 06:35 04/17/19 06:35 IMP s/p Acute Hypoxic and Hypercapneic Respiratory Failure Acute on Chronic diastolic CHF with Right Pleural Effusion due to valvular cardiomyopathy Coronary artery disease angina pectoris Persistent atrial fibrillation currently on anticoagulation therapy, [id number] score of 5 Hypertension Diabetes Mellitus H/o Lung CA s/p resection 2010 with newly diagnosed gastric mass COPD Anemia pre-renal azotemia Plan possible hospice transfer
[2019-04-18] MEDS: ATORVASTATIN CA 20 MG TABLET (FP) PO SCH (21:46)
[2019-04-18] MEDS: INSULIN (LEVEMIR) 100 UNITS/ML UNITS SQ SCH (21:46)
[2019-04-19 02:38] VITALS: TEMP 97.5
[2019-04-19] MEDS: INSULIN SLIDING SCALE (NOVOLOG) 1 VIAL SQ SCH (06:23)
[2019-04-19 08:04] VITALS: BP 145/88; PULSE 118
[2019-04-19] MEDS: ALBUTEROL SO4 2.5/IPRATROPIUM 0.5 INH SOL 3 ML VIAL.NEB. NEB SCH (08:12)
[2019-04-19] MEDS: methylPREDNISolone NA SUCC 40 MG/1 ML VIAL IVPUSH SCH (08:59)
[2019-04-19] MEDS: metoPROLOL SUCCINATE 25 MG TAB.SR.24H (FP) PO SCH (09:00)
[2019-04-19] MEDS: APIXABAN 2.5 MG TABLET PO SCH (09:00)
[2019-04-19] MEDS: FUROSEMIDE 40 MG/4 ML INJECTABLE VIAL IVPUSH SCH (09:00)
== END 2019-04-19 12:17 | disposition home or self-care (01) | DRG 291 ==
LOC: JER 18:12 → JERBED 20:27 → J4W 04-10 03:03
PROVIDERS: ADMIT Internal Medicine; ATTEND Internal Medicine
DX: I11.0 Hypertensive heart disease with heart failure (principal); J96.02 Acute respiratory failure with hypercapnia; J96.01 Acute respiratory failure with hypoxia; J18.9 Pneumonia, unspecified organism; I38 Endocarditis, valve unspecified; E87.2 Acidosis; L03.115 Cellulitis of right lower limb; I48.19 Other persistent atrial fibrillation; I50.33 Acute on chronic diastolic (congestive) heart failure; E11.65 Type 2 diabetes mellitus with hyperglycemia; D64.9 Anemia, unspecified; Z85.118 Personal history of other malignant neoplasm of bronchus and lung; K31.9 Disease of stomach and duodenum, unspecified; J44.9 Chronic obstructive pulmonary disease, unspecified; E87.5 Hyperkalemia; R16.0 Hepatomegaly, not elsewhere classified; E87.70 Fluid overload, unspecified; I48.91 Unspecified atrial fibrillation; D72.829 Elevated white blood cell count, unspecified; I25.119 Atherosclerotic heart disease of native coronary artery with unspecified angina pectoris
CPT/HCPCS: 36415; 36600; 71045-TC-FY; 71250-TC; 74176-TC; 76705-TC; 80053; 80061; 81003; 82105; 82375; 82378; 82550; 82728; 82803; 82962; 83050; 83540; 83550; 83605; 83721; 83735; 83880; 84443; 84484; 85025; 85027; 85610; 85730; 87040; 87086; 87804; 87899; 93005; 93010; 93306-TC; 93970-TC; 94640; 94660; 99285-25; E0186; J0131